=== PATIENT | male | born 1930 | race Caucasian/White ===

== ENCOUNTER → 2016-03-27 | Outpatient (CLI) | payer OTHER ==
[~2016-03-27] MED LIST: ACT15 PO; ACT30 PO; ASPEC81 PO; ASPI81TA28 PO; ATOR-24 PO; CHOL1000 PO; CLOP1TAB15 PO; DOCU-94 PO; GLYB5TAB8 PO; INSDGI SC; KFL500 PO; LEVO100T PO; LEVO175T PO; LISI-729 PO; LORA-741 PO; METO25TA3 PO; METO50TA16 PO; MRLP17 PO; MULT-190 PO; MULTCHW PO; NTRGSL/4 UT; NVLGIPEN SQ; OMEG10007 PO; OMEP40CA41 PO; OPTIRAY 320 IV PRN; PRLSR20 PO; TRAM-10 PO
--- NOTE | 2016-03-27 16:40 | DIAGNOSTIC IMAGING REPORT ---
CT ANGIOGRAM OF THE BRAIN COMBO CLINICAL HISTORY: Headache. COMPARISON STUDY: CT of the brain dated 09/21/2006. TECHNIQUE: Before and following the IV administration of 116 cc of Optiray 320, CT angiogram of the brain was performed from the skull base to the vertex. Images are reviewed in the axial, sagittal, and coronal planes. 3-D MIPS images are created and assessed. IV contrast was administered without complication. CT DOSE: 755.30 mGy.cm FINDINGS: Brain parenchyma: There are age-related involutional changes noting mild patchy subcortical and periventricular microangiopathic disease. There is no hemorrhage, mass effect, or evidence of acute territorial ischemia by CT criteria. There is no evidence of enhancing mass lesion on the angiogram phase images. No extra-axial fluid collection is seen. Kay-white matter differentiation is preserved. Ventricles, sulci, and cisterns: Prominent secondary to involutional change. CT angiogram of the brain: There is atherosclerotic calcification of the cavernous carotid and vertebral arteries. There is origin of the left posterior cerebral artery. A diminutive right posterior communicating artery is identified. The internal carotid arteries are widely patent, as are the anterior and middle cerebral arteries. The vertebrobasilar system and posterior cerebral arteries are widely patent. The vertebral arteries are codominant. There is no aneurysm, high-grade stenosis, or focal vessel cutoff identified throughout the intracranial circulation. Dural sinuses: Clear as visualized. Orbits: The bony orbits are intact. The orbital contents are normal as visualized. There are bilateral ocular lens implants. Sinuses and mastoids: The visualized paranasal sinuses are clear. The mastoid air cells are well pneumatized. Calvarium: Unremarkable. IMPRESSION: 1. There is no hemorrhage, mass effect, or evidence of acute territorial ischemia by CT criteria. 2. Unremarkable CT angiogram of the brain. Electronically signed by: Gurdeep Lara M.D. 03/27/2016 4:39 PM Dictated Date/Time: 03/27/2016 4:33 PM
== END | disposition home or self-care (01) ==
LOC: C.CTS 15:47
PROVIDERS: ATTEND Internal Medicine Interventional Cardiology
DX: R51 Headache (principal)

== ENCOUNTER → 2016-04-13 | Outpatient (CLI) | payer OTHER ==
[~2016-04-13] MED LIST changes: -OPTIRAY 320 IV PRN
[2016-04-13 17:34] LABS: BASO % 0.5 %; BASO ABS # 0.03 K/uL (0-0.2); COMPLETE YES; EOS % 2.5 %; HEMATOCRIT 37.5 % (42-52); IG% 0.2 %; LYMPH % 23.6 %; LYMPH ABS # 1.31 K/uL (1.2-3.4); MEAN CELL VOLUME 88.4 fL (80-100); MEAN CORPUSCULAR HEMOGLOBIN 31.1 pg (25-34); MEAN CORPUSCULAR HGB CONC 35.2 g/dl (32-36); MEAN PLATELET VOLUME 10.3 fL (7.4-10.4); MONO % 8.5 %; NEUT % 64.7 %; PLATELET COUNT 163 K/uL (130-400); RED BLOOD COUNT 4.24 M/uL (4.7-6.1); WHITE BLOOD COUNT 5.54 K/uL (4.8-10.8)
[2016-04-13 17:42] LABS: ALT/SGPT 35 U/L (12-78); BLOOD UREA NITROGEN 20 mg/dl (7-18); CALCIUM 8.6 mg/dl (8.5-10.1); CARBON DIOXIDE 24 mmol/L (21-32); CHLORIDE 107 mmol/L (98-107); CHOLESTEROL 101 mg/dl (0-200); GLUCOSE 255 mg/dl (70-99); POTASSIUM 4.5 mmol/L (3.5-5.1); SODIUM 140 mmol/L (136-145)
[2016-04-13 17:51] LABS: ALB/GLOB RATIO 1.3 (0.9-2); ALKALINE PHOSPHATASE 79 U/L (45-117); AST/SGOT 24 U/L (15-37); CHOLESTEROL/HDL RATIO 2.4; HDL CHOLESTEROL 42 mg/dl; LDL CHOLESTEROL CALCULATED 33 mg/dl; TRIGLYCERIDES 129 mg/dl (0-150); VERY LOW DENSITY LIPOPROT CALC 26 mg/dl
== END | disposition home or self-care (01) ==
LOC: C.LABBFT 10:35
PROVIDERS: ATTEND Internal Medicine
DX: R42 Dizziness and giddiness (principal); E78.5 Hyperlipidemia, unspecified

== ENCOUNTER → 2016-04-15 | Outpatient (CLI) | payer OTHER ==
[2016-04-15 13:38] LABS: ESTIMATED AVERAGE GLUCOSE 154 mg/dl; HA1C FLAG Normal (Normal)
--- NOTE | 2016-04-15 14:47 | DIAGNOSTIC IMAGING REPORT ---
CERVICAL SPINE 5 VIEWS CLINICAL HISTORY: Neck pain. No history of trauma. FINDINGS: AP, lateral, bilateral oblique, and odontoid views of the cervical spine are obtained. No prior studies are available for comparison at the time of dictation. The skeletal structures are osteopenic. There is no radiographic evidence of fracture or subluxation. Vertebral body height and alignment are maintained throughout the cervical spine. The spinolaminar line is preserved. The odontoid process and lateral masses are intact as visualized on the open-mouth view. The top of the dens is obscured. Anterior osteophytes are seen throughout. Advanced degenerative disc space narrowing is seen at C5-C6. Moderate narrowing is seen at C3-C4. Mild narrowing is seen at the remaining levels. A posterior disc-osteophyte complex at C5-C6 likely contributes to mild acquired compromise of the central canal. The spinous processes are preserved. The prevertebral soft tissues are within normal limits. Multilevel bilateral neural foraminal stenosis is seen on the oblique views. Partially imaged apical lung parenchyma is grossly clear. IMPRESSION: 1. No acute bony abnormality is seen involving the cervical spine. 2. Osteopenia and multilevel cervical spondylosis as above. Dictated: 04/15/2016 2:15 PM Transcribed: 04/15/2016 2:46 PM [facility] Electronically signed by: Gurdeep Lara M.D. 04/15/2016 3:13 PM Dictated Date/Time: 04/15/2016 2:15 PM
== END | disposition home or self-care (01) ==
LOC: C.RAD 11:30
PROVIDERS: ATTEND Internal Medicine
DX: E11.8 Type 2 diabetes mellitus with unspecified complications (principal); M54.2 Cervicalgia; M85.88 Other specified disorders of bone density and structure, other site; M47.812 Spondylosis without myelopathy or radiculopathy, cervical region

== ENCOUNTER → 2016-05-15 | Outpatient (CLI) | payer OTHER ==
[2016-05-15 13:48] LABS: ESTIMATED AVERAGE GLUCOSE 160 mg/dl; HA1C FLAG Normal (Normal)
== END | disposition home or self-care (01) ==
LOC: C.LABBFT 08:42
PROVIDERS: ATTEND Physician Assistant Medical
DX: E11.8 Type 2 diabetes mellitus with unspecified complications (principal)

== ENCOUNTER → 2016-06-06 | Outpatient (CLI) | payer OTHER ==
[2016-06-06 13:09] LABS: BLOOD UREA NITROGEN 24 mg/dl (7-18)
== END | disposition home or self-care (01) ==
LOC: C.LAB 10:34
PROVIDERS: ATTEND Physician Assistant
DX: R42 Dizziness and giddiness (principal)

== ENCOUNTER 2016-08-31 17:50 | Inpatient (IN) | payer OTHER ==
[~2016-08-31] VITALS: Ht 177.8 cm; Wt 76.5 kg
[~2016-08-31 17:50] MED LIST changes: -ACT30 PO; -ASPI81TA28 PO; -CHOL1000 PO; -KFL500 PO; -LEVO175T PO; -LORA-741 PO; -METO25TA3 PO; -MRLP17 PO; -MULT-190 PO; -MULTCHW PO; -NTRGSL/4 UT; -OMEG10007 PO; -OMEP40CA41 PO; -PRLSR20 PO; -TRAM-10 PO
[2016-08-31] MEDS ORDERED: SODIUM CHLORIDE 0.9% 1000ML 1,000 ML IV STA (18:29)
[2016-08-31 18:50] LABS: BASO % 0.1 %; BASO ABS # 0.01 K/uL (0-0.2); COMPLETE YES; EOS % 0.2 %; HEMATOCRIT 32.2 % (42-52); IG% 0.3 %; LYMPH % 6.9 %; LYMPH ABS # 0.89 K/uL (1.2-3.4); MEAN CELL VOLUME 89.9 fL (80-100); MEAN CORPUSCULAR HEMOGLOBIN 30.4 pg (25-34); MEAN CORPUSCULAR HGB CONC 33.9 g/dl (32-36); MEAN PLATELET VOLUME 9.2 fL (7.4-10.4); MONO % 9.9 %; NEUT % 82.6 %; PLATELET COUNT 115 K/uL (130-400); RED BLOOD COUNT 3.58 M/uL (4.7-6.1); WHITE BLOOD COUNT 12.86 K/uL (4.8-10.8)
[2016-08-31] MEDS ORDERED: ASPI81TA28 PO (18:56)
[2016-08-31] MEDS ORDERED: LEVO175T PO (18:56)
[2016-08-31] MEDS ORDERED: OMEG10007 PO (18:56)
[2016-08-31] MEDS ORDERED: CHOL1000 PO (18:56)
[2016-08-31] MEDS ORDERED: PRLSR20 PO (18:56)
[2016-08-31] MEDS ORDERED: METO25TA3 PO (18:56)
[2016-08-31] MEDS ORDERED: NTRGSL/4 UT (18:56)
[2016-08-31] MEDS ORDERED: LORA-741 PO (18:56)
[2016-08-31] MEDS ORDERED: ACT30 PO (18:56)
[2016-08-31] MEDS ORDERED: GLYB5TAB8 PO (18:56)
[2016-08-31] MEDS ORDERED: TRAM-10 PO (18:56)
[2016-08-31] MEDS ORDERED: MULT-190 PO (18:56)
[2016-08-31] MEDS ORDERED: MULTCHW PO (18:56)
[2016-08-31] MEDS ORDERED: INSDGI SC (18:56)
[2016-08-31 19:05] LABS: INR 1.1 (0.9-1.1); PARTIAL THROMBOPLASTIN RATIO 1.2
--- NOTE | 2016-08-31 19:07 | DIAGNOSTIC IMAGING REPORT ---
CT OF THE HEAD WITHOUT CONTRAST CLINICAL HISTORY: Altered mental status. Headache. COMPARISON STUDY: Head CT March 27, 2016. CT DOSE: 537.48 mGy.cm TECHNIQUE: Helical axial images of the head were obtained without IV contrast. Automated exposure control was utilized for the study. A dose lowering technique was utilized adhering to the principles of ALARA. FINDINGS: No acute intracranial hemorrhage, midline shift or mass effect is present. Ventricular system is stable. Basilar cisterns are patent. There are no extra-axial collections. White matter hypodensities are unchanged and likely reflect small vessel disease. There are no findings to suggest acute dural sinus thrombosis or acute territorial infarct. There are no significant calvarial abnormalities. Visualized portions of the sinuses and mastoid air cells are clear. IMPRESSION: No acute intracranial findings. Electronically signed by: Jong Mann M.D. 08/31/2016 7:06 PM Dictated Date/Time: 08/31/2016 7:02 PM
[2016-08-31 19:15] LABS: ALT/SGPT 22 U/L (12-78); AST/SGOT 13 U/L (15-37); BLOOD UREA NITROGEN 25 mg/dl (7-18); BUN/CREATININE RATIO 20.4 (10-20); CALCIUM 8.2 mg/dl (8.5-10.1); CARBON DIOXIDE 24 mmol/L (21-32); CHLORIDE 104 mmol/L (98-107); GLUCOSE 153 mg/dl (70-99); MAGNESIUM 1.6 mg/dl (1.8-2.4); POTASSIUM 4.1 mmol/L (3.5-5.1); SODIUM 134 mmol/L (136-145)
--- NOTE | 2016-08-31 19:16 | DIAGNOSTIC IMAGING REPORT ---
CHEST ONE VIEW PORTABLE CLINICAL HISTORY: Altered mental status. Weakness. COMPARISON STUDY: Chest radiograph January 12, 2016. FINDINGS: This study is mildly compromised by motion artifact. Cardiac size is at the upper limits of normal. There is no evidence of pulmonary edema. No pneumothorax or pleural effusion is present. Linear left basilar opacity is suggestive of atelectasis. There is no consolidation to suggest pneumonia. IMPRESSION: No acute cardiopulmonary findings. Electronically signed by: Jong Mann M.D. 08/31/2016 7:15 PM Dictated Date/Time: 08/31/2016 7:13 PM
[2016-08-31] MEDS ORDERED: MAGNESIUM SULFATE 1GM / D5W 1 GM BAG IV STA (19:17)
[2016-08-31 19:22] LABS: ALKALINE PHOSPHATASE 60 U/L (45-117); CKMB/CK RATIO 1.1 (0-3.0)
--- NOTE | 2016-08-31 19:23 | EMERGENCY ROOM VISIT NOTE ---
History Report prepared by Xavi: Yu Encarnacion Under the Supervision of: Berenice ElliottO. First contact with patient: 18:22 Chief Complaint: HEADACHE Stated Complaint: HEADACHE NAUSEA History of Present Illness The patient is a 86 year old male who presents to the Emergency Room via EMS with complaints of a severe headache starting last night. As per , the patient started having dizziness about 2-3 days ago. He had been staggering and was unable to ambulate as normal. The patient describes the dizziness as room- spinning. The dizziness worsened last night. He had a fall this afternoon. As per , the patient was very confused last night. The patient also reports right arm weakness starting about a week ago. He reports increased thirst today. The patient denies any pain currently. He denies doing work outside in the sun. As per , he was recently started on a new pain killer but she is unable to recall the name at this time. He does not have a history of stroke or blood clots. The patient has a history of cardiac stent placement. He denies fevers, chills, chest pain, shortness of breath, nausea, vomiting, or any other complaints. Source of History: patient, spouse/significant other Onset: last night Position: head Symptom Intensity: severe Timing: resolved, other (No pain currently) Associated Symptoms: No fevers, No chills, No chest pain, No SOB, No nausea , No vomiting Review of Systems See HPI for pertinent positives & negatives. A total of 10 systems reviewed and were otherwise negative. Past Medical & Surgical Medical Problems: (1) Acid reflux (2) Altered mental status (3) Coronary artery disease (4) Diabetes (5) High cholesterol (6) Leukocytosis Family History Patient reports no known family medical history. Social History Smoking Status: Never Smoker Marital Status: Housing Status: lives with family Occupation Status: retired Current/Historical Medications Scheduled Aspirin (Aspirin Ec), 81 MG PO DAILY Atorvastatin (Lipitor), 40 MG PO HS Cholecalciferol (Vitamin D3), 1 TAB PO DAILY Clopidogrel (Plavix), 75 MG PO DAILY Docusate Sodium (Colace), 1 CAP PO TID Fish Oil ([place]-3), 1 CAP PO DAILY Glyburide (Micronase), 5 MG PO BID Insulin Aspart (Novolog Flexpen), 1 DOSE SQ UD Insulin Glargine (Lantus), 16 UNITS SC QPM Levothyroxine Sodium (Synthroid), 175 MCG PO DAILY Lisinopril (Zestril), 5 MG PO DAILY Lorazepam (Ativan), 0.5 MG PO UD Metoprolol Succ (Toprol Xl) (Toprol-Xl), 25 MG PO DAILY Multiple Vitamins W/ Minerals (Centrum Silver), 1 TAB PO DAILY Nitroglycerin (Nitrostat), 0.4 MG UT PRN Ocuvite Preservision (Ocuvite Preservision), 1 TAB PO BID Omeprazole (Prilosec), 20 MG PO DAILY Pioglitazone (Actos), 45 MG PO DAILY Scheduled PRN Tramadol (Ultram), 50 MG PO Q6 PRN for Pain Allergies Coded Allergies: Metformin (Verified Allergy, Unknown, UNKNOWN, 01/12/16) Physical Exam Vital Signs Date Time Temp Pulse Resp B/P (MAP) Pulse Ox O2 Delivery O2 Flow Rate FiO2 08/31/16 19:22 82 20 111/56 94 Room Air 08/31/16 19:18 70 142/68 82 139/69 86 111/56 08/31/16 18:47 79 20 135/61 95 Room Air 08/31/16 18:37 94 Room Air 08/31/16 18:25 69 08/31/16 18:06 94 Room Air 08/31/16 18:06 36.9 76 21 138/64 94 Room Air Physical Exam GENERAL: Patient is awake, alert, somewhat anxious appearing but overall comfortable. EYES: The conjunctivae are clear. The pupils are round and reactive. EARS, NOSE, MOUTH AND THROAT: The nose is without any evidence of any deformity. Mucous membranes are moist tongue is midline NECK: The neck is nontender and supple. RESPIRATORY: Normal respiratory effort is noted there is no evidence of wheezing rhonchi or rales CARDIOVASCULAR: Ectopy noted to auscultation, no definite murmurs noted. GASTROINTESTINAL: The abdomen is soft. Bowel sounds are present in all quadrants. Abdomen is nontender MUSCULOSKELETAL/EXTREMITIES: There is no evidence of gross deformity full range of motion is noted in the hips and shoulders SKIN: Trace pedal edema bilaterally. There is no obvious evidence of any rash. There are no petechiae, pallor or cyanosis noted. NEUROLOGIC: Patient is awake alert and oriented to person, place but not time. 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 Medical Decision & Procedures ER Provider Diagnostic Interpretation: X-ray results as stated below per interpretation by me and the radiologist. CHEST ONE VIEW PORTABLE CLINICAL HISTORY: Altered mental status. Weakness. COMPARISON STUDY: Chest radiograph January 12, 2016. FINDINGS: This study is mildly compromised by motion artifact. Cardiac size is at the upper limits of normal. There is no evidence of pulmonary edema. No pneumothorax or pleural effusion is present. Linear left basilar opacity is suggestive of atelectasis. There is no consolidation to suggest pneumonia. IMPRESSION: No acute cardiopulmonary findings. Electronically signed by: Jong Mann M.D. 08/31/2016 7:15 PM Dictated Date/Time: 08/31/2016 7:[address] results as stated below per my review and radiologist interpretation. CT OF THE HEAD WITHOUT CONTRAST CLINICAL HISTORY: Altered mental status. Headache. COMPARISON STUDY: Head CT March 27, 2016. CT DOSE: 537.48 mGy.cm TECHNIQUE: Helical axial images of the head were obtained without IV contrast. Automated exposure control was utilized for the study. A dose lowering technique was utilized adhering to the principles of ALARA. FINDINGS: No acute intracranial hemorrhage, midline shift or mass effect is present. Ventricular system is stable. Basilar cisterns are patent. There are no extra-axial collections. White matter hypodensities are unchanged and likely reflect small vessel disease. There are no findings to suggest acute dural sinus thrombosis or acute territorial infarct. There are no significant calvarial abnormalities. Visualized portions of the sinuses and mastoid air cells are clear. IMPRESSION: No acute intracranial findings. Electronically signed by: Jong Mann M.D. 08/31/2016 7:06 PM Dictated Date/Time: 08/31/2016 7:02 PM Laboratory Results Test 08/31/16 18:35 Prothrombin Time 12.0 SECONDS (9.0-12.0) Prothromb Time International Ratio 1.1 (0.9-1.1) Activated Partial Thromboplast Time 30.6 SECONDS (21.0-31.0) Partial Thromboplastin Ratio 1.2 Magnesium Level 1.6 mg/dl (1.8-2.4) Total Bilirubin 0.7 mg/dl (0.2-1) Direct Bilirubin 0.2 mg/dl (0-0.2) Aspartate Amino Transf (AST/SGOT) 13 U/L (15-37) Alanine Aminotransferase (ALT/SGPT) 22 U/L (12-78) Alkaline Phosphatase 60 U/L (45-117) Total Creatine Kinase 76 U/L (39-308) Creatine Kinase MB 0.8 ng/ml (0.5-3.6) Creatine Kinase MB Ratio 1.1 (0-3.0) Troponin I < 0.015 ng/ml (0-0.045) Total Protein 5.9 gm/dl (6.4-8.2) Albumin 3.1 gm/dl (3.4-5.0) Lipase 37 U/L (73-393) Thyroid Stimulating Hormone (TSH) 0.300 uIu/ml (0.300-4.500) Laboratory results per my review. Medications Administered Medications (Trade) Dose Ordered Sig/Nathaniel Route Start Time Stop Time Status Last Admin Dose Admin Sodium Chloride 1,000 ml @ 999 mls/hr Q1H1M STAT IV 08/31/16 18:29 08/31/16 19:29 DC 08/31/16 18:47 999 MLS/HR Magnesium Sulfate (Magnesium Sulfate) 1 gm NOW STAT IV 08/31/16 19:17 08/31/16 19:18 DC 08/31/16 19:28 1 GM ECG Indication: weakness Rate (beats per minute): 79 Rhythm: sinus rhythm Findings: 1st degree AV block, PVC (frequent), other (No acute ST segment abnormalities) Comparison ECG Date: January 12, 2016 Change: no significant change ED Course 1821: The patient was evaluated in room C02B. A complete history and physical examination were performed. 1828: Sodium Chloride 1000 ml @ 999 mls/hr IV 1916: Magnesium Sulfate 1 gm IV 1944: Upon reevaluation, the patient is resting comfortably. I discussed results and treatment plan with him. He verbalizes agreement and understanding. The patient will be evaluated for further management and care. 1952: I discussed the patient's case [facility] Medical Decision Prior records/ancillary studies reviewed and summarized above. Nursing notes reviewed. Additional history obtained from .. Differential diagnosis: Etiologies such as metabolic, infection, hypo/hyperglycemia, electrolyte abnormalities, cardiac sources, intracerebral event, toxicologic, neurologic, as well as others were entertained. The patient is an 86-year-old male who presented to the emergency department with altered mental status. His states that he's been very unsteady and he' s had headache recently. When his daughter presented to the emergency Department she noticed that he was very confused more than usual. I discussed the patient's laboratory and radiographic studies with him and his family. He was treated with IV fluids. He had an elevated white blood cell count. I discussed his case with the on-call [facility] hospitalist group. Urinalysis was still pending but I do feel is likely the patient has urinary tract infection because she's been complaining of urinary frequency. I discussed this possibility with the hospitalist group. They've agreed to follow-up the urine and start the patient on an antibiotic if it was noted to be consistent with infection. Medication Reconcilliation Current Medication List: was personally reviewed by me Blood Pressure Screening Patient's blood pressure: Normal blood pressure Consults Time Called: 1948 Consulting Physician: Sandy Langley PA-C with [facility] Returned Call: 1952 I discussed the patient's case with Sandy Langley [facility]. Impression Primary Impression: Altered mental status Additional Impressions: Headache Orthostatic hypotension Urinary tract infection Hypomagnesemia Scribe Attestation The scribe's documentation has been prepared under my direction and personally reviewed by me in its entirety. I confirm that the note above accurately reflects all work, treatment, procedures, and medical decision making performed by me. Departure Information Dispostion Being Evaluated By Hospitalist Referrals Aron Busch M.D. (PCP) Patient Instructions My [facility] Problem Qualifiers Primary Impression: Altered mental status Altered mental status type: unspecified Qualified Codes: R41.82 - Altered mental status, unspecified Additional Impressions: Headache Headache type: unspecified
[2016-08-31] MEDS ORDERED: MAGNESIUM HYDROXIDE SUSP 30 ML UDC PO PRN (20:30)
[2016-08-31] MEDS ORDERED: ONDANSETRON INJ 2 MG/ML 2 ML VIAL IV PRN (20:30)
[2016-08-31] MEDS ORDERED: NITROGLYCERIN 0.4 MG SL PER TAB CHARGE UT PRN (20:30)
[2016-08-31] MEDS ORDERED: POLYETHYLENE (MIRALAX) 17 GM PACK PO PRN (20:30)
[2016-08-31] MEDS ORDERED: GLUCOSE 10 TABS/TUBE PO PRN (20:45)
[2016-08-31] MEDS ORDERED: GLUCOSE 40% GEL 15 GM TUBE PO PRN (20:45)
[2016-08-31] MEDS ORDERED: DEXTROSE 50% 50 ML SYR IV PRN (20:45)
[2016-08-31] MEDS ORDERED: GLUCAGON FOR INJ 1 MG VIAL SQ PRN (20:45)
--- NOTE | 2016-08-31 20:56 | History and Physical ---
History & Physical Date & Time of Service: Aug 31, 2016 at 20:30 Chief Complaint: Headache Nausea Primary Care Physician: Aron Busch M.D. History of Present Illness Source: patient This is a pleasant 86 yo M, nicknamed Wilfredo, with PMHx of CAD status post CABG x 1 CANDIE to ostial RCA December 2015, hypertension, hyperlipidemia, DM type II with peripheral neuropathy, CKD stage III, Sanjay's thyroiditis, GERD, BPH and prostatitis, cervical disk disease with associated headache, who presents to the emergency department after a 2 day period of confusion, weakness, and urinary symptoms. The patient's is present with him at bedside. The patient reports that he has had 3 days of intermittent confusion and altered mental status. notes that today he appeared to be so confused that he had some slurring of speech. At one point he was sitting in his chair and was unable to stand up, whereas typically he is a very active person. The patient specifically notes that he has had increased urinary frequency 4 days, burning with urination, darkened urine and incontinence today. He has not experienced these types of symptoms before. There is a report low-grade temperature upon EMS arrival. He reports his oral intake of food and liquids has been the same in comparison he also complains of a headache that lasted approximately 2 days but is not present currently. It starts in the posterior part of his head and causes significant pain. He has been taking tramadol for this. On review of outpatient records the patient had been seen by PCP for headache complaints and it was thought that this is due to cervical disc disease. He was not able to tolerate an MRI due to claustrophobia even with light sedation with 0.5 mg of Ativan PO prior to procedure. Here in the ER a CT of the head was completed and is grossly normal. WBC=12.86 , hemoglobin= 10.9, creatinine = 1.2. Past Medical/Surgical History Medical Problems: (1) Acid reflux Status: Chronic (2) Diabetes Status: Chronic (3) High cholesterol Status: Chronic CAD status post CABG x 1 CANDIE to ostial RCA December 2015, hypertension hyperlipidemia DM type II with peripheral neuropathy CKD stage III Hx Sanjay's thyroiditis GERD BPH prostatitis Family History Patient reports no known family medical history. Social History Smoking Status: Never Smoker Marital Status: Occupational Status: retired Multi-Drug Resistant Organisms History of MDRO: No Allergies Coded Allergies: Metformin (Verified Allergy, Unknown, UNKNOWN, 01/12/16) Home Medications Scheduled Aspirin (Aspirin Ec), 81 MG PO DAILY Atorvastatin (Lipitor), 40 MG PO HS Cholecalciferol (Vitamin D3), 1 TAB PO DAILY Clopidogrel (Plavix), 75 MG PO DAILY Docusate Sodium (Colace), 1 CAP PO TID Fish Oil ([place]-3), 1 CAP PO DAILY Glyburide (Micronase), 5 MG PO BID Insulin Aspart (Novolog Flexpen), 1 DOSE SQ UD Insulin Glargine (Lantus), 16 UNITS SC QPM Levothyroxine Sodium (Synthroid), 175 MCG PO DAILY Lisinopril (Zestril), 5 MG PO DAILY Lorazepam (Ativan), 0.5 MG PO UD Metoprolol Succ (Toprol Xl) (Toprol-Xl), 25 MG PO DAILY Multiple Vitamins W/ Minerals (Centrum Silver), 1 TAB PO DAILY Nitroglycerin (Nitrostat), 0.4 MG UT PRN Ocuvite Preservision (Ocuvite Preservision), 1 TAB PO BID Omeprazole (Prilosec), 20 MG PO DAILY Pioglitazone (Actos), 45 MG PO DAILY Scheduled PRN Tramadol (Ultram), 50 MG PO Q6 PRN for Pain Review of Systems Constitutional: No fever, sweats or chills Eyes: No diplopia, + chronic double vision out of the left eye status post cataract surgery ENT: normal hearing, no trouble swallowing, has history of eye lateral ear pain associated with headache Respiratory: No cough, sputum, dyspnea at rest or on exertion Cardiovascular: No chest pain, tightness or palpitations Abdomen: No pain, nausea, vomiting, diarrhea or constipation Uro: + Increased frequency, + burning, + slightly dark urine, denies hematuria Musculoskeletal: No joint pain, calf pain, swelling Neurologic: + weakness, + peripheral neuropathy, no balance problems, ambulates without assistance Psychiatric: No anxiety or depression Skin: No rash or itch Physical Exam Vital Signs Date Time Temp Pulse Resp B/P (MAP) Pulse Ox O2 Delivery O2 Flow Rate FiO2 08/31/16 19:22 82 20 111/56 94 Room Air 08/31/16 19:18 70 142/68 82 139/69 86 111/56 08/31/16 18:47 79 20 135/61 95 Room Air 08/31/16 18:37 94 Room Air 08/31/16 18:25 69 08/31/16 18:06 94 Room Air 08/31/16 18:06 36.9 76 21 138/64 94 Room Air General: awake, alert, no apparent distress Head: Normocephalic, atraumatic ENT: PERRL, EOMI, no pharyngeal exudate, mucous membranes moist Chest: Clear to auscultation, on room air, no adventitious breath sounds Cardiac: Regular rate and rhythm, + S3, no murmur, no JVD, normal peripheral pulses, good capillary refill Abdominal: NABS x 4 quadrants, soft, nontender to palpation, no rebound, guarding or tenderness Extremities: Normal inspection, no peripheral edema or erythema, calfs nontender to palpation Psych: Normal mood and affect Neuro: AAO x 3, strength intact bilaterally and related 5/5, no motor deficits, speech is clear, no peripheral sensory deficits Diagnostics Laboratory Results Results Past 24 Hours Test 08/31/16 18:35 08/31/16 18:45 Range/Units White Blood Count 12.86 4.8-10.8 K/uL Red Blood Count 3.58 4.7-6.1 M/uL Hemoglobin 10.9 14.0-18.0 g/dL Hematocrit 32.2 42-52 % Mean Corpuscular Volume 89.9 80-100 fL Mean Corpuscular Hemoglobin 30.4 25-34 pg Mean Corpuscular Hemoglobin Concent 33.9 32-36 g/dl Platelet Count 115 130-400 K/uL Mean Platelet Volume 9.2 7.4-10.4 fL Neutrophils (%) (Auto) 82.6 % Lymphocytes (%) (Auto) 6.9 % Monocytes (%) (Auto) 9.9 % Eosinophils (%) (Auto) 0.2 % Basophils (%) (Auto) 0.1 % Neutrophils # (Auto) 10.63 1.4-6.5 K/uL Lymphocytes # (Auto) 0.89 1.2-3.4 K/uL Monocytes # (Auto) 1.27 0.11-0.59 K/uL Eosinophils # (Auto) 0.02 0-0.5 K/uL Basophils # (Auto) 0.01 0-0.2 K/uL RDW Standard Deviation 39.8 36.4-46.3 fL RDW Coefficient of Variation 12.1 11.5-14.5 % Immature Granulocyte % (Auto) 0.3 % Immature Granulocyte # (Auto) 0.04 0.00-0.02 K/uL Prothrombin Time 12.0 9.0-12.0 SECONDS Prothromb Time International Ratio 1.1 0.9-1.1 Activated Partial Thromboplast Time 30.6 21.0-31.0 SECONDS Partial Thromboplastin Ratio 1.2 Sodium Level 134 136-145 mmol/L Potassium Level 4.1 3.5-5.1 mmol/L Chloride Level 104 98-107 mmol/L Carbon Dioxide Level 24 21-32 mmol/L Anion Gap 6.0 3-11 mmol/L Blood Urea Nitrogen 25 7-18 mg/dl Creatinine 1.20 0.60-1.40 mg/dl Est Creatinine Clear Calc Drug Dose 45.6 ml/min Estimated GFR () 63.1 Estimated GFR (Non- 54.4 BUN/Creatinine Ratio 20.4 10-20 Random Glucose 153 70-99 mg/dl Calcium Level 8.2 8.5-10.1 mg/dl Magnesium Level 1.6 1.8-2.4 mg/dl Total Bilirubin 0.7 0.2-1 mg/dl Direct Bilirubin 0.2 0-0.2 mg/dl Aspartate Amino Transf (AST/SGOT) 13 15-37 U/L Alanine Aminotransferase (ALT/SGPT) 22 12-78 U/L Alkaline Phosphatase 60 45-117 U/L Total Creatine Kinase 76 39-308 U/L Creatine Kinase MB 0.8 0.5-3.6 ng/ml Creatine Kinase MB Ratio 1.1 0-3.0 Troponin I < 0.015 0-0.045 ng/ml Total Protein 5.9 6.4-8.2 gm/dl Albumin 3.1 3.4-5.0 gm/dl Lipase 37 73-393 U/L Thyroid Stimulating Hormone (TSH) 0.300 0.300-4.500 uIu/ml Bedside Glucose 154 70-99 mg/dl Microbiology Results 08/31/16 Blood Culture, Tanmay Batch Pending 08/31/16 Blood Culture, Tanmay Batch Pending Diagnostic Radiology CT OF THE HEAD WITHOUT CONTRAST CLINICAL HISTORY: Altered mental status. Headache. COMPARISON STUDY: Head CT March 27, 2016. CT DOSE: 537.48 mGy.cm TECHNIQUE: Helical axial images of the head were obtained without IV contrast. Automated exposure control was utilized for the study. A dose lowering technique was utilized adhering to the principles of ALARA. FINDINGS: No acute intracranial hemorrhage, midline shift or mass effect is present. Ventricular system is stable. Basilar cisterns are patent. There are no extra-axial collections. White matter hypodensities are unchanged and likely reflect small vessel disease. There are no findings to suggest acute dural sinus thrombosis or acute territorial infarct. There are no significant calvarial abnormalities. Visualized portions of the sinuses and mastoid air cells are clear. IMPRESSION: No acute intracranial findings. Electronically signed by: Jong Mann M.D. 08/31/2016 7:06 PM Dictated Date/Time: 08/31/2016 7:02 PM The status of this report is Signed. CHEST ONE VIEW PORTABLE CLINICAL HISTORY: Altered mental status. Weakness. COMPARISON STUDY: Chest radiograph January 12, 2016. FINDINGS: This study is mildly compromised by motion artifact. Cardiac size is at the upper limits of normal. There is no evidence of pulmonary edema. No pneumothorax or pleural effusion is present. Linear left basilar opacity is suggestive of atelectasis. There is no consolidation to suggest pneumonia. IMPRESSION: No acute cardiopulmonary findings. Electronically signed by: Jong Mann M.D. 08/31/2016 7:15 PM Dictated Date/Time: 08/31/2016 7:13 PM The status of this report is Signed. EKG Vent. rate 79 BPM LA interval 214 ms QRS duration 98 ms QT/QTc 374/428 ms P-R-T axes 22 -32 42 Sinus rhythm with 1st degree A-V block with frequent Premature ventricular complexes Left axis deviation Abnormal ECG When compared with ECG of 12-JAN-2016 11:14, No significant change was found Impression Assessment and Plan This is a pleasant 86 yo M, nicknamed Chub, with PMHx of CAD status post CABG x 1 CANDIE to ostial RCA December 2015, hypertension, hyperlipidemia, DM type II with peripheral neuropathy, CKD stage III, Sanjay's thyroiditis, GERD, BPH and prostatitis,cervical disk disease with associated headache, who presents to the emergency department after a 2 day period of confusion, weakness, and urinary symptoms. Confusion/ weakness/ urinary tract symptoms - Admit to [facility] - Obtain blood cultures 2, UA with urine culture if indicated - patient has not received any antibiotics yet- Will start on rocephin IV after UA collected - Leukocytosis with WBC = 12.86 - Patient was administered 1 L of normal saline in the ER, continue maintenance fluids at 80mL/hr for now - Vital signs are stable - PT/OT eval's for increased weakness, patient typically ambulates without assistance - CT of the head reviewed and is negative for any acute findings, CAD status post CABG with one CANDIE placed in ostial RCA Hypertension - Continue Plavix 75 mg daily, metoprolol succinate 25 mg PO QD, lisinopril 5 mg QAM - Follows with Dr. Zhang as an outpatient - EKG reviewed showing first-degree AV block CKD stage III - Cr.= 1.2, baseline appears to be 1.1- 1.2 Hypothyroidism -Continue Synthroid 175 g daily Diabetes mellitus type 2 - Continue Lantus 16 units QPM - Hold Actos and glyburide for now - insulin sliding scale with Accu-Cheks ACHS - Check A1c with morning labs Cervical Disk disease - LEE workup as an outpt, unable to obtain MRI due to claustrophobia - Cont tramadol and tylenol for pain. GERD -Continue pantoprazole 40 mg QAM DVT prophylaxis: Teds, SCDs, heparin subcutaneous CODE STATUS: Full code Disposition: Patient from home, lives with , discharge when medically stable. PA Physician Supervision Note: I interviewed and examined the patient. Discussed with Cheyanne Langley PAC and agree with findings and plan as documented in the note. Any exceptions or clarifications are listed here: None 86-year-old male with a few days' worth history of encephalopathy gait instability and weakness he does exhibit some urinary symptoms. He is a baseline chronic headache which is attributed to cervical disc disease which he says is slightly worsened over the last few days. He has a cardiac history which has been stable. His vital signs are reviewed and he is afebrile His physical exam is nonfocal which leads us to believe that he may have a urinary infection. Patient started on Rocephin for suspected UTI POA with metabolic encephalopathy blood cultures and urine cultures are pending For his chronic neck pain we'll use light doses of opiate and nonopiate pain control Diabetic control we will hold his oral medications and use basal bolus insulin. This Hypomagnesemia - Replete PT OT eval in the morning Documented By: Parag Ferrera Level of Care Med/Surg Resuscitation Status FULL RESUSCITATION VTE Prophylaxis VTE Risk Assessment Done? Y/N: Yes Risk Level: Low Given or contraindicated: Unfractionated heparin SQ, T.E.D. Stockings, SCD's
[2016-08-31 21:37] LABS: MANUAL MICROSCOPIC REQUIRED? NO; REVIEW REQ? NO; URINE APPEARANCE CLEAR (CLEAR); URINE BILIRUBIN NEG (NEG); URINE COLOR DK YELLOW; URINE EPITHELIAL CELL AUTO 0-5 /lpf (0-5); URINE NITRITE POS (NEG); URINE SPECIFIC GRAVITY 1.022 (1.000-1.030); UROBILINOGEN NEG (NEG); ZZURINE CULT IF INDIC CATH YES
[2016-08-31 21:53] VITALS: BP 132/81; PULSE 75; TEMP 36.3; O2SAT 95; Ht 177.8 cm; Wt 76.5 kg
[2016-08-31] MEDS ORDERED: MAGNESIUM SULFATE 1GM / D5W 1 GM in PREMIXED IN D5W 100 ML IV ONE (22:00)
[2016-08-31] MEDS ORDERED: CEFTRIAXONE SOD INJ 500 MG in DEXTROSE 5% 50ML 50 ML IV SCH (22:00)
[2016-08-31] MEDS: ATORVASTATIN 40 MG TAB PO SCH (22:24)
[2016-08-31] MEDS: DOCUSATE SODIUM 100 MG CAP PO SCH (22:24)
[2016-08-31] MEDS: CEROVITE ADV FORMULA TAB PO SCH (22:26)
[2016-08-31] MEDS: INSULIN GLARGINE SOLOSTAR 100 UNITS/ML 3 ML PEN SC SCH (22:28)
[2016-08-31] MEDS: HEPARIN SOD 5000 UNIT/0.5 ML CARP SQ SCH (22:29)
[2016-08-31] MEDS: INSULIN ASPART 100 UNITS/ML 3 ML PEN SC SCH (22:29)
[2016-08-31 23:23] VITALS: BP 118/61; PULSE 66; TEMP 37.1; O2SAT 96
[2016-09-01] VITALS: O2SAT 95
[2016-09-01] MEDS: LEVOTHYROXINE 175 MCG TAB PO SCH (05:45)
[2016-09-01] MEDS: HEPARIN SOD 5000 UNIT/0.5 ML CARP SQ SCH ×3 (05:46→21:31)
[2016-09-01 06:05] LABS: BASO % 0.1 %; BASO ABS # 0.01 K/uL (0-0.2); COMPLETE YES; HEMATOCRIT 33.9 % (42-52); IG% 0.2 %; LYMPH % 11.7 %; LYMPH ABS # 1.22 K/uL (1.2-3.4); MEAN CELL VOLUME 90.4 fL (80-100); MEAN CORPUSCULAR HEMOGLOBIN 30.1 pg (25-34); MEAN CORPUSCULAR HGB CONC 33.3 g/dl (32-36); MEAN PLATELET VOLUME 9.3 fL (7.4-10.4); MONO % 8.4 %; NEUT % 78.6 %; PLATELET COUNT 117 K/uL (130-400); RED BLOOD COUNT 3.75 M/uL (4.7-6.1); WHITE BLOOD COUNT 10.41 K/uL (4.8-10.8)
[2016-09-01 06:42] LABS: BUN/CREATININE RATIO 17.9 (10-20); CALCIUM 8.3 mg/dl (8.5-10.1); CREATININE 1.1 mg/dl (0.60-1.40); POTASSIUM 3.8 mmol/L (3.5-5.1)
[2016-09-01 07:13] LABS: ESTIMATED AVERAGE GLUCOSE 160 mg/dl; HA1C FLAG Normal (Normal)
[2016-09-01] MEDS: CLOPIDOGREL BISULFATE 75 MG TAB PO SCH (07:34)
[2016-09-01] MEDS: ASPIRIN 81 MG ECTAB PO SCH (07:34)
[2016-09-01] MEDS: PANTOprazole SOD 40 MG TAB PO SCH (07:34)
[2016-09-01] MEDS: CHOLECALCIFEROL 1000 INTER.UNIT TAB PO SCH (07:34)
[2016-09-01] MEDS: MULTIVITAMIN TAB PO SCH (07:35)
[2016-09-01] MEDS: LISINOPRIL 5 MG TAB PO SCH (07:35)
[2016-09-01] MEDS: DOCUSATE SODIUM 100 MG CAP PO SCH ×3 (07:35→21:26)
[2016-09-01] MEDS: CEROVITE ADV FORMULA TAB PO SCH ×2 (07:35→21:27)
[2016-09-01] MEDS: OMEGA-3 (PURIFIED FISH OIL) 1 GM CAP PO SCH (07:35)
[2016-09-01 07:56] VITALS: BP 124/65; PULSE 77; TEMP 36.7; O2SAT 96
[2016-09-01] MEDS ORDERED: METOPROLOL SUCC 25MG EXT REL TAB PO SCH (08:00)
[2016-09-01] MEDS: INSULIN ASPART 100 UNITS/ML 3 ML PEN SC SCH ×4 (08:24→21:00)
[2016-09-01] MEDS: TRAMADOL HCL 50 MG TAB PO PRN (13:23)
--- NOTE | 2016-09-01 15:18 | Hospitalist Progress Note ---
Hospitalist Progress Note Date of Service Sep 01, 2016. (Palak Segura ., EUNICE) Subjective Pt evaluation today including: conversation w/ patient, physical exam, chart review, lab review, review of studies, review of inpatient medication list Patient states he is feeling well. States he is here because he was feeling weak. Oriented to person/place. +dysuria. He is eating and drinking OK. Patient denies any fever, chills, sweats, lightheadedness, dizziness, vision changes, CP, palpitations, edema, SOB, wheezing, cough, abdominal pain, nausea, vomiting, diarrhea, melena, numbness/tingling, weakness, muscle/joint pain, anxiety/depression, active bleeding, or new skin discoloration/changes. (Palak Segura ., LUBAC) Medications Current Inpatient Medications Medications (Trade) Dose Ordered Sig/Nathaniel Route Start Time Stop Time Status Last Admin Dose Admin Heparin Sodium (Porcine) (Heparin Sq 5000 Unit/0.5ml) 5,000 unit Q8H SQ 08/31/16 22:00 09/30/16 21:59 09/01/16 13:25 5,000 UNIT Acetaminophen (Tylenol Tab) 650 mg Q4H PRN PO 08/31/16 20:30 09/30/16 20:29 Magnesium Hydroxide (Milk Of Magnesia Susp) 30 ml Q6H PRN PO 08/31/16 20:30 09/30/16 20:29 Polyethylene (Miralax Powder Packet) 17 gm DAILY PRN PO 08/31/16 20:30 09/30/16 20:29 09/01/16 10:13 17 GM Ondansetron HCl (Zofran Inj) 4 mg Q6H PRN IV 08/31/16 20:30 09/30/16 20:29 Aspirin (Ecotrin Tab) 81 mg DAILY PO 09/01/16 08:00 10/01/16 08:59 09/01/16 07:34 81 MG Atorvastatin Calcium (Lipitor Tab) 40 mg HS PO 08/31/16 21:00 09/30/16 20:59 08/31/16 22:24 40 MG Cholecalciferol (Vitamin D Tab) 1,000 inter.unit DAILY PO 09/01/16 08:00 10/01/16 08:59 09/01/16 07:34 1,000 INTER.UNIT Clopidogrel Bisulfate (plAVix TAB) 75 mg DAILY PO 09/01/16 08:00 10/01/16 08:59 09/01/16 07:34 75 MG Docusate Sodium (coLACE CAP) 100 mg TID PO 08/31/16 21:00 09/30/16 20:59 09/01/16 13:23 100 MG Fish Oil ([place]-3 (Purified Fish Oil) Cap) 1 gm DAILY PO 09/01/16 08:00 10/01/16 08:59 09/01/16 07:35 1 GM Insulin Glargine (Lantus Solostar Pen) 16 units QPM SC 08/31/16 21:00 09/30/16 20:59 08/31/16 22:28 16 UNITS Levothyroxine Sodium (Synthroid Tab) 175 mcg DAILYBB PO 09/01/16 06:30 10/01/16 06:59 09/01/16 05:45 175 MCG Lisinopril (Zestril Tab) 5 mg DAILY PO 09/01/16 08:00 10/01/16 08:59 09/01/16 07:35 5 MG Metoprolol Succinate (Toprol Xl Tab) 25 mg DAILY PO 09/01/16 08:00 10/01/16 08:59 09/01/16 07:34 25 MG Nitroglycerin (Nitrostat Tab) 0.4 mg UD PRN UT 08/31/16 20:30 09/30/16 20:29 Multivitamins/ Minerals (Multivitamin W/ Minerals Tab) 1 tab BID PO 08/31/16 21:00 09/30/16 20:59 09/01/16 07:35 1 TAB Tramadol HCl (Ultram Tab) 50 mg Q6 PRN PO 08/31/16 20:30 09/30/16 20:29 09/01/16 13:23 50 MG Multivitamins (Multivitamin Tab) 1 tab QAM PO 09/01/16 08:00 10/01/16 08:59 09/01/16 07:35 1 TAB Pantoprazole Sodium (Protonix Tab) 40 mg QAM PO 09/01/16 08:00 10/01/16 08:59 09/01/16 07:34 40 MG Glucose (Glucose 40% Gel) 15-30 GRAMS 15 GRAMS... UD PRN PO 08/31/16 20:45 09/30/16 20:44 Glucose (Glucose Chew Tab) 4-8 Tablets 4 Tabl... UD PRN PO 08/31/16 20:45 09/30/16 20:44 Dextrose (Dextrose 50% 50ML Syringe) 25-50ML OF 50% DW IV FOR... UD PRN IV 08/31/16 20:45 09/30/16 20:44 Glucagon (Glucagon Inj) 1 mg UD PRN SQ 08/31/16 20:45 09/30/16 20:44 Insulin Aspart (novoLOG ASPART) SLIDING SCALE G... ACHS SC 08/31/16 21:00 09/30/16 20:59 09/01/16 12:42 3 UNITS Ceftriaxone Sodium 1000 mg/ Dextrose 60 ml @ 100 mls/hr Q24H IV 09/01/16 22:00 09/10/16 21:59 (Palak Segura, LELO-C) Objective Vital Signs Date Time Temp Pulse Resp B/P (MAP) Pulse Ox O2 Delivery O2 Flow Rate FiO2 09/01/16 08:00 Room Air 09/01/16 07:56 36.7 77 18 124/65 (84) 96 Room Air 09/01/16 00:00 95 Room Air 08/31/16 23:23 37.1 66 20 118/61 (80) 96 Room Air 08/31/16 21:53 36.3 75 18 132/81 95 Room Air 08/31/16 20:48 81 20 125/63 96 Room Air 08/31/16 19:22 82 20 111/56 94 Room Air 08/31/16 19:18 70 142/68 82 139/69 86 111/56 08/31/16 18:47 79 20 135/61 95 Room Air 08/31/16 18:37 94 Room Air 08/31/16 18:25 69 08/31/16 18:06 94 Room Air 08/31/16 18:06 36.9 76 21 138/64 94 Room Air (Palak Segura, PA-C) Physical Exam General Appearance: no apparent distress Eyes: normal inspection, PERRL ENT: hearing grossly normal Neck: supple Respiratory/Chest: lungs clear, no respiratory distress, no accessory muscle use Cardiovascular: regular rate, rhythm Abdomen: normal bowel sounds, non tender, soft Extremities: no pedal edema, no calf tenderness Neurologic/Psychiatric: alert, normal mood/affect, + disoriented (to date/time) Skin: normal color, warm/dry, no rash (Palak Segura, EUNICE) Laboratory Results Last 24 Hours Test 08/31/16 18:35 08/31/16 18:45 08/31/16 21:20 08/31/16 22:22 White Blood Count 12.86 K/uL Red Blood Count 3.58 M/uL Hemoglobin 10.9 g/dL Hematocrit 32.2 % Mean Corpuscular Volume 89.9 fL Mean Corpuscular Hemoglobin 30.4 pg Mean Corpuscular Hemoglobin Concent 33.9 g/dl Platelet Count 115 K/uL Mean Platelet Volume 9.2 fL Neutrophils (%) (Auto) 82.6 % Lymphocytes (%) (Auto) 6.9 % Monocytes (%) (Auto) 9.9 % Eosinophils (%) (Auto) 0.2 % Basophils (%) (Auto) 0.1 % Neutrophils # (Auto) 10.63 K/uL Lymphocytes # (Auto) 0.89 K/uL Monocytes # (Auto) 1.27 K/uL Eosinophils # (Auto) 0.02 K/uL Basophils # (Auto) 0.01 K/uL RDW Standard Deviation 39.8 fL RDW Coefficient of Variation 12.1 % Immature Granulocyte % (Auto) 0.3 % Immature Granulocyte # (Auto) 0.04 K/uL Prothrombin Time 12.0 SECONDS Prothromb Time International Ratio 1.1 Activated Partial Thromboplast Time 30.6 SECONDS Partial Thromboplastin Ratio 1.2 Sodium Level 134 mmol/L Potassium Level 4.1 mmol/L Chloride Level 104 mmol/L Carbon Dioxide Level 24 mmol/L Anion Gap 6.0 mmol/L Blood Urea Nitrogen 25 mg/dl Creatinine 1.20 mg/dl Est Creatinine Clear Calc Drug Dose 45.6 ml/min Estimated GFR () 63.1 Estimated GFR (Non- 54.4 BUN/Creatinine Ratio 20.4 Random Glucose 153 mg/dl Calcium Level 8.2 mg/dl Magnesium Level 1.6 mg/dl Total Bilirubin 0.7 mg/dl Direct Bilirubin 0.2 mg/dl Aspartate Amino Transf (AST/SGOT) 13 U/L Alanine Aminotransferase (ALT/SGPT) 22 U/L Alkaline Phosphatase 60 U/L Total Creatine Kinase 76 U/L Creatine Kinase MB 0.8 ng/ml Creatine Kinase MB Ratio 1.1 Troponin I < 0.015 ng/ml Total Protein 5.9 gm/dl Albumin 3.1 gm/dl Lipase 37 U/L Thyroid Stimulating Hormone (TSH) 0.300 uIu/ml Bedside Glucose 154 mg/dl 176 mg/dl Urine Color DK YELLOW Urine Appearance CLEAR Urine pH 5.0 Urine Specific [place] 1.022 Urine Protein TRACE Urine Glucose (UA) NEG Urine Ketones TRACE Urine Occult Blood 2+ Urine Nitrite POS Urine Bilirubin NEG Urine Urobilinogen NEG Urine Leukocyte Esterase MODERATE Urine WBC (Auto) >30 /hpf Urine RBC (Auto) 0-4 /hpf Urine Hyaline Casts (Auto) 5-10 /lpf Urine Epithelial Cells (Auto) 0-5 /lpf Urine Bacteria (Auto) 4+ Test 09/01/16 05:39 09/01/16 07:41 09/01/16 11:35 White Blood Count 10.41 K/uL Red Blood Count 3.75 M/uL Hemoglobin 11.3 g/dL Hematocrit 33.9 % Mean Corpuscular Volume 90.4 fL Mean Corpuscular Hemoglobin 30.1 pg Mean Corpuscular Hemoglobin Concent 33.3 g/dl Platelet Count 117 K/uL Mean Platelet Volume 9.3 fL Neutrophils (%) (Auto) 78.6 % Lymphocytes (%) (Auto) 11.7 % Monocytes (%) (Auto) 8.4 % Eosinophils (%) (Auto) 1.0 % Basophils (%) (Auto) 0.1 % Neutrophils # (Auto) 8.19 K/uL Lymphocytes # (Auto) 1.22 K/uL Monocytes # (Auto) 0.87 K/uL Eosinophils # (Auto) 0.10 K/uL Basophils # (Auto) 0.01 K/uL RDW Standard Deviation 40.2 fL RDW Coefficient of Variation 12.2 % Immature Granulocyte % (Auto) 0.2 % Immature Granulocyte # (Auto) 0.02 K/uL Sodium Level 138 mmol/L Potassium Level 3.8 mmol/L Chloride Level 106 mmol/L Carbon Dioxide Level 27 mmol/L Anion Gap 5.0 mmol/L Blood Urea Nitrogen 20 mg/dl Creatinine 1.10 mg/dl Est Creatinine Clear Calc Drug Dose 49.8 ml/min Estimated GFR () 70.1 Estimated GFR (Non- 60.5 BUN/Creatinine Ratio 17.9 Random Glucose 120 mg/dl Estimated Average Glucose 160 mg/dl Hemoglobin A1c 7.2 % Calcium Level 8.3 mg/dl Bedside Glucose 121 mg/dl 180 mg/dl (Palak Segura .EUNICE) Assessment and Plan This is a pleasant 86 yo M, nicknamed Chub, with PMHx of CAD status post CABG x 1 CANDIE to ostial RCA December 2015, hypertension, hyperlipidemia, DM type II with peripheral neuropathy, CKD stage III, Sanjay's thyroiditis, GERD, BPH and prostatitis,cervical disk disease with associated headache, who presents to the emergency department after a 2 day period of confusion, weakness, and urinary symptoms. Confusion/ weakness/ urinary tract symptoms - Admit to med/surg - BCx pending - UCx- growing gram negative bacilli- pending final cultures/sensitives - IV Rocephin- started on 08/31- transition to PO pending UCx - Leukocytosis with WBC = 12.86 on admission- RESOLVED - Maintenance IVF at 80mL/hr - CT of the head reviewed and is negative for any acute findings CAD s/p CABG with one CANDIE placed in ostial RCA/HTN- follows w/ Dr. Zhang: - Continue Plavix 75 mg daily, Metoprolol succinate 25 mg PO QD, Lisinopril 5 mg QAM, Lipitor 40 mg HS - EKG- first-degree AV block CKD stage III, baseline Cr. 1.1- 1.2- STABLE: Follow PRP Hypothyroidism -Continue Synthroid 175 g daily T2DM- ha1c=7.2%: - Hold Actos and glyburide - Continue Lantus 16 units QPM - Insulin sliding scale with Accu-Cheks ACHS Hypothyroidism: Continue Synthroid 175 mcg daily Cervical disc disease: - LEE workup as an outpt, unable to obtain MRI due to claustrophobia - Continue Tramadol and Tylenol for pain GERD: Continue Pantoprazole 40 mg QAM DVT Prophylaxis: Heparin Code Status: LEVEL I, FULL Disposition: Patient from home, lives with - social media intern consulted - PT/OT evaluations pending (Palak Segura, EUNICE) Resident Physician Supervision Note: I interviewed and examined the patient. Discussed with Palak Segura PAC and agree with findings and plan as documented in the note. Any exceptions or clarifications are listed here: None this pt is some what improved still confused has gram negative uti poa causing metabolic encephalopathy vitals are stable car is regular, lungs are clear continue Rocephin until speciation of culture PT/OT Documented By: Parag Ferrera (Parag Ferrera M.D.)
[2016-09-01 15:32] VITALS: BP 104/61; PULSE 54; TEMP 36.7; O2SAT 98
[2016-09-01 16:00] VITALS: O2SAT 98
[2016-09-01] MEDS: ATORVASTATIN 40 MG TAB PO SCH (21:26)
[2016-09-01] MEDS: INSULIN GLARGINE SOLOSTAR 100 UNITS/ML 3 ML PEN SC SCH (21:30)
[2016-09-01] MEDS ORDERED: CEFTRIAXONE SOD INJ 1,000 MG in DEXTROSE 5% 50ML 50 ML IV SCH (22:00)
[2016-09-01 22:49] VITALS: BP 127/67; PULSE 62; TEMP 37; O2SAT 98
[2016-09-02] VITALS (9 sets, daily range): BP systolic 104–162; BP diastolic 48–74; PULSE 44–95; TEMP 36.4–36.7; O2SAT 95–99
[2016-09-02] MEDS: TRAMADOL HCL 50 MG TAB PO PRN (00:28)
[2016-09-02] MEDS: ACETAMINOPHEN 325 MG TAB PO PRN (03:00)
[2016-09-02 05:44] LABS: BASO % 0.3 %; BASO ABS # 0.02 K/uL (0-0.2); COMPLETE YES; EOS % 2.3 %; HEMATOCRIT 31.3 % (42-52); IG% 0.3 %; LYMPH % 10.4 %; LYMPH ABS # 0.72 K/uL (1.2-3.4); MEAN CELL VOLUME 89.2 fL (80-100); MEAN CORPUSCULAR HEMOGLOBIN 28.5 pg (25-34); MEAN CORPUSCULAR HGB CONC 31.9 g/dl (32-36); MONO % 9.5 %; NEUT % 77.2 %; PLATELET COUNT 130 K/uL (130-400); RED BLOOD COUNT 3.51 M/uL (4.7-6.1); WHITE BLOOD COUNT 6.94 K/uL (4.8-10.8)
[2016-09-02] MEDS: HEPARIN SOD 5000 UNIT/0.5 ML CARP SQ SCH ×3 (06:00→20:32)
[2016-09-02] MEDS: LEVOTHYROXINE 175 MCG TAB PO SCH (06:23)
[2016-09-02 06:24] LABS: BUN/CREATININE RATIO 18.1 (10-20); CALCIUM 8.5 mg/dl (8.5-10.1); CREATININE 1.1 mg/dl (0.60-1.40); POTASSIUM 4.5 mmol/L (3.5-5.1)
[2016-09-02] MEDS: CEROVITE ADV FORMULA TAB PO SCH ×2 (09:15→20:28)
[2016-09-02] MEDS: CHOLECALCIFEROL 1000 INTER.UNIT TAB PO SCH (09:16)
[2016-09-02] MEDS: ASPIRIN 81 MG ECTAB PO SCH (09:16)
[2016-09-02] MEDS: CLOPIDOGREL BISULFATE 75 MG TAB PO SCH (09:16)
[2016-09-02] MEDS: MULTIVITAMIN TAB PO SCH (09:16)
[2016-09-02] MEDS: LISINOPRIL 5 MG TAB PO SCH (09:16)
[2016-09-02] MEDS: OMEGA-3 (PURIFIED FISH OIL) 1 GM CAP PO SCH (09:17)
[2016-09-02] MEDS: DOCUSATE SODIUM 100 MG CAP PO SCH ×3 (09:17→20:27)
[2016-09-02] MEDS: PANTOprazole SOD 40 MG TAB PO SCH (09:17)
[2016-09-02] MEDS: INSULIN ASPART 100 UNITS/ML 3 ML PEN SC SCH ×4 (09:57→20:29)
--- NOTE | 2016-09-02 18:00 | Progress Note ---
Subjective Date of Service: Sep 02, 2016. Subjective pt had a fall is found to be bradycardic and does have some achiness and musculoskeletal pain, no other issues, klebsiella uti poa hernandez sensitive Problem List Medical Problems: (1) Dyspnea on exertion Status: Acute (2) Headache Status: Acute (3) Orthostatic hypotension Status: Acute (4) Right-sided chest pain Status: Acute Review of Systems Constitutional: + weakness, No fever Eyes: No worsening of vision, No eye pain Respiratory: No cough, No shortness of breath Cardiac: No chest pain, No edema Abdomen: No pain, No nausea Male : No dysuria, No urinary frequency Neurologic: + memory loss, + weakness, + balance problems Psychiatric: No depression symptoms, No anhedonism Objective Vital Signs Date Time Temp Pulse Resp B/P (MAP) Pulse Ox O2 Delivery O2 Flow Rate FiO2 09/02/16 16:15 Room Air 09/02/16 15:58 36.4 72 16 123/48 (73) 98 Room Air 09/02/16 12:00 Room Air 09/02/16 12:00 36.5 69 16 141/71 (94) 96 Room Air 09/02/16 10:24 36.4 44 18 95 09/02/16 07:59 162/61 (94) 09/02/16 07:43 Room Air 09/02/16 07:21 36.4 44 18 142/72 (95) 95 Room Air 09/02/16 02:00 130/73 (92) 09/02/16 00:00 Room Air 09/01/16 22:49 37.0 62 18 127/67 (87) 98 Room Air Physical Exam General Appearance: WD/WN, + mild distress Eyes: PERRL, EOMI Neck: supple, no JVD Respiratory/Chest: chest non-tender, lungs clear, normal breath sounds Cardiovascular: + bradycardia, + systolic murmur Abdomen: normal bowel sounds, non tender, soft Extremities: no pedal edema, no calf tenderness Neurologic/Psychiatric: alert, + pertinent finding (oriented x2) Laboratory Results Last 24 Hours Test 09/01/16 20:26 09/02/16 05:27 09/02/16 11:32 09/02/16 16:43 Bedside Glucose 137 mg/dl 196 mg/dl 137 mg/dl White Blood Count 6.94 K/uL Red Blood Count 3.51 M/uL Hemoglobin 10.0 g/dL Hematocrit 31.3 % Mean Corpuscular Volume 89.2 fL Mean Corpuscular Hemoglobin 28.5 pg Mean Corpuscular Hemoglobin Concent 31.9 g/dl Platelet Count 130 K/uL Mean Platelet Volume 9.0 fL Neutrophils (%) (Auto) 77.2 % Lymphocytes (%) (Auto) 10.4 % Monocytes (%) (Auto) 9.5 % Eosinophils (%) (Auto) 2.3 % Basophils (%) (Auto) 0.3 % Neutrophils # (Auto) 5.36 K/uL Lymphocytes # (Auto) 0.72 K/uL Monocytes # (Auto) 0.66 K/uL Eosinophils # (Auto) 0.16 K/uL Basophils # (Auto) 0.02 K/uL RDW Standard Deviation 39.6 fL RDW Coefficient of Variation 12.3 % Immature Granulocyte % (Auto) 0.3 % Immature Granulocyte # (Auto) 0.02 K/uL Sodium Level 136 mmol/L Potassium Level 4.5 mmol/L Chloride Level 104 mmol/L Carbon Dioxide Level 28 mmol/L Anion Gap 4.0 mmol/L Blood Urea Nitrogen 20 mg/dl Creatinine 1.10 mg/dl Est Creatinine Clear Calc Drug Dose 49.8 ml/min Estimated GFR () 70.1 Estimated GFR (Non- 60.5 BUN/Creatinine Ratio 18.1 Random Glucose 174 mg/dl Calcium Level 8.5 mg/dl Assessment and Plan 86 M presented with encephalopathy found to have a hernandez sensitive klebsiella uti on presentation, ddeveloped some symptomatic bradycardia overnight 09/01- PMHx of CAD status post CABG x 1 CANDIE to ostial RCA December 2015, hypertension, hyperlipidemia, DM type II with peripheral neuropathy, CKD stage III, Sanjay's thyroiditis, GERD, BPH and prostatitis,cervical disk disease with associated headache, who presents to the emergency department after a 2 day period of confusion, weakness, and urinary symptoms. metabolic encephalopathy from klebsiella uti poa - IV Rocephin- started on 08/31- will move to po on discharge,one week course - CT of the head reviewed and is negative for any acute findings CAD s/p CABG with one CANDIE placed in ostial RCA/HTN- follows w/ Dr. Zhang: - Continue Plavix 75 mg daily, due to bradycardia will hold Metoprolol succinate 25 mg but continue Lisinopril 5 mg QAM, Lipitor 40 mg HS CKD stage III, baseline Cr. 1.1- 1.2- STABLE: Follow PRP T2DM- ha1c=7.2%: glucose in good control here - Hold Actos and glyburide - Continue Lantus 16 units QPM - Insulin sliding scale with Accu-Cheks ACHS Hypothyroidism: clinically stable Synthroid 175 mcg daily, tsh normal so as not to contribute to bradycardia Cervical disc disease: james and freda with pain - LEE workup as an outpt, unable to obtain MRI due to claustrophobia - Continue Tramadol and Tylenol for pain DVT Prophylaxis: Heparin Code Status: LEVEL I, FULL
[2016-09-02] MEDS: ATORVASTATIN 40 MG TAB PO SCH (20:27)
[2016-09-02] MEDS: INSULIN GLARGINE SOLOSTAR 100 UNITS/ML 3 ML PEN SC SCH (20:32)
[2016-09-02] MEDS: CEFTRIAXONE SOD INJ 1 GM in DEXTROSE 5% ADD-VANTAGE 50ML 50 ML IV SCH (21:30)
[2016-09-03 03:23] VITALS: BP 135/70; PULSE 82; TEMP 36.5; O2SAT 96
[2016-09-03] MEDS: LEVOTHYROXINE 175 MCG TAB PO SCH (05:47)
[2016-09-03] MEDS: HEPARIN SOD 5000 UNIT/0.5 ML CARP SQ SCH ×4 (05:47→20:58)
[2016-09-03 06:50] VITALS: BP 171/91; PULSE 111; TEMP 36.8; O2SAT 96
--- NOTE | 2016-09-03 07:06 | CARDIOLOGY CONSULTATION ---
DATE OF CONSULTATION: 09/02/2016 CONSULTATION REQUESTED BY: Dr. Ferrera. REASON FOR CONSULTATION: Bradycardia. HISTORY OF PRESENT ILLNESS: Mr. Lynn is a very pleasant 86-year-old man known to me from the outpatient setting with a history of coronary artery disease status post prior drug-eluting stent to his RCA, who was admitted 2 days ago in the setting of a UTI with altered mental status. The patient has had issues with persistent dizziness and intermittent headaches since the fall of 2015. Has been evaluated previously by ENT with plans for followup with neurology and additional neuro imaging. More recently, he had been doing well following cardiac rehab with reduced dizziness symptoms. He states that over the last 2-3 days, he had generally been more confused, has had increased fatigue and has felt dizzy, particularly with standing. As a result, EMS was contacted. Also of note, the patient has noted intermittent dysuria and hematuria over this time. He was found to have a UTI on admission, and was started on ceftriaxone with the patient endorsing improvement in urinary symptoms. The patient still endorses feeling weak and dizzy with standing. Last night, the patient had an event where he was attempting to go to the bathroom and lost his balance and fell into some furniture with some resulting pain, bruising on his left flank. He denies any chest pain, palpitations, heart failure symptoms today. PAST MEDICAL HISTORY: 1. Coronary artery disease status post prior drug-eluting stent to his RCA in December 2015. 2. Hypertension. 3. Hyperlipidemia. 4. Persistent headaches. 5. Hypothyroidism. 6. BPH. 7. Cervical disc disease. PAST SURGICAL HISTORY: Status post appendectomy, cholecystectomy and right rotator cuff repair. FAMILY HISTORY: Noncontributory. SOCIAL HISTORY: The patient is a . He is now remarried. 's name is Catherine. He has 5 children, and is a retired elevator repair mechanic. No tobacco, alcohol or drug use. HOME MEDICATIONS: Include, aspirin 81, atorvastatin 40, clopidogrel 75 mg daily, docusate, fish oil, glyburide 5 b.i.d., Lantus daily, levothyroxine, lisinopril 5, lorazepam, metoprolol succinate 25 mg daily, p.r.n. sublingual nitroglycerin, NovoLog, omeprazole, tramadol, vitamin D3. ALLERGIES: METFORMIN. REVIEW OF SYSTEMS: A 10 point review of systems completed and otherwise negative except as listed in HPI. PHYSICAL EXAMINATION: VITAL SIGNS: Temperature 36.4, pulse in the 70s, blood pressure is 162/61. He is satting 95% on room air. GENERAL: The patient appears comfortable, in no acute distress. HEENT: His sclerae are anicteric. Oropharynx is clear. Mucous membranes are moist. NECK: Supple. He has no jugular venous distention. LUNGS: Clear to auscultation bilaterally. He has some mild ecchymosis over his left posterior flank. CARDIAC: He is regular with occasional premature beat. No significant murmurs. ABDOMEN: Soft, nontender with positive bowel sounds. EXTREMITIES: Warm. He has intact radial pulses and 2+ DP pulses bilaterally. SKIN: Shows no other rashes or lesions. NEUROLOGIC: Grossly nonfocal. PSYCHIATRIC: He is appropriate and alert. LABORATORY DATA: White blood cell count 6.9, hemoglobin 10, platelets 130. INR 1.2. Sodium 136, potassium 4.5, BUN 20, creatinine of 1.1. Initial UA grossly positive consistent with a UTI. Urine culture grew out Klebsiella. Blood cultures, there have been no growth to date. IMAGING: Head CT on admission show no acute intracranial findings and a chest x-ray showed no acute cardiopulmonary findings. Cardiac, two EKGs since admission initially on presentation on August 31 showed sinus rhythm with occasional PVC, left axis deviation with poor R-wave progression but no dynamic ST changes, unchanged from prior. EKG obtained this morning, again showed sinus rhythm with ventricular rate of 68, occasional PVCs, nonspecific ST changes and no other new dynamic ST abnormalities. IMPRESSION AND PLAN: 1. Urinary tract infection/altered mental status/generalized fatigue. 2. Fall. 3. Bradycardia. 4. Frequent premature ventricular contractions. 5. Coronary artery disease status post prior percutaneous coronary intervention. 6. Persistent headaches/dizziness. The patient here in the setting of a urinary tract infection with altered mental status and generalized fatigue. His symptoms are improving on IV antibiotics. The patient had a fall yesterday and has been noted on vital sign checks to be bradycardic in the 40s during his admission. At present, the patient still with some generalized fatigue, but on a new telemetry he has a heart rates up into the 60s-70s with occasional/frequent premature ventricular contractions. Going forward, I agree with continued monitoring on telemetry. Beta deanne has been held. Concern now for acute cardiac process is relatively low and would plan to treat the patient conservatively at this time. Continue dual antiplatelet therapy with aspirin, and Plavix, continue current statin and lisinopril. If heart rates remain relatively stable, would plan on resuming prior metoprolol at some point in hospitalization. We will continue to follow while in the hospital. PAGE
[2016-09-03] MEDS: DOCUSATE SODIUM 100 MG CAP PO SCH ×3 (08:00→19:45)
[2016-09-03] MEDS: ASPIRIN 81 MG ECTAB PO SCH (08:00)
[2016-09-03] MEDS: MULTIVITAMIN TAB PO SCH (08:01)
[2016-09-03] MEDS: LISINOPRIL 5 MG TAB PO SCH (08:02)
[2016-09-03] MEDS: CHOLECALCIFEROL 1000 INTER.UNIT TAB PO SCH (08:02)
[2016-09-03] MEDS: PANTOprazole SOD 40 MG TAB PO SCH (08:03)
[2016-09-03] MEDS: CLOPIDOGREL BISULFATE 75 MG TAB PO SCH (08:04)
[2016-09-03] MEDS: CEROVITE ADV FORMULA TAB PO SCH ×2 (08:04→19:45)
[2016-09-03] MEDS: OMEGA-3 (PURIFIED FISH OIL) 1 GM CAP PO SCH (08:05)
[2016-09-03] MEDS: INSULIN ASPART 100 UNITS/ML 3 ML PEN SC SCH ×4 (08:14→20:20)
[2016-09-03 08:23] LABS: BASO % 0.5 %; BASO ABS # 0.03 K/uL (0-0.2); COMPLETE YES; EOS % 0.5 %; IG% 0.4 %; LYMPH ABS # 0.55 K/uL (1.2-3.4); MEAN CELL VOLUME 90.2 fL (80-100); MEAN CORPUSCULAR HEMOGLOBIN 31.2 pg (25-34); MEAN CORPUSCULAR HGB CONC 34.6 g/dl (32-36); MEAN PLATELET VOLUME 9.2 fL (7.4-10.4); MONO % 10.5 %; NEUT % 78.1 %; PLATELET COUNT 148 K/uL (130-400); RED BLOOD COUNT 3.88 M/uL (4.7-6.1); WHITE BLOOD COUNT 5.52 K/uL (4.8-10.8)
[2016-09-03 11:02] VITALS: BP 120/72; PULSE 90; TEMP 36.2; O2SAT 94
--- NOTE | 2016-09-03 12:55 | Progress Note ---
Subjective Date of Service: Sep 03, 2016. Subjective This patient has had no further bradycardia and in fact has some tachycardia related to holding his beta deanne. He said issues with sundowning and is slightly confused this morning. He is not really aware where he is nor who I am. He has some discomfort from his fall related to his back Problem List Medical Problems: (1) Dyspnea on exertion Status: Acute (2) Headache Status: Acute (3) Orthostatic hypotension Status: Acute (4) Right-sided chest pain Status: Acute Review of Systems Constitutional: + weakness, + fatigue, No fever, No chills Respiratory: No cough, No shortness of breath Cardiac: No chest pain, No edema Abdomen: No pain, No nausea, No diarrhea Musculoskeletal: + joint pain, + muscle pain Psychiatric: + problem reported (likely sundowning and dementia) Objective Vital Signs Date Time Temp Pulse Resp B/P (MAP) Pulse Ox O2 Delivery O2 Flow Rate FiO2 09/03/16 11:02 36.2 90 18 120/72 (88) 94 Room Air 09/03/16 08:00 Room Air 09/03/16 06:50 36.8 111 20 171/91 (117) 96 Room Air 09/03/16 04:27 Room Air 09/03/16 03:23 36.5 82 20 135/70 (91) 96 Room Air 09/03/16 00:18 Room Air 09/02/16 23:12 36.7 95 20 161/74 (103) 95 Room Air 09/02/16 20:04 Room Air 09/02/16 19:51 36.6 75 20 147/60 (89) 99 Room Air 09/02/16 16:15 Room Air 09/02/16 15:58 36.4 72 16 123/48 (73) 98 Room Air Physical Exam General Appearance: WD/WN, + mild distress Eyes: PERRL, EOMI Neck: supple, no JVD Respiratory/Chest: lungs clear, normal breath sounds Cardiovascular: + tachycardia, + systolic murmur Abdomen: normal bowel sounds, non tender, soft Neurologic/Psychiatric: alert, + disoriented Laboratory Results Last 24 Hours Test 09/02/16 16:43 09/02/16 20:07 09/03/16 07:31 09/03/16 08:05 Bedside Glucose 137 mg/dl 138 mg/dl 189 mg/dl White Blood Count 5.52 K/uL Red Blood Count 3.88 M/uL Hemoglobin 12.1 g/dL Hematocrit 35.0 % Mean Corpuscular Volume 90.2 fL Mean Corpuscular Hemoglobin 31.2 pg Mean Corpuscular Hemoglobin Concent 34.6 g/dl Platelet Count 148 K/uL Mean Platelet Volume 9.2 fL Neutrophils (%) (Auto) 78.1 % Lymphocytes (%) (Auto) 10.0 % Monocytes (%) (Auto) 10.5 % Eosinophils (%) (Auto) 0.5 % Basophils (%) (Auto) 0.5 % Neutrophils # (Auto) 4.31 K/uL Lymphocytes # (Auto) 0.55 K/uL Monocytes # (Auto) 0.58 K/uL Eosinophils # (Auto) 0.03 K/uL Basophils # (Auto) 0.03 K/uL RDW Standard Deviation 40.5 fL RDW Coefficient of Variation 12.3 % Immature Granulocyte % (Auto) 0.4 % Immature Granulocyte # (Auto) 0.02 K/uL Test 09/03/16 11:44 Bedside Glucose 229 mg/dl Assessment and Plan 86 M presented with encephalopathy found to have a hernandez sensitive klebsiella uti on presentation, ddeveloped some symptomatic bradycardia overnight 09/01-, he did have a fall, beta deanne held heart rate is rebounded cardiology did see recommends restarting beta deanne if able PMHx of CAD status post CABG x 1 CANDIE to ostial RCA December 2015, hypertension, hyperlipidemia, DM type II with peripheral neuropathy, CKD stage III, Sanjay's thyroiditis, GERD, BPH and prostatitis,cervical disk disease with associated headache, who presents to the emergency department after a 2 day period of confusion, weakness, and urinary symptoms. metabolic encephalopathy from klebsiella uti poa - IV Rocephin- started on 08/31- will move to po on discharge,one week course - CT of the head reviewed and is negative for any acute findings CAD s/p CABG with one CANDIE placed in ostial RCA/HTN- follows w/ Dr. Zhang: - Continue Plavix 75 mg daily, aspirin, Lisinopril 5 mg QAM, Lipitor 40 mg HS his We will start metoprolol tartrate 12.5 twice a day and if tolerated can convert back to his usual dose of XL 25 daily hoping that his bradycardia is only revolving around his acute illness , initially his confusion was thought to be metabolic encephalopathy from his urinary tract infection, this has been treated appropriately since his admission but he remains confused at times. Some of this may be from sleep deprivation we will try Seroquel overnight to see if these improve sleep and less confusion during the day. If his confusion remains a mask psychiatry to see him for help with medical management. He may also need PT OT eval CKD stage III, baseline Cr. 1.1- 1.2- STABLE: Follow PRP T2DM- ha1c=7.2%: glucose in good control here - Continue to Hold Actos and glyburide - Continue Lantus 16 units QPM - Insulin sliding scale with Accu-Cheks ACHS Hypothyroidism: Synthroid 175 mcg daily, tsh normal so as not to contribute to bradycardia Cervical disc disease: waxes and wains with pain does have some headache complaints - LEE workup as an outpt, unable to obtain MRI due to claustrophobia - Continue Tramadol and Tylenol for pain DVT Prophylaxis: Heparin Code Status: LEVEL I, FULL
[2016-09-03] MEDS: METOPROLOL TARTRATE 25 MG TAB PO SCH ×2 (13:18→19:45)
[2016-09-03 14:35] VITALS: BP 149/73; PULSE 67; TEMP 36.4; O2SAT 97
[2016-09-03] MEDS: TRAMADOL HCL 50 MG TAB PO PRN (15:54)
[2016-09-03 19:17] VITALS: BP 174/77; PULSE 91; TEMP 36.6; O2SAT 96
[2016-09-03] MEDS: ATORVASTATIN 40 MG TAB PO SCH (19:45)
[2016-09-03] MEDS: QUETIAPINE FUMARATE 25 MG TAB PO SCH (19:45)
[2016-09-03] MEDS: ACETAMINOPHEN 325 MG TAB PO PRN (20:19)
[2016-09-03] MEDS: INSULIN GLARGINE SOLOSTAR 100 UNITS/ML 3 ML PEN SC SCH (20:31)
[2016-09-03] MEDS: CEFTRIAXONE SOD INJ 1 GM in DEXTROSE 5% ADD-VANTAGE 50ML 50 ML IV SCH (21:36)
[2016-09-03 23:35] VITALS: BP 162/74; PULSE 97; TEMP 36.4; O2SAT 95
[2016-09-04] VITALS (7 sets, daily range): BP systolic 105–180; BP diastolic 55–88; PULSE 58–108; TEMP 36.4–36.9; O2SAT 94–97
[2016-09-04] MEDS: TRAMADOL HCL 50 MG TAB PO PRN ×2 (02:05→17:27)
[2016-09-04] MEDS: HEPARIN SOD 5000 UNIT/0.5 ML CARP SQ SCH ×3 (05:53→21:59)
[2016-09-04] MEDS: LEVOTHYROXINE 175 MCG TAB PO SCH (05:54)
[2016-09-04] MEDS: INSULIN ASPART 100 UNITS/ML 3 ML PEN SC SCH ×4 (06:30→20:36)
[2016-09-04] MEDS: DOCUSATE SODIUM 100 MG CAP PO SCH ×3 (08:21→20:26)
[2016-09-04] MEDS: ASPIRIN 81 MG ECTAB PO SCH (08:22)
[2016-09-04] MEDS: CLOPIDOGREL BISULFATE 75 MG TAB PO SCH (08:22)
[2016-09-04] MEDS: CHOLECALCIFEROL 1000 INTER.UNIT TAB PO SCH (08:22)
[2016-09-04] MEDS: PANTOprazole SOD 40 MG TAB PO SCH (08:23)
[2016-09-04] MEDS: MULTIVITAMIN TAB PO SCH (08:23)
[2016-09-04] MEDS: CEROVITE ADV FORMULA TAB PO SCH ×2 (08:23→20:28)
[2016-09-04] MEDS: OMEGA-3 (PURIFIED FISH OIL) 1 GM CAP PO SCH (08:23)
[2016-09-04] MEDS: LISINOPRIL 5 MG TAB PO SCH (08:24)
[2016-09-04] MEDS: METOPROLOL TARTRATE 25 MG TAB PO SCH (08:24)
[2016-09-04] MEDS ORDERED: METOPROLOL TARTRATE 25 MG TAB PO ONE (09:27)
[2016-09-04] MEDS: CEPHALEXIN MONOHYDRATE 500 MG CAP PO SCH ×2 (10:38→20:46)
[2016-09-04] MEDS ORDERED: QUETIAPINE FUMARATE 25 MG TAB PO ONE (15:30)
[2016-09-04] MEDS: ATORVASTATIN 40 MG TAB PO SCH (20:27)
[2016-09-04] MEDS: QUETIAPINE FUMARATE 25 MG TAB PO SCH (20:29)
[2016-09-04] MEDS: INSULIN GLARGINE SOLOSTAR 100 UNITS/ML 3 ML PEN SC SCH (20:34)
[2016-09-04] MEDS ORDERED: METOPROLOL TARTRATE 25 MG TAB PO SCH (21:00)
--- NOTE | 2016-09-04 21:15 | Progress Note ---
Subjective Date of Service: Sep 04, 2016. Subjective Pt evaluation today including: conversation w/ patient, physical exam, chart review, lab review, review of studies, review of inpatient medication list Pain: back - flanks PO Intake: fair per staff Voiding: incontinence pt could not tell me where he was, why he was here, or what day of the week (or year) overnight was agitated and combative despite use of seroquel at HS his only complaint was that of mild back pain but "I always have that" when asked about any recent fall he could not tell me denies h/o kidney stone no family at bedside Problem List Medical Problems: (1) Dyspnea on exertion Status: Acute (2) Headache Status: Acute (3) Orthostatic hypotension Status: Acute (4) Right-sided chest pain Status: Acute Review of Systems Constitutional: No fever Respiratory: No cough, No shortness of breath Cardiac: No chest pain Abdomen: No pain, No nausea, No vomiting, No diarrhea Objective Vital Signs Date Time Temp Pulse Resp B/P (MAP) Pulse Ox O2 Delivery O2 Flow Rate FiO2 09/04/16 20:45 58 105/72 (83) 09/04/16 19:10 36.4 72 18 105/55 (72) 95 Room Air 09/04/16 16:00 Room Air 09/04/16 15:30 36.5 80 18 153/81 (105) 95 Room Air 09/04/16 14:15 88 96 09/04/16 13:11 Room Air 09/04/16 13:02 36.9 78 18 159/88 (111) 94 Room Air 09/04/16 08:00 Room Air 09/04/16 07:26 36.4 108 18 158/70 (99) 95 Room Air 09/04/16 04:00 Room Air 09/04/16 04:00 36.7 90 20 159/74 (102) 97 Room Air 09/04/16 00:01 Room Air 09/03/16 23:35 36.4 97 20 162/74 (103) 95 Room Air Physical Exam General Appearance: no apparent distress, + pertinent finding (pleasantly confused) ENT: pharynx normal Neck: no JVD Respiratory/Chest: lungs clear, no respiratory distress, no accessory muscle use Cardiovascular: regular rate, rhythm, no gallop, no murmur Abdomen: normal bowel sounds, non tender, soft, no organomegaly, + pertinent finding (tender to palpation over left flank (near the ecchymoses); slightly tender over right flank) Extremities: no pedal edema Neurologic/Psychiatric: alert, + disoriented Skin: + pertinent finding (ecchymoses over left flank) Comments: back - slightly tender over lumbar spinal processes Laboratory Results Last 24 Hours Test 09/04/16 07:36 09/04/16 11:18 09/04/16 16:27 09/04/16 20:23 Bedside Glucose 139 mg/dl 134 mg/dl 161 mg/dl 166 mg/dl Assessment and Plan 86yo male with: 1. klebsiella UTI - afebrile, VSS, wbc count normal. Has received 4 days of IV rocephin. d/c such, change to po keflex. Will need NASRIN to exclude prostatitis. Plan for CT abd/pelvis to exclude complicating renal stone but this is unlikely. 2. metabolic encephalopathy - thought 2nd to #1, but he is now nearly 5 days into his hospital stay and he continues with delirium. CT head at admission negative. TSH normal. VSS with stable CBC. Hospital psychosis in setting of an undiagnosed mild cognitive impairment or dementia? Other? Check B12 in am. Avoid sedating meds. Try to maintain sleep/wake cycle. May need daytime seroquel if he has significant agitation. 3. back pain - possibly due to recent fall. With his flank pain will check for renal stone. May need l-spine x-rays as well. Treat pain as needed. 4. CAD with h/o CABG - noted; no ischemic symptoms at this time. 5. T2DM - acceptable control. 6. CKD stage 3 - most recent creatinine was stable. Recheck BMP am. 7. hypothyroidism - TSH this admission was normal. Cont current synthroid dose. 8. h/o BPH with prostatitis - NASRIN needed to exclude active prostatitis. 9. c-spine DJD - by history - noted. No complaints today during the visit. 10. DVT proph - heparin TID. PT, OT evals slow progress due to the delirium update family when able Continued [facility] stay due to: other (altered mental status) Discharge planning: uncertain
[2016-09-05] VITALS (8 sets, daily range): BP systolic 128–166; BP diastolic 59–105; PULSE 65–101; TEMP 36.1–37.1; O2SAT 92–96
[2016-09-05] MEDS: HEPARIN SOD 5000 UNIT/0.5 ML CARP SQ SCH ×3 (05:51→21:22)
[2016-09-05] MEDS: LEVOTHYROXINE 175 MCG TAB PO SCH (05:57)
[2016-09-05 06:47] LABS: BUN/CREATININE RATIO 19.5 (10-20); CALCIUM 9.1 mg/dl (8.5-10.1); CREATININE 1.2 mg/dl (0.60-1.40)
[2016-09-05] MEDS: CLOPIDOGREL BISULFATE 75 MG TAB PO SCH (07:54)
[2016-09-05] MEDS: DOCUSATE SODIUM 100 MG CAP PO SCH ×4 (07:54→21:24)
[2016-09-05] MEDS: OMEGA-3 (PURIFIED FISH OIL) 1 GM CAP PO SCH (07:54)
[2016-09-05] MEDS: CEPHALEXIN MONOHYDRATE 500 MG CAP PO SCH ×2 (07:54→21:07)
[2016-09-05] MEDS: CHOLECALCIFEROL 1000 INTER.UNIT TAB PO SCH (07:55)
[2016-09-05] MEDS: ASPIRIN 81 MG ECTAB PO SCH (07:55)
[2016-09-05] MEDS: MULTIVITAMIN TAB PO SCH (07:55)
[2016-09-05] MEDS: CEROVITE ADV FORMULA TAB PO SCH ×2 (07:55→21:08)
[2016-09-05] MEDS: METOPROLOL TARTRATE 25 MG TAB PO SCH ×2 (07:55→21:08)
[2016-09-05] MEDS: PANTOprazole SOD 40 MG TAB PO SCH (07:55)
[2016-09-05] MEDS: LISINOPRIL 5 MG TAB PO SCH (07:55)
[2016-09-05] MEDS: INSULIN ASPART 100 UNITS/ML 3 ML PEN SC SCH ×4 (08:02→21:14)
--- NOTE | 2016-09-05 15:02 | DIAGNOSTIC IMAGING REPORT ---
ADDENDUM Upon further review of the case, there is an acute nondisplaced fracture of the left 12th rib. Electronically signed by: Jacob Hernandez M.D. 09/06/2016 2:18 PM Dictated Date/Time: 09/06/2016 2:17 PM ORIGINAL REPORT ABD/PELVIS WITHOUT FOR STONE HISTORY: 86 years-old Male eval for stone COMPARISON: CT abdomen 06/06/2007 TECHNIQUE: Multiple axial CT images of the abdomen and pelvis were obtained without IV contrast. A dose lowering technique was used consistent with the principals of [facility]. FINDINGS: There is mild bibasilar atelectasis. No pneumoperitoneum. There is a small pericardial effusion. Coronary arterial calcifications are partially imaged. Prior cholecystectomy. Low attenuating lesion of the anterior right hepatic lobe in a subserosal location is seen, 1.5 x 0.7 cm, unchanged from comparison and is again nonspecific. Similar appearing lesion is noted within the more medial aspect of the anterior right hepatic lobe, 1.2 cm. This may reflect a hepatic cyst. The spleen and adrenal glands are within normal limits. There is severe pancreatic atrophy. Nonspecific moderate perinephric stranding is present bilaterally. There is no renal calculi or hydronephrosis. There is moderate circumferential wall thickening of a partially collapsed urinary bladder lumen with mild surrounding stranding. Prostate is not significantly enlarged. There is moderate atherosclerotic plaquing of the abdominal aorta. No pathologically enlarged adenopathy. There is moderate circumferential wall thickening of the distal esophagus just proximal to the diaphragmatic hiatus. There is no bowel obstruction. Scattered noninflamed colonic diverticula are present. There is moderate volume of formed stool throughout the colon which may reflect underlying constipation. The appendix is not definitely seen, no secondary evidence of acute appendicitis. Subcutaneous emphysema along the anterior lower left abdominal wall suggests injection site. The bones are moderately demineralized. Multilevel discogenic degeneration facet arthropathy is seen. IMPRESSION: 1. Moderate wall thickening of the urinary bladder with surrounding inflammatory stranding suggests underlying cystitis. Correlate with urinalysis. 2. No renal calculi or hydronephrosis. 3. Colonic diverticulosis without diverticulitis. 4. Moderate circumferential wall thickening of the distal esophagus is nonspecific and may reflect esophagitis in the appropriate clinical setting. This could be correlated with endoscopy. 5. Prior cholecystectomy. The above report was generated using voice recognition software. It may contain grammatical, syntax or spelling errors. Electronically signed by: Jacob Hernandez M.D. 09/05/2016 3:01 PM Dictated Date/Time: 09/05/2016 2:52 PM
[2016-09-05] MEDS: ATORVASTATIN 40 MG TAB PO SCH (21:07)
[2016-09-05] MEDS: QUETIAPINE FUMARATE 25 MG TAB PO SCH (21:09)
[2016-09-05] MEDS: INSULIN GLARGINE SOLOSTAR 100 UNITS/ML 3 ML PEN SC SCH (21:09)
--- NOTE | 2016-09-05 21:24 | Progress Note ---
Subjective Date of Service: Sep 05, 2016. Subjective Pt evaluation today including: conversation w/ patient, conversation w/ family (, daughter), physical exam, chart review, lab review, review of studies ( CT abd/pelvis), review of inpatient medication list Pain: lumbar spine, suprapubic pain, left sided flank pain PO Intake: improved Voiding: no voiding problems patient "feeling better" today tele with 5-beat run of nonsustained v-tach but otherwise no a. fib slept better overnight and this am is awake, alert, and oriented c/o "blurry vision" confirms this has been a problem for several months was actually supposed to see his eye physician just before this admission /daughter confirm he has had memory trouble for about 6 months patient himself has noted the same thing as well Problem List Medical Problems: (1) Dyspnea on exertion Status: Acute (2) Headache Status: Acute (3) Orthostatic hypotension Status: Acute (4) Right-sided chest pain Status: Acute Review of Systems Constitutional: No fever Respiratory: No cough, No shortness of breath Cardiac: No chest pain Abdomen: + see HPI, + pain, + constipation, No nausea, No vomiting Objective Vital Signs Date Time Temp Pulse Resp B/P (MAP) Pulse Ox O2 Delivery O2 Flow Rate FiO2 09/05/16 21:06 80 145/70 (95) 09/05/16 19:45 36.6 93 20 154/75 (101) 92 Room Air 09/05/16 16:00 Room Air 09/05/16 15:14 36.1 66 20 130/59 (82) 96 Room Air 09/05/16 12:25 Room Air 09/05/16 11:30 65 143/72 (95) 09/05/16 11:09 36.4 72 18 149/105 (120) 96 Room Air 09/05/16 08:00 Room Air 09/05/16 06:58 36.5 98 18 128/75 (92) 96 Room Air 09/05/16 04:00 36.6 101 18 137/80 (99) 95 Room Air 09/05/16 04:00 Room Air 09/05/16 00:24 37.1 82 20 166/72 (103) 95 Room Air 09/05/16 00:00 Room Air Physical Exam General Appearance: no apparent distress ENT: pharynx normal Neck: no JVD Respiratory/Chest: lungs clear, no respiratory distress, no accessory muscle use Cardiovascular: regular rate, rhythm, no gallop, no murmur Abdomen: normal bowel sounds, soft, no organomegaly, + tenderness (suprapubic and left flank) Extremities: no pedal edema Neurologic/Psychiatric: alert, oriented x 3 Skin: + pertinent finding (resolving ecchymoses left flank ) Laboratory Results Last 24 Hours Test 09/05/16 05:26 09/05/16 07:21 09/05/16 11:31 09/05/16 16:08 Sodium Level 141 mmol/L Potassium Level 4.0 mmol/L Chloride Level 105 mmol/L Carbon Dioxide Level 30 mmol/L Anion Gap 6.0 mmol/L Blood Urea Nitrogen 23 mg/dl Creatinine 1.20 mg/dl Est Creatinine Clear Calc Drug Dose 45.6 ml/min Estimated GFR () 63.1 Estimated GFR (Non- 54.4 BUN/Creatinine Ratio 19.5 Random Glucose 107 mg/dl Calcium Level 9.1 mg/dl Magnesium Level 2.0 mg/dl Vitamin B12 Level 871 pg/mL Bedside Glucose 130 mg/dl 173 mg/dl 76 mg/dl Test 09/05/16 20:29 Bedside Glucose 176 mg/dl Assessment and Plan 86yo male with: 1. sepsis 2nd to klebsiella UTI - resolving. day #6 of abx. plan for NASRIN tomorrow to r/o prostatitis. if + for such then 2-4 weeks of abx if neg for such then 10 days in total of Rx. CT abd/pelvis negative for complicating renal stone. 2. metabolic encephalopathy - resolved. 2nd to #1. suspect he has mild cognitive impairment at baseline in light of 's history of memory troubles. 3. back pain - 2nd to recent fall as well as DJD of L-spine. No compression fracture seen on CT today. Heating pad, pain meds prn. 4. CAD with h/o CABG - cont asa, plavix, BB, MALLORY. no ischemic symptoms incidental finding of NSVT on monitoring but likely unrelated continue telemetry 5. T2DM - acceptable control. 6. CKD stage 3 - stable 7. hypothyroidism - TSH this admission was normal. Cont current synthroid dose. 8. h/o BPH with prostatitis - NASRIN needed to exclude active prostatitis. 9. c-spine DJD - by history - noted. No complaints today during the visit. 10. DVT proph - heparin TID. 11. visual impairment - needs ophtho f/u after admission 12. mild cognitive impairment - needs neuro or psych f/u after admission 13. constipation - bowel regimen PT, OT evals appreciated; OT felt patient could return home; PT felt he might need rehab but he ambulated 300 feet will re-eval tomorrow family extensively updated today pending repeat PT/OT evals tomorrow hopefully home then Continued [facility] stay due to: ambulation difficulties Discharge planning: uncertain
[2016-09-05] MEDS: POLYETHYLENE (MIRALAX) 17 GM PACK PO SCH (21:29)
[2016-09-06 00:15] VITALS: BP 158/85; PULSE 93; TEMP 36.4; O2SAT 96
[2016-09-06 04:05] VITALS: BP 131/68; PULSE 89; TEMP 36.4; O2SAT 95
[2016-09-06] MEDS: LEVOTHYROXINE 175 MCG TAB PO SCH (06:02)
[2016-09-06] MEDS: HEPARIN SOD 5000 UNIT/0.5 ML CARP SQ SCH ×2 (06:02→12:21)
[2016-09-06 06:11] LABS: CALCIUM 8.7 mg/dl (8.5-10.1); CREATININE 1.2 mg/dl (0.60-1.40); POTASSIUM 4.2 mmol/L (3.5-5.1)
[2016-09-06 07:00] VITALS: BP 154/84; PULSE 90; TEMP 36.2; O2SAT 97
[2016-09-06] MEDS ORDERED: COUGH DROP (SUGAR FREE) LOZ 24 LOZ/1 BOX ONE (07:52)
[2016-09-06] MEDS: INSULIN ASPART 100 UNITS/ML 3 ML PEN SC SCH ×2 (07:54→12:20)
[2016-09-06] MEDS: PANTOprazole SOD 40 MG TAB PO SCH (07:55)
[2016-09-06] MEDS: OMEGA-3 (PURIFIED FISH OIL) 1 GM CAP PO SCH (07:55)
[2016-09-06] MEDS: METOPROLOL TARTRATE 25 MG TAB PO SCH (07:55)
[2016-09-06] MEDS: CHOLECALCIFEROL 1000 INTER.UNIT TAB PO SCH (07:55)
[2016-09-06] MEDS: ASPIRIN 81 MG ECTAB PO SCH (07:55)
[2016-09-06] MEDS: CEROVITE ADV FORMULA TAB PO SCH (07:55)
[2016-09-06] MEDS: DOCUSATE SODIUM 100 MG CAP PO SCH ×2 (07:55→07:57)
[2016-09-06] MEDS: CLOPIDOGREL BISULFATE 75 MG TAB PO SCH (07:55)
[2016-09-06] MEDS: LISINOPRIL 5 MG TAB PO SCH (07:56)
[2016-09-06] MEDS: MULTIVITAMIN TAB PO SCH (07:56)
[2016-09-06] MEDS: POLYETHYLENE (MIRALAX) 17 GM PACK PO SCH (07:56)
[2016-09-06] MEDS: CEPHALEXIN MONOHYDRATE 500 MG CAP PO SCH (07:56)
[2016-09-06 10:59] VITALS: BP 127/64; PULSE 78; O2SAT 96
[2016-09-06 11:29] VITALS: BP 121/61; PULSE 74; TEMP 36.4; O2SAT 97
[2016-09-06 13:36] VITALS: BP 121/61; PULSE 74; TEMP 36.4; O2SAT 97
[2016-09-06] MEDS ORDERED: TRAM-10 PO (14:28)
[2016-09-06] MEDS ORDERED: KFL500 PO (14:28)
[2016-09-06] MEDS ORDERED: OMEP40CA41 PO (14:28)
[2016-09-06] MEDS ORDERED: MRLP17 PO (14:28)
--- NOTE | 2016-09-06 14:43 | Discharge Instructions ---
Discharge Instructions Date of Service Sep 06, 2016. Admission Reason for Admission: Delirium/Confusion, Urinary Tract Infection Discharge Discharge Diagnosis / Problem: Confusion, Urinary tract infection - resolved. 12th Rib Fracture on Left. Discharge Goals Goal(s): Learn about illness, Diagnostic testing, Therapeutic intervention Activity Recommendations Activity Limitations: resume your previous activity Please use your walker when ambulating around your house. . Instructions / Follow-Up Instructions / Follow-Up From Dr. Lennon - 1. Urinary tract infection - * please take keflex (cephalexin) for 5 more days starting TONIGHT * your prostate exam did NOT show evidence of prostate infection (you have an enlarged prostate as many men do in their 80s) * when you see Dr. Busch's office please have them repeat a urine culture to ensure the infection is completely gone 2. Left 12th rib fracture - * you have a bruise on your lower back towards the left side - this is where your rib fracture is * there is nothing specific to do for the broken rib * it will heal over 4-6 weeks * you may take [id number] tylenol and ultram (tramadol) as needed for pain * heating pad will be helpful as well * avoid any activity that makes the pain worse 3. Confusion - * this was due to your urinary tract infection 4. Memory loss - * please discuss this with Dr. Busch and he may refer you to a specialist for it 5. Abnormal esophagus ("Foodpipe") on the CAT scan - * the inflammation seen could be nothing or could be real * please increase your omeprazole from 20mg to 40mg once daily; new prescription provided * please speak with Dr. Busch about a referral to GI (gastroenterology) 6. Diabetes - * during your hospital stay you did NOT need your glyburide or actos * your blood sugars were under good control with your lantus and the short- acting insulin novolog alone * I would STOP the glyburide and actos for now; Dr. Busch's office may elect to restart these if necessary in the future * just continue your lantus and novolog as previous 7. Follow-up - * see Dr. Busch's office on Sunday of this coming week as scheduled 8. Return to [facility] if - * you develop confusion or agitation that was similar to when you came to the hospital last weekend * fever over 100.5 degrees * pain not relieved by tylenol and/or tramadol * concern of recurrent urinary infection * chest pain or shortness of breath Current Hospital Diet Patient's current hospital diet: AHA Diet (Heart Healthy), Diabetes Type 2 Diet Discharge Diet Recommended Diet: AHA Diet (Heart Healthy), Diabetes Type 2 Diet Procedures Procedures Performed: CAT scan of the abdomen and pelvis showing - 1. NO kidney stones. 2. 12th rib fracture on the LEFT. 3. Large amount of stool. 4. Inflammation of the last part of the esophagus. Pending Studies Studies pending at discharge: no Laboratory Results Hemoglobin A1c Test 09/01/16 05:39 Range/Units Estimated Average Glucose 160 mg/dl Hemoglobin A1c 7.2 H 4.5-5.6 % Medical Emergencies . Who to Call and When: Medical Emergencies: If at any time you feel your situation is an emergency, please call 911 immediately. . Non-Emergent Contact Non-Emergency issues call your: Primary Care Provider Call Non-Emergent contact if: temperature is above 100.5, your pain is not controlled, your pain is worsening, your pain is unusual for you, your pain is concerning you, you have any medication questions . . "Provider Documentation" section prepared by Heron Lennon. . VTE Core Measure Inpt VTE Proph given/why not?: Unfractionated heparin SQ, T.E.D. Stockings, SCD 's
--- NOTE | 2016-09-07 21:53 | Discharge Summary ---
Discharge Summary Date of Service Sep 07, 2016. Discharge Summary Admission Date: Aug 31, 2016 at 20:28 Discharge Date: Sep 06, 2016 Discharge Disposition: Home with services Principal Diagnosis: sepsis 2nd to klebsiella UTI Problems/Secondary Diagnoses: 1. metabolic encephalopathy - resolved 2. suspected mild cognitive impairment vs early dementia 3. fall with resulting left 12th rib fracture 4. CAD s/p RCA stent 2015 5. T2DM 6. Hypothyroidism 7. HTN 8. constipation 9. CKD stage 3 10. h/o macular degeneration 11. abnormal appearing esophagus on CT abdomen Procedures: 1. CT abd/pelvis - IMPRESSION: 1. Moderate wall thickening of the urinary bladder with surrounding inflammatory stranding suggests underlying cystitis. Correlate with urinalysis. 2. No renal calculi or hydronephrosis. 3. Colonic diverticulosis without diverticulitis. 4. Moderate circumferential wall thickening of the distal esophagus is nonspecific and may reflect esophagitis in the appropriate clinical setting. This could be correlated with endoscopy. 5. Prior cholecystectomy. 6. Nondisplaced left 12th rib fracture 2. CT head - negative for stroke, ICH, etc. Consultations: cardiology - Aron Zhang MD PT, OT Medication Reconciliation New Medications: Cephalexin Monohydrate (Cephalexin) 500 Mg Cap 500 MG PO BID for 5 Days, #10 CAP 0 Refills start evening of 09/06/16 Polyethylene (Miralax) 17 Gm Pow 17 GM PO DAILY, #1 BTL 2 Refills Changed Medications: Omeprazole (Prilosec) 40 Mg Cap 1 CAP PO QAM for 30 Days, #30 CAP 5 Refills (Changed from: Omeprazole (Prilosec ) 20 Mg Capcr 20 Mg PO DAILY) note that your dose has been increased Continued Medications: Aspirin (Aspirin Ec) 81 Mg Tab 81 MG PO DAILY Atorvastatin (Lipitor) 40 Mg Tab 40 MG PO HS, TAB Cholecalciferol (Vitamin D3) 1,000 Unit Tab 1 TAB PO DAILY for 90 Days, #90 TAB 3 Refills Clopidogrel (Plavix) 75 Mg Tab 75 MG PO DAILY, TAB Docusate Sodium (Colace) 100 Mg Cap 1 CAP PO TID for 30 Days, #90 CAP Fish Oil (Madison-3) 1 Ea Cap 1 CAP PO DAILY, CAP Insulin Aspart (Novolog Flexpen) 100 Units/Ml Inj 1 DOSE SQ UD PER SLIDING SCALE Insulin Glargine (Lantus) 100 Unit/Ml Inj 16 UNITS SC QPM, VIAL Levothyroxine Sodium (Synthroid) 175 Mcg Tab 175 MCG PO DAILY, TAB Lisinopril (Zestril) 5 Mg Tab 5 MG PO DAILY, TAB Lorazepam (Ativan) 0.5 Mg Tab 0.5 MG PO UD, TAB Metoprolol Succ (Toprol Xl) (Toprol-Xl) 25 Mg Tabcr 25 MG PO DAILY, #30 TAB Multiple Vitamins W/ Minerals (Centrum Silver) 1 Chw Chw 1 TAB PO DAILY Nitroglycerin (Nitrostat) 0.4 Mg Tab 0.4 MG UT PRN, BTL Ocuvite Preservision (Ocuvite Preservision) 1 Tab Tab 1 TAB PO BID, TAB Tramadol (Ultram) 50 Mg Tab 50 MG PO Q6 PRN for Pain, #30 TAB 0 Refills (This prescription has been renewed) Discontinued Medications: Glyburide (Micronase) 5 Mg Tab 5 MG PO BID, TAB Pioglitazone (Actos) 30 Mg Tab 45 MG PO DAILY for 90 Days, #135 TAB 3 Refills Discharge Exam Physical Exam: General Appearance: no apparent distress ENT: pharynx normal Neck: no JVD Respiratory/Chest: lungs clear, no respiratory distress, no accessory muscle use Cardiovascular: regular rate, rhythm, no gallop, no murmur, normal peripheral pulses Abdomen / GI: normal bowel sounds, non tender, soft, no organomegaly, + pertinent finding (prostate - enlarged, left lobe larger than right lobe; not boggy, not tender, no nodules) Extremities: no pedal edema Neurologic/Psychiatric: alert Skin: + pertinent finding (ecchymoses over left lower back near the 12th rib ; tender in this location ) Hospital Course HISTORY OF PRESENT ILLNESS: This is a pleasant 86yo male with PMHx of CAD with prior stent, hypertension, hyperlipidemia, DM type II with peripheral neuropathy, CKD stage III, Sanjay' s thyroiditis, GERD, BPH and prior prostatitis, cervical disk disease with associated headache, who presented to the emergency department after a 2 day period of confusion, weakness, and urinary symptoms. The patient's was present with him at bedside. The patient's reported that he had had 3 days of intermittent confusion and altered mental status. noted that on the day of admission he appeared to be so confused that he had some slurring of speech. At one point he was sitting in his chair and was unable to stand up, whereas typically he is a very active person. The patient specifically noted that he had had increased urinary frequency 4 days, burning with urination, darkened urine and incontinence. He had not experienced these types of symptoms before. There was a report of low-grade temperature upon EMS arrival. He reported his oral intake of food and liquids had been the same in comparison to normal. He also complained of a headache that lasted approximately 2 days but was improved by the time of admission. He had been taking tramadol for this. On review of outpatient records the patient had been seen by PCP for headache complaints and it was thought that this was due to cervical disc disease. HOSPITAL COURSE: 1. sepsis 2nd to klebsiella UTI - the patient received 4 days of IV rocephin and was transitioned to oral keflex thereafter. He will complete 10 days in total of IV/PO antibiotics. Blood cultures were negative. NASRIN did not show evidence of prostatitis. CT abd/pelvis did not show evidence of complicating renal stone. His severe encephalopathy gradually improved with treatment of the UTI. He remained hemodynamically stable his entire stay. 2. metabolic encephalopathy - resolved with supportive care measures and use of seroquel. . This was 2nd to #1 above. After speaking with his and daughter it appears that the patient has had 6- 12 months of gradual memory loss and cognitive impairment. I recommended he speak with his PCP about testing for mild cognitive impairment vs early dementia. 3. back pain - the patient suffered a fall while hospitalized resulting in a bruise to the left flank region as well as a nondisplaced left 12th rib fracture. No lumbar compression fractures were identified. He will use tylenol, prn tramadol, and heating pad at home. He was cleared for discharge home with his by PT/OT; however, home PT/OT have been ordered. 4. T2DM - the patient had very acceptable control with use of lantus/novolog alone. He did not receive his glyburide or actos while hospitalized. He will trial off his oral agents at home and use the lantus/novolog only. He will follow-up with his PCP for his T2DM. 5. visual impairment - the patient complained of blurry vision in both eyes, worse on the left, intermittently during his stay. He has a known h/o macular degeneration. He will follow-up with his eye physician following discharge. 6. CAD - he was seen by Dr. Aron Zhang, his primary tractor crane engineer, during this stay. The patient had transient bradycardia while hospitalized as well as several runs of nonsustained v-tach. He was resumed on his normal dose of beta deanne and prior to discharge his HRs were acceptable. 7. abnormal CT finding of the esophagus - incidentally on CT abd/pelvis there appeared to be esophageal wall thickening of the distal segment. The patient denied any esophageal symptoms while here. With that said I recommended we increase his prilosec to 40mg once daily and to consider GI consultation for consideration of EGD, if desired by the patient. All other medical problems remained stable while hospitalized. Total Time Spent: Greater than 30 minutes This includes examination of the patient, discharge planning, medication reconciliation, and communication with other providers. Discharge Instructions Please refer to the electronic Patient Visit Report (Discharge Instructions) for additional information. Follow-Up LELO Vilchis, on SundaySeptember 12 at 3:30pm Additional Copies To Aron Busch M.D.; Francia Gupta P.A.
== END 2016-09-06 15:10 | disposition home health service (06) | DRG 871 ==
LOC: EDBD 17:50 → C.EDC 17:52 → C.4E 20:28 → ENRESERV 20:39 → C.MED 09-02 11:44
PROVIDERS: ADMIT Internal Medicine; ATTEND Internal Medicine
DX: A41.59 Other Gram-negative sepsis (principal); G93.41 Metabolic encephalopathy; N39.0 Urinary tract infection, site not specified; R51 Headache; K21.9 Gastro-esophageal reflux disease without esophagitis; I25.10 Atherosclerotic heart disease of native coronary artery without angina pectoris; E11.43 Type 2 diabetes mellitus with diabetic autonomic (poly)neuropathy; Z79.82 Long term (current) use of aspirin; I95.1 Orthostatic hypotension; E83.42 Hypomagnesemia; Z95.1 Presence of aortocoronary bypass graft; I12.9 Hypertensive chronic kidney disease with stage 1 through stage 4 chronic kidney disease, or unspecified chronic kidney disease; E78.5 Hyperlipidemia, unspecified; N18.3 Chronic kidney disease, stage 3 (moderate); N40.0 Benign prostatic hyperplasia without lower urinary tract symptoms; F03.90 Unspecified dementia, unspecified severity, without behavioral disturbance, psychotic disturbance, mood disturbance, and anxiety; G31.84 Mild cognitive impairment of uncertain or unknown etiology; E03.9 Hypothyroidism, unspecified; H35.30 Unspecified macular degeneration; R00.1 Bradycardia, unspecified; K59.00 Constipation, unspecified

== ENCOUNTER → 2016-09-20 | Outpatient (CLI) | payer OTHER ==
[~2016-09-20] MED LIST changes: -ACT15 PO; -ASPEC81 PO; +ASPI81TA28 PO; +CHOL1000 PO; -GLYB5TAB8 PO; +KFL500 PO; -LEVO100T PO; +LEVO175T PO; +LORA-741 PO; +METO25TA3 PO; -METO50TA16 PO; +MRLP17 PO; +MULT-190 PO; +MULTCHW PO; +NTRGSL/4 UT; +OMEG10007 PO; +OMEP40CA41 PO; +TRAM-10 PO
[2016-09-20 13:25] LABS: URINE APPEARANCE CLEAR (CLEAR); URINE BILIRUBIN NEG (NEG); URINE COLOR YELLOW; URINE NITRITE NEG (NEG); URINE SPECIFIC GRAVITY 1.014 (1.000-1.030); UROBILINOGEN NEG (NEG)
[2016-09-20 13:38] LABS: MANUAL MICROSCOPIC REQUIRED? NO; REVIEW REQ? NO
== END | disposition home or self-care (01) ==
LOC: C.LABBFT 10:47
PROVIDERS: ATTEND Internal Medicine
DX: N39.0 Urinary tract infection, site not specified (principal)

== ENCOUNTER → 2016-09-26 | Outpatient (CLI) | payer OTHER ==
[2016-09-26 12:39] LABS: BLOOD UREA NITROGEN 19 mg/dl (7-18)
[2016-09-26 13:33] LABS: LYME DISEASE AB IGM NEG (NEG)
[2016-09-26 13:36] LABS: LYME DISEASE AB IGG NEG (NEG)
== END | disposition home or self-care (01) ==
LOC: C.LABBFT 09:32
PROVIDERS: ATTEND Physician Assistant Medical
DX: E11.8 Type 2 diabetes mellitus with unspecified complications (principal); R51 Headache

== ENCOUNTER → 2016-09-28 | Day surgery (SDC) | payer OTHER ==
[2016-09-26 12:58] VITALS: BMI 26.0
[~2016-09-28] VITALS: Ht 175.3 cm; Wt 80.0 kg
[~2016-09-28] MED LIST changes: +ATROPINE SULFATE 0.1 MG/ML 5ML SYR IV PRN; +EpHEDrine SULFATE INJ 50 MG/ML AMP IV PRN; +FENTANYL CITRATE INJ 50 MCG/1 ML 2 ML VIAL ONE; +GADAVIST IV PRN; -KFL500 PO; +LACTATED RINGER'S 1000ML 1,000 ML IV SCH; +MIDAZOLAM HCL 1 MG/ML 2ML VIAL ONE; -MRLP17 PO; -OMEP40CA41 PO; +PROPOFOL IV EMULSION 10 MG/ML 20 ML VIAL IV ONE; -TRAM-10 PO
[2016-09-28 08:19] VITALS: BP 183/77; PULSE 65; TEMP 36.5; O2SAT 96; Ht 175.3 cm; Wt 80.0 kg
[2016-09-28 11:10] VITALS: BP 111/65; PULSE 66; TEMP 36.5; O2SAT 98
[2016-09-28 11:42] VITALS: BP 125/62; PULSE 66; TEMP 36.5; O2SAT 97
--- NOTE | 2016-09-28 11:42 | DIAGNOSTIC IMAGING REPORT ---
MRI OF THE BRAIN WITHOUT AND WITH IV CONTRAST CLINICAL HISTORY: Headaches, memory loss, neck pain. COMPARISON STUDY: Noncontrast head CT dated 08/31/2016 TECHNIQUE: MRI of the brain was performed from the vertex to the skull base utilizing various T1 and T2 weighted sequences. Following the IV administration of 8 mL of Gadavist contrast, additional enhanced images were obtained. FINDINGS: Sagittal T1, axial diffusion, proton density and T2 weighted axial, coronal FLAIR, and pre and post axial T1-weighted images were acquired. These were supplemented with post gadolinium coronal T1 weighted images. No intra or extra-axial mass lesions are visualized. There is a 4 mm focus of increased signal on the diffusion-weighted imaging study within the subcortical right anterior parietal white matter. Although there is no definite correlate on the ADC map, this likely represents a tiny focus of acute/subacute infarction. There is no evidence of ventricular dilatation. Proton density T2-weighted and FLAIR images reveal minimal foci of increased T2 signal within the white matter, likely on a small vessel basis. There are no abnormal flow voids. There is no evidence of pathologic enhancement. There is mild nonspecific decreased T1 signal within the odontoid IMPRESSION: 1. Small 4 mm focus of restricted water diffusion within the right anterior parietal lobe, likely representing a tiny focus of acute/subacute infarction 2. No evidence of intracranial mass. Electronically signed by: Praful Salvador M.D. 09/28/2016 11:41 AM Dictated Date/Time: 09/28/2016 11:35 AM
--- NOTE | 2016-09-28 11:45 | DIAGNOSTIC IMAGING REPORT ---
CERVICAL SPINE COMBO HISTORY: Pain. Neuropathy. HEADACHE, NECK PAIN TECHNIQUE: Multiplanar multisequence MRI of the cervical spine was performed both before and after the use of intravenous contrast. COMPARISON STUDY: Routine cervical spine series 04/15/2016 FINDINGS: Limited study given patient motion despite anesthesia assistance. No evidence for bone marrow replacing process. 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 Unremarkable signal characteristics of the cervical cord based on the sagittal images. C2-C3: Minimal left central disc bulge. No significant impact with cervical cord. C3-C4: Moderate osteophytic narrowing of the neuroforamina bilaterally. C4-C5: Moderate osteophytic narrowing of the neuroforamina bilaterally. C5-C6: Mild broad-based posterior osteophytic complex with minimal impact upon the anterior cervical cord. C6-C7: Mild broad-based disc herniation with posterior osteophytic complex. Mild impact right anterior aspect cervical cord read osteophytic narrowing of the neuroforamina bilaterally. Mild multifactorial narrowing of the spinal canal. C7-T1: No significant central canal or neural foraminal narrowing. IMPRESSION: 1. Limited exam due to patient motion. 2. 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 3. Osteophytic narrowing of the bulk of the neuroforamina bilaterally as discussed above. 4. Mild multifactorial narrowing of spinal canal C6-C7 with slight disc bulges at all additional levels. 5. No evidence for a major compromise of the spinal canal within limitations of the motion artifact discussed above. 5. No evidence for abnormal postcontrast enhancement. The above report was generated using voice recognition software. It may contain grammatical, syntax or spelling errors. Electronically signed by: Brendan Elena M.D. 09/28/2016 11:44 AM Dictated Date/Time: 09/28/2016 11:39 AM
--- NOTE | 2016-09-28 12:02 | Anesthesiology Progress Note ---
Anesthesia Post Op Note Date & Time Sep 28, 2016 at 12:01 Vital Signs Pain Intensity: 0 Vital Signs Past 12 Hours Date Time Temp Pulse Resp B/P (MAP) Pulse Ox O2 Delivery O2 Flow Rate FiO2 09/28/16 11:42 36.5 66 18 125/62 97 Room Air 09/28/16 11:10 36.5 66 18 111/65 98 Room Air 09/28/16 08:19 36.5 65 20 183/77 (112) 96 Room Air Notes Mental Status: alert / awake / arousable, participated in evaluation Pt Amnestic to Procedure: Yes Nausea / Vomiting: adequately controlled Pain: adequately controlled Airway Patency, RR, SpO2: stable & adequate BP & HR: stable & adequate Hydration State: stable & adequate Anesthetic Complications: no major complications apparent
[2016-09-28 12:04] VITALS: BP 146/48; PULSE 62; TEMP 36.5; O2SAT 99
== END | disposition home or self-care (01) ==
LOC: C.ACU 07:58
PROVIDERS: ATTEND Physician Assistant Medical
DX: G93.89 Other specified disorders of brain (principal); Q76.49 Other congenital malformations of spine, not associated with scoliosis; M48.02 Spinal stenosis, cervical region; E11.9 Type 2 diabetes mellitus without complications; Z79.4 Long term (current) use of insulin

== ENCOUNTER → 2016-10-04 | Day surgery (SDC) | payer OTHER ==
[2016-09-26 13:17] VITALS: Ht 175.3 cm; Wt 81.5 kg
[~2016-10-04] VITALS: Ht 175.3 cm; Wt 81.5 kg
[~2016-10-04] MED LIST changes: -ATROPINE SULFATE 0.1 MG/ML 5ML SYR IV PRN; -EpHEDrine SULFATE INJ 50 MG/ML AMP IV PRN; -FENTANYL CITRATE INJ 50 MCG/1 ML 2 ML VIAL ONE; -GADAVIST IV PRN; -LACTATED RINGER'S 1000ML 1,000 ML IV SCH; +LIDOCAINE HCL 2% 2 ML VIAL (20MG/ML) ONE; -MIDAZOLAM HCL 1 MG/ML 2ML VIAL ONE; +SODIUM CHLORIDE 0.9% 500ML 500 ML IV ONE
--- NOTE | 2016-10-04 08:34 | Endo History and Physical ---
History & Physical Date of Service: Oct 04, 2016. Chief Complaint: Esophageal thickening Referring Physician: Nacho Busch History of Present Illness 86 yo CM who presents for EGD secondary to esophageal thickening. Past Surgical History Hx Cardiac Surgery: Yes (CARDIAC CATH WITH STENT) Hx Pacemaker: No Hx Abdominal Surgery: Yes (BRYON and APPY) Hx Post-Op Nausea and Vomiting: Yes Hx Cancer Surgery: No Hx Thoracic Surgery: No Hx Orthopedic: No Hx Urinary Tract Surgery: No Family History None Social History Smoking Status: Former Smoker Hx Substance Use: No Hx Alcohol Use: No Allergies Coded Allergies: Metformin (Verified Allergy, Unknown, GI UPSET, 10/04/16) Current Medications Reported Home Medications Medications Dose Route/Sig Max Daily Dose Days Date Category Dose Instructions Vitamin D3 (Cholecalciferol) 1,000 Unit Tab 1 Tab PO DAILY 90 08/31/16 Reported Ocuvite Preservision (Multivitamins/Minerals) 1 Tab Tab 1 Tab PO BID 08/31/16 Reported Nitrostat (Nitroglycerin) 0.4 Mg Tab 0.4 Mg UT PRN 08/31/16 Reported Toprol-Xl (Metoprolol Succinate) 25 Mg Tabcr 25 Mg PO DAILY 08/31/16 Reported Ativan (Lorazepam) 0.5 Mg Tab 0.5 Mg PO UD 08/31/16 Reported Synthroid (Levothyroxine Sodium) 175 Mcg Tab 175 Mcg PO DAILY 08/31/16 Reported Dorr-3 (Fish Oil) 1 Ea Cap 1 Cap PO DAILY 08/31/16 Reported Centrum Silver (Multiple Vitamins W/ Minerals) 1 Chw Chw 1 Tab PO DAILY 08/31/16 Reported Aspirin Ec (Aspirin) 81 Mg Tab 81 Mg PO DAILY 08/31/16 Reported Lantus (Insulin Glargine) 100 Unit/Ml Inj 16 Units SC QPM 08/31/16 Reported Zestril (Lisinopril) 5 Mg Tab 5 Mg PO DAILY 01/12/16 Reported Novolog Flexpen (Insulin Aspart) 100 Units/Ml Inj 1 Dose SQ UD 01/12/16 Reported PER SLIDING SCALE Colace (Docusate Sodium) 100 Mg Cap 1 Cap PO BID 30 01/12/16 Reported Plavix (Clopidogrel Bisulfate) 75 Mg Tab 75 Mg PO DAILY 01/12/16 Reported Lipitor (Atorvastatin Calcium) 40 Mg Tab 40 Mg PO HS 11/30/16 Reported Vital Signs Weight (Kilograms): 81.5 Height (Feet): 5 Height (Inches): 9 Physical Exam General Appearance: WD/WN, no apparent distress Respiratory/Chest: Auscultation: breath sounds normal Cardiovascular: Heart Auscultation: RRR Abdomen: Bowel Sounds: normal Inspection & Palpation: soft, non-distended, no tenderness, guarding & rebound Assessment and Plan Assessment: 86 yo CM who presents for EGD secondary to esophageal thickening. Plan: Proceed with EGD.
--- NOTE | 2016-10-04 09:07 | Discharge Instructions ---
Endoscopy Patient Instructions Date / Procedure(s) Performed Oct 04, 2016. EGD Allergy Information Coded Allergies: Metformin (Verified Allergy, Unknown, GI UPSET, 10/04/16) Discharge Date / Findings Oct 04, 2016. Hiatal hernia Medication Instructions Stopped Medication(s): PLAVIX 10/03/16 ASPIRIN 09/27/16 OK to resume all medications today as prescribed Reported Home Medications Medications Dose Route/Sig Max Daily Dose Days Date Category Dose Instructions Vitamin D3 (Cholecalciferol) 1,000 Unit Tab 1 Tab PO DAILY 90 08/31/16 Reported Ocuvite Preservision (Multivitamins/Minerals) 1 Tab Tab 1 Tab PO BID 08/31/16 Reported Nitrostat (Nitroglycerin) 0.4 Mg Tab 0.4 Mg UT PRN 08/31/16 Reported Toprol-Xl (Metoprolol Succinate) 25 Mg Tabcr 25 Mg PO DAILY 08/31/16 Reported Ativan (Lorazepam) 0.5 Mg Tab 0.5 Mg PO UD 08/31/16 Reported Synthroid (Levothyroxine Sodium) 175 Mcg Tab 175 Mcg PO DAILY 08/31/16 Reported [place]-3 (Fish Oil) 1 Ea Cap 1 Cap PO DAILY 08/31/16 Reported Centrum Silver (Multiple Vitamins W/ Minerals) 1 Chw Chw 1 Tab PO DAILY 08/31/16 Reported Aspirin Ec (Aspirin) 81 Mg Tab 81 Mg PO DAILY 08/31/16 Reported Lantus (Insulin Glargine) 100 Unit/Ml Inj 16 Units SC QPM 08/31/16 Reported Zestril (Lisinopril) 5 Mg Tab 5 Mg PO DAILY 01/12/16 Reported Novolog Flexpen (Insulin Aspart) 100 Units/Ml Inj 1 Dose SQ UD 01/12/16 Reported PER SLIDING SCALE Colace (Docusate Sodium) 100 Mg Cap 1 Cap PO BID 30 01/12/16 Reported Plavix (Clopidogrel Bisulfate) 75 Mg Tab 75 Mg PO DAILY 01/12/16 Reported Lipitor (Atorvastatin Calcium) 40 Mg Tab 40 Mg PO HS 01/12/16 Reported Provider Instructions Activity Restrictions - No exercising or heavy lifting for 24 hours. - Do not drink alcohol the day of the procedure. - Do not drive a car or operate machinery until the day after the procedure. - Do not make any important decisions or sign important papers in 24 hours after the procedure. Following Day: - Return to full activity which may include returning to work/school. Diet Start your diet with liquids and light foods (jello, soup, juice, toast). Then eat your usual diet if not nauseated. Treatment For Common After Affects For mild abdominal pain, bloating, or excessive gas: - Rest - Eat lightly - Lie on right side Follow-Up Information Follow-up with DR PERES as scheduled Anesthesia Information What You Should Know You have had a procedure that required some medicine to reduce anxiety and discomfort. This treatment is called moderate sedation. After receiving the treatment, you may be sleepy, but you will be able to breathe on your own. The effects of the treatment may last for several hours. Follow these instructions along with Activity/Diet recommendations noted above: * Do NOT do anything where dizziness or clumsiness would be dangerous. * Rest quietly at home today, then you can be up and about tomorrow. * Have a responsible person stay with you the rest of today. * You may have had an I.V. today. If so, you may take the dressing off later today. Recommendations Call your doctor if: * Trouble breathing * Continuous vomiting for more than 24 hours * Temperature above 101 degrees * Severe abdominal pain or bloating * Pain not relieved by pain medicine ordered * There is increased drainage or redness from any incision * A large amount of rectal bleeding greater than 2-3 tablespoons. (If you had a polyp/s removed or have hemorrhoids, a small amount of blood - from the rectum is to be expected.) * You have any unanswered questions or concerns. IN THE EVENT OF A SERIOUS EMERGENCY, GO TO THE NEAREST EMERGENCY ROOM Your discharge instructions were prepared by provider Torsten Washington. Patient Instructions Signature Page Mick Lynn Patient (or Guardian) Signature/Date: I have read and understand the instructions given to me by my caregivers. Caregiver/RN/Doctor Signature/Date: The above-named patient and/or guardian has received patient instructions on this date. + Original Patient Signature Page (only) stays with chart. Please make copy for patient.
--- NOTE | 2016-10-04 09:21 | Anesthesiology Progress Note ---
Anesthesia Post Op Note Date & Time Oct 04, 2016 at 09:21 Vital Signs Pain Intensity: 0 Vital Signs Past 12 Hours Date Time Temp Pulse Resp B/P (MAP) Pulse Ox O2 Delivery O2 Flow Rate FiO2 10/04/16 09:03 64 16 125/57 (79) 100 Room Air 10/04/16 08:39 36.1 69 20 175/70 (105) 99 Room Air Notes Mental Status: alert / awake / arousable, participated in evaluation Pt Amnestic to Procedure: Yes Nausea / Vomiting: adequately controlled Pain: adequately controlled Airway Patency, RR, SpO2: stable & adequate BP & HR: stable & adequate Hydration State: stable & adequate Anesthetic Complications: no major complications apparent
[2016-10-04 09:33] VITALS: BP 163/76; PULSE 67; O2SAT 98
--- NOTE | 2016-10-05 00:14 | GI REPORT ---
Procedure Date: 10/04/2016 8:26 AM THIS REPORT HAS BEEN AMENDED Addendum Number: 1 Addendum Date: 10/12/2016 12:57:58 PM No specimens were collected during this procedure, and therefore, no pathology is pending. Procedure: Upper GI endoscopy Indications: Abnormal CT of the GI tract Medicines: Monitored Anesthesia Care Complications: No immediate complications. Estimated Blood Loss: Estimated blood loss: none. Procedure: Pre-Anesthesia Assessment: - Prior to the procedure, a History and Physical was performed, and patient medications and allergies were reviewed. The patient's tolerance of previous anesthesia was also reviewed. The risks and benefits of the procedure and the sedation options and risks were discussed with the patient. All questions were answered, and informed consent was obtained. Prior Anticoagulants: The patient last took aspirin 7 days and Plavix (clopidogrel) 1 day prior to the procedure. ASA Grade Assessment: III - A patient with severe systemic disease. After reviewing the risks and benefits, the patient was deemed in satisfactory condition to undergo the procedure. After obtaining informed consent, the endoscope was passed under direct vision. Throughout the procedure, the patient's blood pressure, pulse, and oxygen saturations were monitored continuously. The scope was introduced through the mouth, and advanced to the second part of duodenum. The upper GI endoscopy was accomplished without difficulty. The patient tolerated the procedure well. Findings: The esophagus was normal. A small hiatus hernia was present. The examined duodenum was normal. Impression: - Normal esophagus. - Small hiatus hernia. - Normal examined duodenum. - No specimens collected. Recommendation: - Resume previous diet. - Continue present medications. - Await pathology results. - Return to primary care physician as previously scheduled. Torsten Medina Washington, DO 10/04/2016 9:06:45 AM This report has been signed electronically. Note Initiated On: 10/04/2016 8:26 AM I attest to the content of the Intraoperative Record and orders documented therein, exceptions below Torsten Haney Felix, DO 10/12/2016 12:58:34 PM This report has been signed electronically.
== END | disposition home or self-care (01) ==
LOC: C.GI 07:59
PROVIDERS: ATTEND Internal Medicine
DX: R93.3 Abnormal findings on diagnostic imaging of other parts of digestive tract (principal); K44.9 Diaphragmatic hernia without obstruction or gangrene; Z87.891 Personal history of nicotine dependence; Z79.82 Long term (current) use of aspirin; Z79.02 Long term (current) use of antithrombotics/antiplatelets

== ENCOUNTER → 2016-11-14 | Outpatient (CLI) | payer OTHER ==
[~2016-11-14] MED LIST changes: -LIDOCAINE HCL 2% 2 ML VIAL (20MG/ML) ONE; -PROPOFOL IV EMULSION 10 MG/ML 20 ML VIAL IV ONE; -SODIUM CHLORIDE 0.9% 500ML 500 ML IV ONE
--- NOTE | 2016-11-14 16:39 | DIAGNOSTIC IMAGING REPORT ---
R RIBS UNILATERAL WITH PA CHEST CLINICAL HISTORY: Right-sided rib pain following fall. COMPARISON STUDY: Chest radiograph August 31, 2016. FINDINGS: There is no pneumothorax or pleural effusion. Note is made of an acute mildly displaced fracture of the anterior right ninth rib. No additional acute rib fractures are identified. Cardiomediastinal silhouette is stable. Lungs are clear. IMPRESSION: Acute mildly displaced anterior right ninth rib fracture. No pneumothorax. Electronically signed by: Jong Mann M.D. 11/14/2016 4:38 PM Dictated Date/Time: 11/14/2016 4:33 PM
== END | disposition home or self-care (01) ==
LOC: C.RAD1850 15:59
PROVIDERS: ATTEND Physician Assistant Medical
DX: S22.31XA Fracture of one rib, right side, initial encounter for closed fracture (principal); S20.221A Contusion of right back wall of thorax, initial encounter; W19.XXXA Unspecified fall, initial encounter

== ENCOUNTER → 2016-11-14 | Outpatient (CLI) | payer OTHER | END | disposition home or self-care (01) | LOC: C.LABBFT 15:24 | PROVIDERS: ATTEND Psychiatry & Neurology Neurology | DX: R41.3 Other amnesia (principal) ==

== ENCOUNTER 2017-09-08 22:28 | Emergency (ER) | payer OTHER ==
[~2017-09-08] VITALS: Ht 177.8 cm; Wt 75.9 kg
[2017-09-08 22:40] VITALS: TEMP 36.8; Ht 177.8 cm; Wt 75.9 kg
[2017-09-08] MEDS ORDERED: KETOROLAC TROMETHAMINE 30 MG/ML VIAL IV STA (22:53)
[2017-09-08 23:07] VITALS: O2SAT 98
[2017-09-08 23:17] LABS: BASO % 0.5 %; BASO ABS # 0.03 K/uL (0-0.2); EOS % 3.6 %; EOS ABS # 0.21 K/uL (0-0.5); HEMATOCRIT 32.8 % (42-52); HEMOGLOBIN 11.1 g/dL (14.0-18.0); IG# 0.02 K/uL (0.00-0.02); LYMPH % 32.8 %; LYMPH ABS # 1.92 K/uL (1.2-3.4); MEAN CELL VOLUME 91.9 fL (80-100); MEAN CORPUSCULAR HEMOGLOBIN 31.1 pg (25-34); MEAN CORPUSCULAR HGB CONC 33.8 g/dl (32-36); MEAN PLATELET VOLUME 9.5 fL (7.4-10.4); MONO % 9.2 %; MONO ABS # 0.54 K/uL (0.11-0.59); NEUT % 53.6 %; NEUT ABS # 3.14 K/uL (1.4-6.5); PLATELET COUNT 137 K/uL (130-400); RED CELL DISTRIBUTION WIDTH CV 12.4 % (11.5-14.5); RED CELL DISTRIBUTION WIDTH SD 41.6 fL (36.4-46.3); WHITE BLOOD COUNT 5.86 K/uL (4.8-10.8)
[2017-09-08 23:28] LABS: INR 1.1 (0.9-1.1); PTT PATIENT 25.2 SECONDS (21.0-31.0)
[2017-09-08 23:36] LABS: CALCIUM 7.9 mg/dl (8.5-10.1); CREATININE 1.37 mg/dl (0.60-1.40); POTASSIUM 4.4 mmol/L (3.5-5.1)
[2017-09-08] MEDS ORDERED: DONE5TAB26 PO (23:39)
[2017-09-08] MEDS ORDERED: LOSA25TA18 PO (23:40)
[2017-09-08] MEDS ORDERED: ASCA500 PO (23:41)
[2017-09-09] MEDS ORDERED: OPTIRAY 320 IV PRN (00:15)
[2017-09-09] MEDS ORDERED: LANTUS PER UNIT CHARGE SC STA (00:54)
[2017-09-09 00:55] VITALS: O2SAT 98
[2017-09-09] MEDS ORDERED: LANTUS PER UNIT CHARGE SQ STA (01:02)
[2017-09-09] MEDS ORDERED: ALUMINUM/MAGNESIUM SUSP 30 ML UDC PO STA (01:03)
[2017-09-09] MEDS ORDERED: LIDOCAINE HCL 2% VISC SOLN 20 ML UDC PO STA (01:03)
[2017-09-09] MEDS ORDERED: ALUMINUM/MAGNESIUM SUSP 30 ML UDC ONE (01:07)
--- NOTE | 2017-09-09 01:23 | EMERGENCY ROOM VISIT NOTE ---
History Report prepared by Xavi: Mejia Ríos Under the Supervision of: Dr. Parag Victoria M.D. First contact with patient: 22:43 Chief Complaint: CHEST PAIN Stated Complaint: CHEST PAIN Nursing Triage Summary: Patient arrived arrived via EMS. EMS report patient was watching tv at home and experienced sharp left chest pain. Patient took 4 nitro total and his pain was relieved. Patient recieved 325 of asa en route. Patient has history of cardiac stent placed. History of Present Illness The patient is an 87 year old male who presents to the Emergency Room with complaints of intermittent, sharp, left sided chest pain beginning at 5PM this evening. The patient states the episodes last for 2-3 seconds, and they have become more frequent as the day continued. He reports he tried taking 4 tablets of nitroglycerin at home, and it did not help his symptoms. The patient notes he has had three episodes since he was in the ED. He denies having a pacemaker and a history of known PVCs. The patient states he had a stent placed previously for chest pain. He reports he cannot remember if his current symptoms are similar. The patient notes he takes aspirin and has a mild cough as well. The patient denies shortness of breath, sweating, leg swelling, leg pain, a history of blood clot in the lungs, fever, and pain with deep breathing. He states other than chest pain he feels fine. Source of History: patient Onset: 5PM this evening Position: chest (left) Quality: sharp Timing: intermittent (2- 3 seconds) Modifying Factors (Worsening): other (none) Associated Symptoms: + cough, No fevers, No SOB Note: Denies: sweating, leg swelling, leg pain, pain with deep breathing Review of Systems See HPI for pertinent positives & negatives. A total of 10 systems reviewed and were otherwise negative. Past Medical & Surgical Medical Problems: (1) Acid reflux (2) Altered mental status (3) Coronary artery disease (4) Diabetes (5) High cholesterol (6) Leukocytosis Family History Patient reports no known family medical history. Social History Smoking Status: Never Smoker Marital Status: Housing Status: lives with family Occupation Status: retired Current/Historical Medications Scheduled Ascorbic Acid (Vitamin C), 500 MG PO DAILY Aspirin (Aspirin Ec), 81 MG PO DAILY Atorvastatin (Lipitor), 40 MG PO HS Cholecalciferol (Vitamin D3), 1 TAB PO DAILY Clopidogrel (Plavix), 75 MG PO DAILY Docusate Sodium (Colace), 1 CAP PO BID Donepezil Hydrochloride (Donepezil Hcl), 1 TAB PO HS Fish Oil ([place]-3), 1 CAP PO DAILY Insulin Aspart (Novolog Flexpen), 7 UNITS SQ AC Insulin Glargine (Lantus), 16 UNITS SC QPM Levothyroxine Sodium (Synthroid), 175 MCG PO DAILY Losartan Potassium (Cozaar), 25 MG PO DAILY Metoprolol Succ (Toprol Xl) (Toprol-Xl), 25 MG PO DAILY Multiple Vitamins W/ Minerals (Centrum Silver), 1 TAB PO DAILY Ocuvite Preservision (Ocuvite Preservision), 1 TAB PO BID Scheduled PRN Lorazepam (Ativan), 0.5 MG PO DAILY PRN for Anxiety Nitroglycerin (Nitrostat), 0.4 MG UT UD PRN for Chest Pain Allergies Coded Allergies: Metformin (Verified Allergy, Unknown, GI UPSET, 10/04/16) Physical Exam Vital Signs Date Time Temp Pulse Resp B/P (MAP) Pulse Ox O2 Delivery O2 Flow Rate FiO2 09/09/17 01:14 65 153/73 09/09/17 00:55 55 16 151/63 98 Room Air 09/08/17 23:50 65 16 139/58 98 Room Air 09/08/17 23:07 98 Room Air 09/08/17 22:40 36.8 65 16 139/53 99 Room Air 09/08/17 22:40 99 Room Air 09/08/17 22:40 99 Room Air 09/08/17 22:36 66 Physical Exam Constitutional: Vital signs reviewed. Eyes: Pupils are equal round reactive to light. Conjunctiva are noninjected. ENT: Pharynx is clear without erythema or exudate. Mucous membranes are moist. Neck supple without meningeal signs. Respiratory: Clear to auscultation bilaterally. Breath sounds are equal bilaterally. Cardiovascular: Regular rate and rhythm. No rubs or gallops. GI: Soft, nondistended and nontender. Bowel sounds are present. Musculoskeletal: No peripheral edema. No lower extremity tenderness. Integumentary: No cyanosis. Neurological: The patient is awake and alert. No focal deficits. Psychiatric: Normal affect. Medical Decision & Procedures ER Provider Diagnostic Interpretation: Chest One View Portable per my interpretation: No pneumothorax. Atelectasis in the right base. No consolidation. Radiology results as stated below per my review and the [facility] radiologist's interpretation: CTA CHEST: There is some artifact limiting evaluation for small peripheral PE. Atelectasis and/or scar. No consolidation. No effusion. No CT evidence for edema. Nonemergent/incidental findings include small hiatal hernia, cholecystectomy, low-density liver lesion which may represent cyst or possibly hemangioma, old fractures and small lung nodules, example right upper lobe image 216/4. Radiologist: Aron Matute MD Study ready at 0023 and initial results transmitted at 0057. Laboratory Results 09/08/17 23:08 Red Blood Count 3.57, Mean Corpuscular Volume 91.9, Mean Corpuscular Hemoglobin 31.1, Mean Corpuscular Hemoglobin Concent 33.8, Mean Platelet Volume 9.5, Neutrophils (%) (Auto) 53.6, Lymphocytes (%) (Auto) 32.8, Monocytes (%) (Auto) 9.2, Eosinophils (%) (Auto) 3.6, Basophils (%) (Auto) 0.5, Neutrophils # (Auto) 3.14, Lymphocytes # (Auto) 1.92, Monocytes # (Auto) 0.54, Eosinophils # (Auto) 0.21, Basophils # (Auto) 0.03 09/08/17 23:08 Test 09/08/17 23:08 09/09/17 00:43 White Blood Count 5.86 K/uL (4.8-10.8) Red Blood Count 3.57 M/uL (4.7-6.1) Hemoglobin 11.1 g/dL (14.0-18.0) Hematocrit 32.8 % (42-52) Mean Corpuscular Volume 91.9 fL (80-100) Mean Corpuscular Hemoglobin 31.1 pg (25-34) Mean Corpuscular Hemoglobin Concent 33.8 g/dl (32-36) Platelet Count 137 K/uL (130-400) Mean Platelet Volume 9.5 fL (7.4-10.4) Neutrophils (%) (Auto) 53.6 % Lymphocytes (%) (Auto) 32.8 % Monocytes (%) (Auto) 9.2 % Eosinophils (%) (Auto) 3.6 % Basophils (%) (Auto) 0.5 % Neutrophils # (Auto) 3.14 K/uL (1.4-6.5) Lymphocytes # (Auto) 1.92 K/uL (1.2-3.4) Monocytes # (Auto) 0.54 K/uL (0.11-0.59) Eosinophils # (Auto) 0.21 K/uL (0-0.5) Basophils # (Auto) 0.03 K/uL (0-0.2) RDW Standard Deviation 41.6 fL (36.4-46.3) RDW Coefficient of Variation 12.4 % (11.5-14.5) Immature Granulocyte % (Auto) 0.3 % Immature Granulocyte # (Auto) 0.02 K/uL (0.00-0.02) Prothrombin Time 11.1 SECONDS (9.0-12.0) Prothromb Time International Ratio 1.1 (0.9-1.1) Activated Partial Thromboplast Time 25.2 SECONDS (21.0-31.0) Partial Thromboplastin Ratio 1.0 Anion Gap 6.0 mmol/L (3-11) Est Creatinine Clear Calc Drug Dose 39.2 ml/min Estimated GFR () 53.4 Estimated GFR (Non- 46.0 BUN/Creatinine Ratio 21.4 (10-20) Calcium Level 7.9 mg/dl (8.5-10.1) Magnesium Level 2.0 mg/dl (1.8-2.4) Bedside Troponin I < 0.030 ng/ml (0-0.045) Laboratory results as reviewed by me. Medications Administered Medications (Trade) Dose Ordered Sig/Nathaniel Route Start Time Stop Time Status Last Admin Dose Admin Ketorolac Tromethamine (Toradol Inj) 10 mg NOW STAT IV 09/08/17 22:53 09/08/17 22:55 DC 09/08/17 23:04 10 MG Insulin Glargine (Lantus Per Unit) 16 units NOW STAT SQ 09/09/17 01:02 09/09/17 01:03 DC 09/09/17 01:10 16 UNITS Lidocaine HCl (Viscous Lidocaine 2% Soln) 10 ml NOW STAT PO 09/09/17 01:03 09/09/17 01:06 DC 09/09/17 01:09 10 ML Al Hydroxide/Mg Hydroxide (Maalox Susp) 30 ml NOW STAT PO 09/09/17 01:03 09/09/17 01:06 DC 09/09/17 01:09 30 ML ECG Per My Interpretation Indication: chest pain Rate (beats per minute): 64 Rhythm: sinus rhythm Findings: PVC (frequent and in a bigeminal pattern), other (No ST elevation.) ED Course 2245: The patient was evaluated in room A12B. A complete history and physical exam was performed. 2353: I reevaluated the patient and discussed his current test results. He continues to have episodic chest pain and PVCs. Medical Decision This is an 87-year-old male who presents with intermittent chest pain. Differential diagnosis includes pleurisy, GERD, pneumothorax, pneumonia, pulmonary embolism, ID. I did perform a limited focused review of portions of the patient's old chart on the electronic medical record. The patient had a cardiology consultation in [address] Zhang who noted he has a history of frequent PVCs. I did evaluate the patient as noted above. The patient is presenting with very atypical chest pain. He states that the symptoms last about 2 seconds. He has no associated symptoms with it. He does not feel short of breath or diaphoretic or nauseous or ill. IV access was established. The patient was placed on a continuous rebar bender. I did order and personally review the patient's 12-lead EKG and chest x-ray as described above. This twelve-lead EKG demonstrates multiple PVCs. 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 I did order and review the patient's blood work as noted in the electronic medical record. Troponin 2 is negative. I did order a CT of the chest. I did review the images myself as well as the radiology report as described above. There is no evidence of pulmonary embolism. I did treat the patient with Toradol IV as well as a GI cocktail. I did also gave the patient his nightly Lantus insulin. I did discuss the test results with him and the limitations of the workup done here. I did recommend close follow- up with his physician. I did review return instructions with him as well. He was discharged in good condition. Medication Reconcilliation Current Medication List: was personally reviewed by me Blood Pressure Screening Patient's blood pressure: Elevated blood pressure Blood pressure disposition: Referred to PCP Impression Primary Impression: Left sided chest pain Additional Impression: PVCs (premature ventricular contractions) Scribe Attestation The scribe's documentation has been prepared under my direct and personally reviewed by me in its entirety. I confirm that the note above accurately reflects all work, treatment, procedures, and medical decision making performed by me. Departure Information Referrals Aron Busch M.D. (PCP) Patient Instructions [facility] Problem Qualifiers
[2017-09-09 01:34] VITALS: BP 151/72; PULSE 65
--- NOTE | 2017-09-09 05:46 | DIAGNOSTIC IMAGING REPORT ---
CHEST ONE VIEW PORTABLE CLINICAL HISTORY: left cp eval for pna dyspnea COMPARISON STUDY: 08/31/2016 FINDINGS: The bones soft tissues and hemidiaphragms are normal. The cardiomediastinal silhouette is normal. The lungs are clear. The pulmonary vasculature is normal. IMPRESSION: Negative chest. The above report was generated using voice recognition software. It may contain grammatical, syntax or spelling errors. Electronically signed by: Brendan Elena M.D. 09/09/2017 5:45 AM Dictated Date/Time: 09/09/2017 5:44 AM
--- NOTE | 2017-09-09 05:54 | DIAGNOSTIC IMAGING REPORT ---
(CHEST FOR PE) ANGIO WITH CT DOSE: 571.51 mGy.cm HISTORY: Chest pain dyspnea TECHNIQUE: Multiaxial CT images of the chest were performed following the intravenous administration of contrast to evaluate the pulmonary arteries. Maximal intensity projection images were also obtained. A dose lowering technique was utilized adhering to the principles of ALARA. COMPARISON STUDY: None. FINDINGS: There is a normal caliber thoracic aorta with no evidence for dissection. There is no evidence for pulmonary embolus. No pleural effusions. No pneumothorax. The liver and spleen are unremarkable. No mediastinal or hilar lymphadenopathy. The central airways are patent. The lungs are clear. Mild bronchovascular prominence. Minimal bibasilar dependent atelectasis. IMPRESSION: No evidence for pulmonary embolus. No focal infiltrate. Mild nonspecific basilar bronchovascular prominence. The above report was generated using voice recognition software. It may contain grammatical, syntax or spelling errors. Electronically signed by: Brendan Elena M.D. 09/09/2017 5:53 AM Dictated Date/Time: 09/09/2017 5:51 AM
== END 2017-09-09 01:30 | disposition home or self-care (01) ==
LOC: EDBD 22:28 → C.EDA 22:30
DX: R07.89 Other chest pain (principal); I49.3 Ventricular premature depolarization; R03.0 Elevated blood-pressure reading, without diagnosis of hypertension; E78.00 Pure hypercholesterolemia, unspecified; E11.9 Type 2 diabetes mellitus without complications; Z79.4 Long term (current) use of insulin; Z79.02 Long term (current) use of antithrombotics/antiplatelets; Z79.82 Long term (current) use of aspirin; Z88.8 Allergy status to other drugs, medicaments and biological substances

== ENCOUNTER → 2017-09-18 | Outpatient (CLI) | payer OTHER ==
[~2017-09-18] MED LIST changes: +ASCA500 PO; +DONE5TAB26 PO; -LISI-729 PO; +LOSA25TA18 PO
--- NOTE | 2017-09-18 17:12 | DIAGNOSTIC IMAGING REPORT ---
R HAND MIN 3 VIEWS ROUTINE CLINICAL HISTORY: 87 years-old Male presenting with S69.91XA Injury of right hand. TECHNIQUE: Frontal, oblique, and lateral views of the right hand were obtained. COMPARISON: None. FINDINGS: Osteopenia suspected. Joint space loss and osteophytosis noted at multiple distal interphalangeal joints as well as in the proximal interphalangeal joint of the fourth finger. Marginal erosion evident at the head of the middle phalanx of the second finger. Subchondral cystic change evident at the bases of the middle phalanges of the second and third fingers. No acute fracture or malalignment. The carpus demonstrates mild degenerative change. Diffuse soft tissue swelling of the second through third finger suggested. Atherosclerosis. IMPRESSION: 1. No acute osseous injury. 2. Osteopenia. 3. Degenerative changes of multiple DIP joints and the fourth PIP. With the presence of a marginal erosion at the second DIP joint, inflammatory arthropathy could be considered including psoriatic arthritis. Electronically signed by: Levon Phelan M.D. 09/18/2017 5:11 PM Dictated Date/Time: 09/18/2017 5:00 PM
== END | disposition home or self-care (01) ==
LOC: C.LAB1850 16:32
PROVIDERS: ATTEND Physician Assistant Medical
DX: S69.91XA Unspecified injury of right wrist, hand and finger(s), initial encounter (principal); M85.841 Other specified disorders of bone density and structure, right hand; X58.XXXA Exposure to other specified factors, initial encounter

== ENCOUNTER 2019-07-24 16:10 | Observation (INO) ==
[2019-07-24] MEDS ORDERED: ASPIRIN CHEW 324 MG PO STA (16:23)
--- NOTE | 2019-07-24 16:26 | Emergency Department Note ---
Impression & Plan NSTEMI (non-ST elevated myocardial infarction), Coronary artery disease, Dementia ED Provider Note NAME: VINNIE JARRETT AGE: 89 SEX: M : 1930 ARRIVES VIA: Walk-In INFORMANT: Patient ED PROVIDER(S): Shilo Alexander DO CHIEF COMPLAINT: Chest pain and shortness of breath with exertion HPI: Patient is a 89-year-old male with a past medical history of diabetes, CAD hypertension and dementia who presents the ER for exertional chest pain and shortness of breath which has been going on for the past 2 weeks. has been intermittently giving him nitro. Pain resolves with rest and improves with nitro. He notes last time he got this was this morning. He went to his PCP for checkup and informed him of what was going on. EKG was obtained and showed new ST depressions. Patient was referred into the ER. Currently patient has no complaints. He does believe the pain feels as a pressure but does not remember where it normally goes in his chest. ROS: See above HPI for pertinent positives & negatives. A total of 10 systems reviewed and were otherwise negative. PAST MEDICAL HISTORY:See Below PAST SURGICAL HISTORY:See Below FAMILY HISTORY:See Below SOCIAL HISTORY:See Below HOME MEDICATIONS:See Below ALLERGIES:See Below VITALS:See Below PHYSICAL EXAMINATION: GENERAL: Sitting up in bed, alert, well appearing, well nourished, no distress, non-toxic EYE EXAM: normal conjunctiva. OROPHARYNX: no exudate, no erythema, lips, buccal mucosa, and tongue normal and mucous membranes are moist NECK: supple, no nuchal rigidity, no adenopathy, non-tender LUNGS: Clear to auscultation. Normal chest wall mechanics HEART: no murmurs, S1 normal and S2 normal ABDOMEN: abdomen soft, non-tender, normo-active bowel sounds, no masses, no rebound or guarding. BACK: Back is symmetrical on inspection and there is no deformity, no midline tenderness, no CVA tenderness. SKIN: no rashes and no bruising UPPER EXTREMITIES: upper extremities are grossly normal. LOWER EXTREMITIES: No pitting edema. Calves are equal bilateral NEURO EXAM: Awake alert oriented to person place but not year following commands moving all extremities. MEDICAL DECISION MAKING: Patient is an 89-year-old male who presents the ER for exertional chest pain shortness of breath which is been present for the past 2 weeks. He currently has no symptoms. He went to his PCP was referred in. IV was established blood work was obtained. Labs show no significant leukocytosis or anemia. INR unremarkable. BMP slightly elevated glucose. LFTs bilirubin were negative. Troponin was elevated at 0.113 lipase was normal. Patient has absolutely no chest pain or shortness of breath at this time. He did have some earlier this morning. As he is asymptomatic held on anticoagulation. Was given aspirin. Discussed with the hospitalist. Patient was admitted for non-STEMI. Triage Nursing notes reviewed. Prior medical records reviewed Vital Signs: reviewed and remarkable for hypertension Differential diagnosis: Differential diagnoses includes but is not limited to acute coronary syndrome, myocardial infarction, pericarditis, pulmonary embolus, aortic dissection, pneumonia, pneumothorax, musculoskeletal, shingles, esophageal. ER treatment provided: See below Diagnostics interpreted by me: ECG: Sinus rhythm rate of [address] depressions in the lateral leads Low voltage First-degree AV block Normal QTC Cardiac Monitoring: An order was placed for continuous cardiac monitoring. The monitor shows a rate of 61 with sinus rhythm. Laboratory studies: As stated above and show below. 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 Beliefs That Will Affect Care: None marital status: Current Living Situation: Spouse current occupational status: retired Other Information That Helps Us Care for You: No Feels Safe at Home: Yes Safety Concerns: Feels Safe At This Time Smoking Status: Former smoker Hx Alcohol Use: No Hx Substance Use: No caffeine: Yes during the past year weight has: remained stable Dental Care, Regularly: Yes Allergies Allergies Allergy/AdvReac Type Severity Reaction Status Date / Time metformin Allergy Unknown Gastrointestinal Verified 07/24/19 17:41 Upset Home Meds Home Medications Medication Instructions Recorded Confirmed Unknown Insulin 7 unit SUBCUT TIDM 07/24/19 07/24/19 aspirin 81 mg PO QAM 07/24/19 07/24/19 atorvastatin 40 mg PO 07/24/19 07/24/19 clopidogrel 75 mg PO QAM 07/24/19 07/24/19 insulin glargine [Lantus Solostar 16 units SQ 07/24/19 07/24/19 U-100 Insulin] levothyroxine 175 mcg PO QAM 07/24/19 07/24/19 lorazepam 0.5 mg PO DAILY PRN 07/24/19 07/24/19 losartan 25 mg PO QAM 07/24/19 07/24/19 metoprolol succinate [Toprol XL] 25 mg PO QAM 07/24/19 07/24/19 nitroglycerin 0.4 mg SL DIRECTED PRN 07/24/19 07/24/19 Results & Data (ED) Vital Signs Vital Signs - 24 hr 07/24/19 16:11 07/24/19 16:20 07/24/19 16:24 Temperature 36.6 C Temperature Source Oral Pulse Rate 50 L 66 Pulse Rate [Apical] Pulse Rate from SpO2 Sensor Respiratory Rate 20 20 Respiratory Effort / Characteristics Non-Labored Respiratory Depth Normal Respiratory Pattern Blood Pressure 146/72 H Blood Pressure [Left Arm] Blood Pressure Mean 96 Blood Pressure Mean [Left Arm] Pulse Oximetry 98 99 99 Oxygen Delivery Method Room Air Room Air Room Air Sepsis Recent Fever Within 48 Hours No Sepsis Action Taken by Nursing No Action Required 07/24/19 16:27 07/24/19 16:31 07/24/19 16:33 Temperature Temperature Source Pulse Rate 59 L 56 L Pulse Rate [Apical] 67 Pulse Rate from SpO2 Sensor 58 L 40 L Respiratory Rate 20 23 19 Respiratory Effort / Characteristics Non-Labored Spontaneous Respiratory Depth Normal Respiratory Pattern Regular Blood Pressure 151/65 H Blood Pressure [Left Arm] 172/67 H Blood Pressure Mean 87 Blood Pressure Mean [Left Arm] 102 Pulse Oximetry 99 98 98 Oxygen Delivery Method Room Air Sepsis Recent Fever Within 48 Hours Sepsis Action Taken by Nursing 07/24/19 17:00 07/24/19 17:01 07/24/19 17:30 Temperature Temperature Source Pulse Rate 61 56 L 59 L Pulse Rate [Apical] Pulse Rate from SpO2 Sensor 45 L 56 L 51 L Respiratory Rate 15 14 22 Respiratory Effort / Characteristics Respiratory Depth Respiratory Pattern Blood Pressure 152/64 H Blood Pressure [Left Arm] Blood Pressure Mean 73 Blood Pressure Mean [Left Arm] Pulse Oximetry 98 98 98 Oxygen Delivery Method Sepsis Recent Fever Within 48 Hours Sepsis Action Taken by Nursing 07/24/19 17:31 07/24/19 17:32 Temperature Temperature Source Pulse Rate 57 L 59 L Pulse Rate [Apical] Pulse Rate from SpO2 Sensor 58 L 59 L Respiratory Rate 18 16 Respiratory Effort / Characteristics Respiratory Depth Respiratory Pattern Blood Pressure 131/61 Blood Pressure [Left Arm] Blood Pressure Mean 89 Blood Pressure Mean [Left Arm] Pulse Oximetry 99 99 Oxygen Delivery Method Sepsis Recent Fever Within 48 Hours Sepsis Action Taken by Nursing Laboratory Data Result diagrams: 07/24/19 16:27 07/24/19 16:27 Lab Results 07/24/19 07/24/19 07/24/19 Range/Units 16:27 16:27 16:27 WBC 6.61 (4.8-10.8) K/uL RBC 4.08 L (4.7-6.1) M/uL Hgb 12.2 L (14.0-18.0) g/dL Hct 37.8 L (42-52) % MCV 92.6 (80-100) fL MCH 29.9 (25-34) pg MCHC 32.3 (32-36) g/dL RDW Std Deviation 42.9 (36.4-46.3) fL RDW Coeff of Nia 12.7 (11.5-14.5) % Plt Count 167 (130-400) K/uL MPV 9.9 (7.4-10.4) fL Immature Gran % (Auto) 0.5 % Neut % (Auto) 60.8 % Lymph % (Auto) 27.7 % Pierce % (Auto) 7.9 % Eos % (Auto) 2.6 % Baso % (Auto) 0.5 % Immature Gran # (Auto) 0.03 H (0.00-0.02) K/uL Neut # (Auto) 4.03 (1.4-6.5) K/uL Lymph # (Auto) 1.83 (1.2-3.4) K/uL Pierce # (Auto) 0.52 (0.11-0.59) K/uL Eos # (Auto) 0.17 (0-0.5) K/uL Baso # (Auto) 0.03 (0-0.2) K/uL PT 11.1 (9.0-12.0) Seconds INR 1.1 (0.9-1.1) APTT 24.2 (21.0-31.0) Seconds PTT Ratio 0.9 Sodium 142 (136-145) mmol/L Potassium 4.7 (3.5-5.1) mmol/L Chloride 112 H (98-107) mmol/L Carbon Dioxide 26 (21-32) mmol/L Anion Gap 4.0 (3-11) BUN 25 H (7-18) mg/dl Creatinine 1.19 (0.6-1.4) mg/dl Est Cr Clr Drug Dosing 43.5 ml/min Est GFR ( Amer) 62.4 Est GFR (Non-Af Amer) 53.8 BUN/Creatinine Ratio 21.3 H (10-20) Glucose 113 H (70-99) mg/dl Calcium 8.6 (8.5-10.1) mg/dl Total Bilirubin 0.4 (0.2-1) mg/dl AST 40 H (15-37) U/L ALT 72 (12-78) U/L Alkaline Phosphatase 91 (45-117) U/L Troponin I 0.113 H* (0-0.045) ng/ml Total Protein 7.1 (6.4-8.2) gm/dl Albumin 3.8 (3.4-5.0) gm/dl Globulin 3.3 (2.5-4.0) gm/dl Albumin/Globulin Ratio 1.2 (0.9-2) Lipase 75 (73-393) U/L Administered Medications Discontinued Medications Al Hydrox/Mg Hydrox/Simethicone (Maalox) 15 ml PO NOW STA Stop: 07/24/19 18:08 Last Admin: 07/24/19 18:17 Dose: 15 ml Documented by: [id number] Aspirin (Aspirin) 324 mg PO NOW STA Stop: 07/24/19 16:24 Last Admin: 07/24/19 16:35 Dose: 324 mg Documented by: [id number] Famotidine (Pepcid) 20 mg PO NOW ONE Stop: 07/24/19 18:08 Last Admin: 07/24/19 18:17 Dose: 20 mg Documented by: [id number] Sodium Chloride (Nss) 500 mls @ 999 mls/hr IV .Q31M SELIN Stop: 07/24/19 17:00 Last Infusion: 07/24/19 17:35 Dose: 0 mls/hr Documented by: [id number] Admin: 07/24/19 16:36 Dose: 999 mls/hr Documented by: [id number] Discharge Plan Visit Data *Final* Discharge Date/Time: 07/24/19 18:29 Chief Complaint: Cardiac Assessment Stated Complaint: DR FIELDS, CARDIAC ASSESSMENT ED Provider: Shilo Alexander Discharge Problem: NSTEMI (non-ST elevated myocardial infarction), Coronary artery disease, Dementia Patient Disposition: Admitted As Inpatient Discharge Instructions Interventions: ED Discharge Assessment Last Done: 07/24/19 18:29 Discharge Problem: Coronary artery disease Qualifiers: Coronary Disease-Associated Artery/Lesion type: unspecified vessel or lesion type [place] vs. transplanted heart: unspecified whether [place] or transplanted heart Associated angina: without angina Qualified Code(s): I25.10 - Atherosclerotic heart disease of [place] coronary artery without angina pectoris Dementia Qualifiers: Dementia type: unspecified type Dementia behavioral disturbance: without behavioral disturbance Qualified Code(s): F03.90 - Unspecified dementia without behavioral disturbance
[2019-07-24] MEDS ORDERED: SODIUM CHLORIDE 0.9% 500 ML IV SCH (16:30)
--- NOTE | 2019-07-24 16:34 | XRay Report ---
XR chest 1V portable CLINICAL HISTORY: Atypical chest pain COMPARISON STUDY: 08/31/2017 FINDINGS: The heart is the upper limits of normal in size. There is no failure. There is no focal pul monary consolidation. There are no pleural effusions. There is no pneumothorax.[ IMPRESSION: No active disease in the chest. ACT 112: Negative or not required by law. Electronically signed by: Praful Salvador M.D. 07/24/2019 4:33 PM
[2019-07-24 17:01] LABS: Albumin Level 3.8 gm/dl (3.4-5.0); BUN Creatinine Ratio 21.3 (10-20); Calcium 8.6 mg/dl (8.5-10.1); Creatinine Clr Calc Pharmacy 43.5 ml/min; Est GFR (African American) 62.4; Est GFR (Non-African American) 53.8; Potassium 4.7 mmol/L (3.5-5.1)
[2019-07-24 17:09] LABS: Albumin Globulin Ratio 1.2 (0.9-2); Bilirubin,Total 0.4 mg/dl (0.2-1); Globulin 3.3 gm/dl (2.5-4.0); Total Protein 7.1 gm/dl (6.4-8.2); Troponin I 0.113 ng/ml (0-0.045)
[2019-07-24 17:38] LABS: Basophils # (auto) 0.03 K/uL (0-0.2); Basophils % (auto) 0.5 %; Eosinophils # (auto) 0.17 K/uL (0-0.5); Eosinophils % (auto) 2.6 %; Hematocrit (blood only) 37.8 % (42-52); Hemoglobin 12.2 g/dL (14.0-18.0); Immature Granulocytes # (auto) 0.03 K/uL (0.00-0.02); Immature Granulocytes % (auto) 0.5 %; Lymphocytes # (auto) 1.83 K/uL (1.2-3.4); Lymphocytes % (auto) 27.7 %; Mean Corpuscular Hemoglobin 29.9 pg (25-34); Mean Corpuscular Hgb Conc 32.3 g/dL (32-36); Mean Corpuscular Volume 92.6 fL (80-100); Mean Platelet Volume 9.9 fL (7.4-10.4); Monocytes # (auto) 0.52 K/uL (0.11-0.59); Monocytes % (auto) 7.9 %; Neutrophils # (auto) 4.03 K/uL (1.4-6.5); Neutrophils % (auto) 60.8 %; Platelet Count 167 K/uL (130-400); RDW Coefficient of Variation 12.7 % (11.5-14.5); RDW Standard Deviation 42.9 fL (36.4-46.3); Red Blood Count 4.08 M/uL (4.7-6.1); White Blood Count 6.61 K/uL (4.8-10.8)
[2019-07-24 17:52] LABS: INR 1.1 (0.9-1.1); Partial Thromboplastin Ratio 0.9; Partial Thromboplastin Time 24.2 Seconds (21.0-31.0); Prothrombin Time 11.1 Seconds (9.0-12.0)
--- NOTE | 2019-07-24 17:55 | History & Physical Report ---
Date of Service July 24, 2019 Assessment & Plan (1) NSTEMI (non-ST elevated myocardial infarction): EKG changes with troponin elevation consistent with this. Suspect majority of chest pain he has been having is cardiac. Currently without chest pain when seen. ASA 324mg PO given in ER. Continue ASA, Plavix, Metoprolol, losartan, atorvastatin If symptomatic overnight, repeat EKG and start nitro paste Previously on ISMN with good effect although questionably made him more orthostatic, consider switching his losartan for ISMN Lipid panel and HbA1C in AM to optimize risk factors Consult cardiology to discuss ongoing med management vs. cardiac cath (NPO after midnight for the remote possibility this is done tomorrow) (2) Coronary artery disease: As above for CAD (3) Acid reflux: Part of his pains are clearly more reflux related with associated belching Famotidine and maalox given in ER to avoid his confusion with this burning sensation pain Start pantoprazole 40mg PO daily (4) Type 2 diabetes mellitus: HbA1C in AM, previously well controlled Consult pharmacy for glycemic control with basal bolus insulin (5) Hypertension: Continue metoprolol succinate and losartan (6) Hypothyroidism: Repeat TSH as last test > 1 year previous Continue levothyroxine 175 mcg PO daily (7) Peripheral neuropathy: PT/OT evals once cleared by cardiology (8) DVT prophylaxis: Lovenox 30mg SQ daily History of Present Illness Primary Care Provider: Aron Busch MD Mick Lynn is an 89 year old male with known coronary artery disease s/p CANDIE to RCA 2016, Hx CVA, who presents to the ER on advice of his PCP office due to ongoing chest pains for the past 2 weeks. Difficulty taking an accurate history from the patient due to his dementia. On palpation of his stomach causing his pain he notes this is the same pain he has been having for 2 weeks, but also points to his chest when asked where the pain is. Appears to be exertional. He does not feel . At times he notes it is a burning pain. Appears to be intermittent. No associated diaphoresis, SOB, cough. When asked specifically a bout reflux he tells me about the time he had that during the [place] war. Discussed with his over the phone who reports he is stoic and doesn't always complain about pains when he gets them so difficult to know exact duration but feels he has been having chest pain that is worse with exertion and mainly treats it with resting in the chair. On one episode 2 weeks ago she treated him with the nitro x3 in 15 minutes but she is unsure if this really helped. Despite stopping the ISMN he still becomes orthostatic and she is unsure whether stopping this medication truly helped. She has been advising the patient to come to the ER for the last 2 weeks but due to COVID-19 he has been afraid to come in. Never worse when lying down, no association to time of day or when he ate. Would hold his chest when he would complain about the pain. Just today she noted he was more burping today but not that usual for him. Yesterday he felt "sick to the stomach" all day which prompted his visit to his PCP office today. Very occasional lorazepam use. < once a week. In the ER he was given 324mg PO ASA and is currently chest pain free. Allergies Allergy/AdvReac Type Severity Reaction Status Date / Time metformin Allergy Unknown Gastrointestinal Verified 07/24/19 17:41 Upset Home Medications Home Medications Medication Instructions Recorded Confirmed Type Unknown Insulin 7 unit SUBCUT TIDM 07/24/19 07/24/19 History aspirin 81 mg PO QAM 07/24/19 07/24/19 History atorvastatin 40 mg PO HS 07/24/19 07/24/19 History clopidogrel 75 mg PO QAM 07/24/19 07/24/19 History insulin glargine [Lantus Solostar 16 units SQ HS 07/24/19 07/24/19 History U-100 Insulin] levothyroxine 175 mcg PO QAM 07/24/19 07/24/19 History lorazepam 0.5 mg PO DAILY PRN 07/24/19 07/24/19 History losartan 25 mg PO QAM 07/24/19 07/24/19 History metoprolol succinate [Toprol XL] 25 mg PO QAM 07/24/19 07/24/19 History nitroglycerin 0.4 mg SL DIRECTED PRN 07/24/19 07/24/19 History Past Med/Surg History Family History (Updated 04/21/19 @ 14:53 by Carol Hodge) Father [place] workers pneumoconiosis Brother Epilepsy Daughter Migraine headache Son Seizures Social History (Updated 07/24/19 @ 13:37 by Marcia Hurtado MA) Preferred Language: Nigerian Communication Ability: Effective Visual Impairment: No Limitations Hearing Ability: Use of Hearing Aid 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 Beliefs That Will Affect Care: None marital status: Current Living Situation: Spouse current occupational status: retired Other Information That Helps Us Care for You: No Feels Safe at Home: Yes Safety Concerns: Feels Safe At This Time Smoking Status: Former smoker Hx Alcohol Use: No Hx Substance Use: No caffeine: Yes during the past year weight has: remained stable Dental Care, Regularly: Yes Review of Systems Review of Systems: All systems reviewed & are unremarkable except as noted in HPI & below Physical Exam Constitutional: WD/WN, vitals as above Eyes: PERRL, conjunctivae normal, anicteric sclerae ENMT: external ear and nose normal, oropharynx normal Neck: trachea midline, no thyromegaly Respiratory: normal respiratory effort, lungs clear to auscultation Cardiovascular: RRR, no murmur, no edema Gastrointestinal (Abdomen): Inspection/Auscultation: normal bowel sounds Percussion/Palpation: + abdomen tender (mild epigastric) and abdomen soft; no guarding and abdomen not rigid Musculoskeletal: no cyanosis or clubbing, extremities motor strength 5/5 Skin: no rashes, warm and dry Neurologic: moves all extremities and awake; no focal motor deficits and not confused Speech / Cognition: normal speech Motor/Sensory: no tremor and no pronator drift Psychiatric: Orientation: alert, oriented to person, oriented to place and oriented to time (Year and gross time of day, not month, day or date) Genitourinary: no CVA tenderness Lymphatic: no cervical or axillary lymphadenopathy Results & Data Results & Data ([facility]) Vital Signs (Past 12 Hours) Vital Signs Temp Pulse Pulse Resp BP BP Pulse Ox 07/24/19 17:31 57 L 18 131/61 99 07/24/19 17:30 59 L 22 98 07/24/19 17:01 56 L 14 152/64 H 98 07/24/19 17:00 61 15 98 07/24/19 16:33 56 L 19 98 07/24/19 16:31 59 L 23 151/65 H 98 07/24/19 16:27 67 20 172/67 H 99 07/24/19 16:24 66 20 99 07/24/19 16:20 99 07/24/19 16:11 36.6 C 50 L 20 146/72 H 98 Diagnostic Findings XR chest 1V portable IMPRESSION: No active disease in the chest. Medications Administered ASA 324mg PO stat given in ER ECG Rate (beats per minute): 57 Rhythm: sinus bradycardia Findings: + ST depression (Lateral) and + T-wave inversion (Lateral) Comparison ECG Date: from (09/08/2017) Change: the following changes noted (TWI, ST depressions) Code Status & VTE Plan Code Status Full as discussed with the patient VTE Prophylaxis Plan VTE Prophylaxis will be ordered: Yes PG Care Time/CCT Total # of Minutes Spent Total Time Spent with Patient: Total time spent is greater than 50% in coordination of care (as documented) at patient's floor/unit and/or counseling patient: Coding Level of Care Code 85080 Initial Inpt Care Lvl 3 Diagnoses NSTEMI (non-ST elevated myocardial infarction) I21.4 Coronary artery disease I25.10 Acid reflux K21.9 Type 2 diabetes mellitus E11.9 Hypertension I10 Hypothyroidism E03.9 Peripheral neuropathy G62.9 DVT prophylaxis Z29.9
[2019-07-24] MEDS ORDERED: PHARMACY GLYCEMIC MGMT CONSULT STA (17:58)
[2019-07-24] MEDS ORDERED: ALUMINUM/MAGNESIUM SUSP 30 ML UDC PO STA (18:07)
[2019-07-24] MEDS ORDERED: FAMOTIDINE 20 MG TAB PO ONE (18:07)
[2019-07-24] MEDS ORDERED: ACETAMINOPHEN 325 MG TAB PO PRN (19:34)
[2019-07-24] MEDS ORDERED: ONDANSETRON INJ 2 MG/ML 2 ML VIAL IV PRN (19:34)
[2019-07-24] MEDS ORDERED: POLYETHYLENE (MIRALAX) 17 GM PACK PO PRN (19:34)
[2019-07-24] MEDS ORDERED: ALUMINUM/MAGNESIUM SUSP 30 ML UDC PO PRN (19:34)
[2019-07-24] MEDS ORDERED: LORazepam 0.5 MG TAB PO PRN (19:34)
[2019-07-24] MEDS ORDERED: NITROGLYCERIN SL 0.4 MG/TAB TAB SL PRN (19:34)
[2019-07-24] MEDS ORDERED: MAGNESIUM HYDROXIDE SUSP 30 ML UDC PO PRN (19:34)
[2019-07-24] MEDS ORDERED: PHARMACY GLYCEMIC MGMT CONSULT PRN (20:09)
[2019-07-24] MEDS ORDERED: GLUCAGON FOR INJ 1 MG VIAL IM PRN (20:15)
[2019-07-24] MEDS ORDERED: CARBOHYDRATES FOR HYPOGLYCEMIA PO PRN (20:15)
[2019-07-24] MEDS ORDERED: GLUCOSE 10 TABS/TUBE PO PRN (20:15)
[2019-07-24] MEDS ORDERED: DEXTROSE 50% 50 ML SYRINGE IV PRN (20:15)
[2019-07-24] MEDS ORDERED: GLUCOSE 40% GEL 15 GM TUBE PO PRN (20:15)
--- NOTE | 2019-07-24 20:22 | Pharmacy Report ---
Glycemic Control Consultation - Date of Service July 24, 2019 - Scope Scope: Glycemic Pharmacist consulted for glycemic control and to write orders per [facility] inpatient glycemic control protocol. - Objective Weight: 80.6 kg Accuchecks BSG (last 24hrs): 07/24/19 16:27 Glucose 113 H Laboratory Data (last 24hrs): 07/24/19 16:27 Potassium 4.7 Carbon Dioxide 26 Anion Gap 4.0 Creatinine 1.19 Est Cr Clr Drug Dosing 43.5 - Recent Pertinent Medications Outpatient Anti-diabetic Regimen: * Lantus 16 units HS, Novolog 7 units TIDAC * A1c = 7. * 7.3% on 12-17-2018 Risk Factors for Insulin Resistance: * Diet: T2DM but NPO after midnight - Assessment & Plan Assessment & Plan: ASSESSMENT: * 89 yo M admitted secondary to chest pain * Med rec and outpatient fill history show patient takes Lantus 16 units HS and Novolog 7 units TIDAC * Patient reports taking Lantus 60 units HS and Novolog 14 units TIDAC * Most recent A1c is acceptable given patient's age and comorbidities * Patient will be eating tonight before bed but then will be NPO after midnight * Plan for low dose Lantus this evening and Novolog based on weight and stress of 2. PLAN FOR INPATIENT GLYCEMIC CONTROL: * Basal insulin * Lantus 8 units SQ HS x 1 * Bolus insulin * NovoLog per scale ACHS or Q6hrs while NPO * Goal Range: Low 110 mg/dL - High 140 mg/dL * Correction Factor: 30 mg/dL/unit * Nutritional / Prandial insulin per carb ratio of 1 unit per 10 grams CHO consumed * Please note that the plan above was derived based on current level of insulin resistance and hospital stress. These recommendations are appropriate for inpatient admission only. Plan of care upon discharge will need to be reassessed to avoid potential outpatient hypo/hyperglycemia. Thank you.
[2019-07-24] MEDS: INSULIN ASPART 100 UNITS/ML 3 ML PEN SC SCH (20:55)
[2019-07-24] MEDS ORDERED: ATORVASTATIN 40 MG TAB PO SCH (21:00)
[2019-07-24] MEDS ORDERED: INSULIN GLARGINE SOLOSTAR 100 UNITS/ML 3 ML PEN SC SCH (21:00)
[2019-07-24] MEDS ORDERED: ENOXAPARIN INJ 30 MG/0.3 ML SYR SQ ONE (22:35)
[2019-07-25 05:50] LABS: Basophils # (auto) 0.03 K/uL (0-0.2); Basophils % (auto) 0.5 %; Eosinophils # (auto) 0.18 K/uL (0-0.5); Eosinophils % (auto) 3.3 %; Hemoglobin 11.2 g/dL (14.0-18.0); Immature Granulocytes # (auto) 0.01 K/uL (0.00-0.02); Immature Granulocytes % (auto) 0.2 %; Lymphocytes # (auto) 1.34 K/uL (1.2-3.4); Lymphocytes % (auto) 24.5 %; Mean Corpuscular Hemoglobin 30.3 pg (25-34); Mean Corpuscular Hgb Conc 32.9 g/dL (32-36); Mean Corpuscular Volume 91.9 fL (80-100); Mean Platelet Volume 9.6 fL (7.4-10.4); Monocytes # (auto) 0.53 K/uL (0.11-0.59); Monocytes % (auto) 9.7 %; Neutrophils # (auto) 3.38 K/uL (1.4-6.5); Neutrophils % (auto) 61.8 %; Platelet Count 145 K/uL (130-400); RDW Coefficient of Variation 12.6 % (11.5-14.5); RDW Standard Deviation 42.7 fL (36.4-46.3); White Blood Count 5.47 K/uL (4.8-10.8)
[2019-07-25 06:25] LABS: BUN Creatinine Ratio 22.7 (10-20); Calcium 8.6 mg/dl (8.5-10.1); Creatinine Clr Calc Pharmacy 48.8 ml/min; Est GFR (African American) 71.8; Est GFR (Non-African American) 61.9; Potassium 4.4 mmol/L (3.5-5.1)
[2019-07-25] MEDS ORDERED: LEVOTHYROXINE SODIUM 175 MCG TABLET PO SCH (06:30)
[2019-07-25 06:45] LABS: Thyroid Stimulating Hormone 3.27 uIu/ml (0.300-4.500); Troponin I 0.095 ng/ml (0-0.045)
[2019-07-25 07:20] LABS: Estimated Average Glucose 163 mg/dl; Hemoglobin A1C 7.3 % (4.5-5.6)
[2019-07-25] MEDS: INSULIN ASPART 100 UNITS/ML 3 ML PEN SC SCH ×2 (08:21→13:02)
[2019-07-25] MEDS ORDERED: LOSARTAN POTASSIUM 25 MG TAB PO SCH (09:00)
[2019-07-25] MEDS ORDERED: METOPROLOL SUCC 25MG EXT REL TAB PO SCH (09:00)
[2019-07-25] MEDS ORDERED: PANTOprazole 40 MG TAB PO SCH (09:00)
[2019-07-25] MEDS ORDERED: CLOPIDOGREL BISULFATE 75 MG TAB PO SCH (09:00)
[2019-07-25] MEDS ORDERED: ASPIRIN 81 MG ECTAB PO SCH (09:00)
--- NOTE | 2019-07-25 11:52 | Discharge Summary ---
Date of Service July 25, 2019 Admission HPI Per Admitting Provider Mick Lynn is an 89 year old male with known coronary artery disease s/p CANDIE to RCA 2016, Hx CVA, who presents to the ER on advice of his PCP office due to ongoing chest pains for the past 2 weeks. Difficulty taking an accurate history from the patient due to his dementia. On palpation of his stomach causing his pain he notes this is the same pain he has been having for 2 weeks, but also points to his chest when asked where the pain is. Appears to be exertional. He does not feel . At times he notes it is a burning pain. Appears to be intermittent. No associated diaphoresis, SOB, cough. When asked specifically ab out reflux he tells me about the time he had that during the [place] war. Discussed with his over the phone who reports he is stoic and doesn't always complain about pains when he gets them so difficult to know exact duration but feels he has been having chest pain that is worse with exertion and mainly treats it with resting in the chair. On one episode 2 weeks ago she treated him with the nitro x3 in 15 minutes but she is unsure if this really helped. Despite stopping the ISMN he still becomes orthostatic and she is unsure whether stopping this medication truly helped. She has been advising the patient to come to the ER for the last 2 weeks but due to COVID-19 he has been afraid to come in. Never worse when lying down, no association to time of day or when he ate. Would hold his chest when he would complain about the pain. Just today she noted he was more burping today but not that usual for him. Yesterday he felt "sick to the stomach" all day which prompted his visit to his PCP office today. Very occasional lorazepam use. < once a week. In the ER he was given 324mg PO ASA and is currently chest pain free. Admission Exam Per Admitting Provider Constitutional: WD/WN, vitals as above Eyes: PERRL, conjunctivae normal, anicteric sclerae ENMT: external ear and nose normal, oropharynx normal Neck: trachea midline, no thyromegaly Respiratory: normal respiratory effort, lungs clear to auscultation Cardiovascular: RRR, no murmur, no edema Gastrointestinal (Abdomen): Inspection/Auscultation: normal bowel sounds Percussion/Palpation: + abdomen tender (mild epigastric) and abdomen soft; no guarding and abdomen not rigid Musculoskeletal: no cyanosis or clubbing, extremities motor strength 5/5 Skin: no rashes, warm and dry Neurologic: moves all extremities and awake; no focal motor deficits and not confused Speech / Cognition: normal speech Motor/Sensory: no tremor and no pronator drift Psychiatric: Orientation: alert, oriented to person, oriented to place and oriented to time (Year and gross time of day, not month, day or date) Genitourinary: no CVA tenderness Lymphatic: no cervical or axillary lymphadenopathy Principal Diagnosis NSTEMI CAD reflux Discharge Exam Constitutional WD/WN, vitals as above ENMT external ear and nose normal, oropharynx normal Neck trachea midline Respiratory normal respiratory effort, lungs clear to auscultation Cardiovascular Rate/Rhythm: regular rate Heart Sounds: no murmur Vessels: + carotid bruit (slight bilateral); no JVD Gastrointestinal (Abdomen) Inspection/Auscultation: abdomen normal to inspection and normal bowel sounds Percussion/Palpation: abdomen soft; abdomen nontender, no guarding and abdomen not rigid Skin no rashes, warm and dry Discharge Data Allergies Allergy/AdvReac Type Severity Reaction Status Date / Time metformin Allergy Unknown Gastrointestinal Verified 07/24/19 17:41 Upset Consultations 07/24/19 19:34 Consult Cardiology Routine Hospital Course (1) NSTEMI (non-ST elevated myocardial infarction): 89 yo M w/ PMHx. of IDDM, Hypothyroidism, CAD w/ CANDIE placed in 2016 in the RCA, Hx. of CVA, HTN, presented with exertional chest pain and shortness of breath for the last 2 weeks. NSTEMI in setting of CAD s/p CANDIE - 2016 - EKG w/ ST depression in lateral leads - Troponin elevated at 0.133 and returned to 0.077 - continued ASA, Metoprolol, Losartan, and Atorvastatin - Cardiology consulted and he was seen by Dr. Zhang, the decision was made to ma nage him medically - started on Imdur ER 30mg daily - BP mildly elevated while hospitalized, after 2 weeks if BP is elevated consider increasing losartan from 25 mg to 50 mg Acid reflux - Started pantoprazole 40mg PO daily while inpatient Type 2 diabetes mellitus - HbA1C , previously well controlled Hypertension - Continue metoprolol succinate and losartan - Consider increasing Losartan after 2 weeks as above Hypothyroidism - Repeat TSH as last test > 1 year previous - Continue levothyroxine 175 mcg PO daily (2) IDDM (insulin dependent diabetes mellitus): (3) Diabetic nephropathy: (4) Hypothyroidism: (5) Hypertension: (6) Coronary artery disease: (7) Acid reflux: (8) Type 2 diabetes mellitus: (9) S/P drug eluting coronary stent placement: Total Time Total Time Spent Total Time Spent (In Minutes): <30 Discharge Plan Discharge Items Patient Disposition: Home - Self-Care Reason For Visit: NSTEMI Discharge Diagnosis: NSTEMI Activity: Per Instructions section Non-emergency contact: Primary Care Provider and Patient Financial Specialist Call non-emergency contact if: your pain is not controlled and your pain is unusual for you Follow-up/Referrals: Royce Macario PA-C [Physician Damage Prevention Coordinator] - 08/07/19 4:00 pm (Please, follow up at [facility] Cardiology Office with Royce Macario PA-C on August 06 at 4:00 pm. *The office is located in [address] of [facility], next to this hospital. If you need to change this appointment, call the office at [phone].) Baldev Busch MD [Primary Care Provider] - 07/29/19 11:00 am (Please, follow up at Dr. Busch's office with his associate, Kamala MOHR, on SundayJuly 28 at 11:00 am. *If you need to change this appointment, call their office at [phone].) Diet: Regular Addtl Attending Provider Instructions: Chest pain You were admitted to the hospital for chest pain and shortness of breath over the last 2 weeks. We will be starting a new medication for you to help decrease your symptoms and improve your outcomes. If you are experiencing worsening and changes in your chest pain, sweating, nausea and worsening shortness of breath, you should call or come in to get evaluated. Delirium During your hospital stay you became delirious, which includes worsening trouble with memory, changes in orientation and can include hallucinations. Delirium commonly happens when older patients are in a hospital medicine for several reasons including changes in sleep patterns, pain, and importantly that there is a change in surroundings. It will be helpful to be in a familiar environment. When delirium occurs it can take time for it to resolve even after the initial insult has resolved/improved. There are typically improvements and worsening that will overall improve over a longer period of time. Maintain a regular day and night schedule. During the day, open blinds and windows or keep the lights on to encourage your loved one to stay awake and alert. During the night, dim the lights and keep noise levels low to encourage sleep. Expect sudden changes in behavior. There may be times when your loved one is normal and alert. But other times he or she is not fully present. Your loved one may forget who you are. He or she may also imagine things or speak to people who arent there. Try to stay calm during these episodes. It may help to provide a gentle touch or reassuring words. Or you may choose not to speak and simply listen. Use positive language. Try not to raise your voice or argue with your loved one. Keep conversations simple. If your loved one is confused, state simply and calmly where he or she is and what is going on Minimize the use of restraints and encourage movement as soon as possible. These can make a person more anxious, afraid, or angry and increase confusion. Alert the healthcare provider if your loved ones delirium gets worse. Pending Studies at Discharge: No Stand-Alone Forms: [facility] [employer], Smoking Cessation Medications and DC Order Prescriptions: New isosorbide mononitrate 30 mg tablet extended release 24 hr 30 mg PO DAILY Qty: 30 RF: 0 Continued aspirin 81 mg tablet,delayed release (DR/EC) 81 mg PO QAM RF: 0 atorvastatin 40 mg tablet 40 mg PO HS RF: 0 levothyroxine 175 mcg tablet 175 mcg PO QAM RF: 0 clopidogrel 75 mg tablet 75 mg PO QAM RF: 0 lorazepam 0.5 mg tablet 0.5 mg PO DAILY PRN (Reason: Anxiety) RF: 0 losartan 25 mg tablet 25 mg PO QAM RF: 0 nitroglycerin 0.4 mg tablet, sublingual 0.4 mg SL DIRECTED PRN (Reason: Chest Pain) RF: 0 metoprolol succinate [Toprol XL] 25 mg tablet extended release 24 hr 25 mg PO QAM RF: 0 Lantus Solostar U-100 Insulin 100 unit/mL (3 mL) insulin pen 16 units SQ HS RF: 0 Unknown Insulin 7 unit subcut TIDM RF: 0 Discharge Orders: Discharge Order (Routine); Ordered 07/25/19 Ordered By: Sarkis Cerna/Other Patient Handouts: Diabetes Type 2 Managing, Heart Attack Dc, Diabetes Manage A1C Test, Understanding Type 2 Diabetes, Isosorbide Mononitrate tablets Admission Data Admit Date/Time: 07/24/19 17:58 Attending Provider: Shilo Youngblood Admit Provider: Heron Vaz Primary Care Provider: Baldev Busch Other Providers: Baldev Zhang ; Heron Vaz Other Interventions: Discharge Summary Assessment (RN) Last Done: 07/25/19 15:09 DC Date/Time DO NOT enter until pt leaves facility: 07/25/19 16:45 Supervising Physician Co-Signing Physician Notes I personally examined the patient and verified all mariano points of history and exam, discussed case, and agree with decision making with Dr Marrero feeling ok wants to go home. cardiology input greatly appreciated. vitals noted nad heent nc at mmm breathing unlabored no accessory muscles good effort skin no rashes no pallor or icterus EKG, troponins noted NSTEMI/CAD -add nitrates to med management, already on good foundational management. could consider raising ARB for more afterload reduction in ~1-2wks if pressure tolerates, but agree anti-anginal effect from nitrates would be of benefit. safe/stable for home. no clear benefit of cath since known CAD, small trop bump, and senior living outcomes showing med management to be quite appropriate (as well as pt/family preference) Resident Activity Tracking Resident Involvement: Resident Care Provided Care Provided: Adult Hospital Medicine
--- NOTE | 2019-07-25 13:45 | Pharmacy Report ---
Pharmacy Glycemic Short Note 2 - Date of Service July 25, 2019 - Glycemic Short BSG Results (Last 24 hours): 07/24/19 07/24/19 07/25/19 16:27 20:34 05:29 Glucose 113 H 119 H POC Glucose 100 H 07/25/19 07/25/19 08:08 11:44 Glucose POC Glucose 148 H 153 H OUTPATIENT ANTIDIABETIC REGIMEN: * Lantus 16 units HS, Novolog 7 units TIDAC (according to med rec and outpatient fill history) * A1c = 7. * 7.3% on 12-17-2018 ASSESSMENT: * 89 yo M admitted secondary to chest pain, NSTEMI * Patient was given reduced dose of Lantus last evening (50% of home dose) due to NPO status. * Diet advanced to clear liquids, therefore I will increase Lantus. * Unable to determine post prandial needs at this time. Reassess tomorrow. PLAN FOR INPATIENT GLYCEMIC CONTROL: * Basal insulin * Lantus 14 units SQ qHS * Bolus insulin * NovoLog per scale ACHS or Q6hrs while NPO * Goal Range: Low 110 mg/dL - High 140 mg/dL * Correction Factor: 30 mg/dL/unit * Nutritional / Prandial insulin per carb ratio of 1 unit per 10 grams CHO consumed PLAN FOR DISCHARGE: * A1c= 7.3% * A1c is at goal. Continue current home regimen.
--- NOTE | 2019-07-25 15:21 | Communication Note ---
Date of Service: July 25, 2019 89 yo M w/ PMHx. IDDM, Hypothyroidism, CAD w/ CANDIE placed in 2016 in the RCA, Hx. of CVA, HTN, presented with exertional chest pain and shortness of breath for the last 2 weeks. NSTEMI in setting of CAD s/ CANDIE placed in 2016 - ASA, Metoprolol, Losartan, and Atorvastatin - Cardiology consulted - started on Imdur - Admission to observations status - Code 44 - patient has coronary disease and decision was made after initial workup to that the patient should be an observation rather than an admission I personally examined the patient and verified all mariano points of history and exam, discussed case, and agree with decision making with Dr Marrero. agree that since with hindsight his UT was quite small, and med management was all that was needed, he was able to return home within a day, observation status would suffice. Resident Activity Tracking Resident Involvement: Resident Care Provided Care Provided: Adult Hospital Medicine
--- NOTE | 2019-07-25 20:10 | Billing Data ---
Date of Service July 25, 2019 Coding Level of Care Code 44716 OBS Care - Discharge
[2019-07-25] MEDS ORDERED: ENOXAPARIN INJ 30 MG/0.3 ML SYR SQ SCH (21:00)
[2019-07-25] MEDS ORDERED: INSULIN GLARGINE SOLOSTAR 100 UNITS/ML 3 ML PEN SC SCH (21:00)
--- NOTE | 2019-07-25 23:27 | Electrocardiogram Report ---
Test Reason : Blood Pressure : / mmHG Vent. Rate : 057 BPM Atrial Rate : 057 BPM P-R Int : 254 ms QRS Dur : 098 ms QT Int : 390 ms P-R-T Axes : 033 -27 -39 degrees QTc Int : 379 ms Sinus bradycardia with 1st degree A-V block Abnormal ECG When compared with ECG of 08-SEP-2017 22:33, Premature ventricular complexes are no longer Present MN interval has increased Nonspecific T wave abnormality now evident in Inferior leads T wave inversion now evident in Anterolateral leads Confirmed by Johnathan Razo ([id number]) on 07/25/2019 11:27:23 PM Referred By: Baldev Busch Confirmed By:Johnathan Razo
--- NOTE | 2019-07-26 06:20 | Electrocardiogram Report ---
Test Reason : Blood Pressure : / mmHG Vent. Rate : 057 BPM Atrial Rate : 057 BPM P-R Int : 200 ms QRS Dur : 098 ms QT Int : 432 ms P-R-T Axes : 025 -28 141 degrees QTc Int : 420 ms Sinus bradycardia with frequent Premature ventricular complexes in a pattern of bigeminy Abnormal ECG When compared with ECG of 24-JUL-2019 16:21, Premature ventricular complexes are now Present GA interval has decreased Confirmed by Johnathan Razo ([id number]) on 07/26/2019 6:20:22 AM Referred By: Baldev Busch Confirmed By:Johnathan Razo
--- NOTE | 2019-07-26 12:24 | XCELERA ---
[id number]
--- NOTE | 2019-07-27 12:29 | Communication Note ---
Date of Service: July 27, 2019 After further review since the patient was for medical management alone and was able to go home within a day, observation status would be appropriate.
--- NOTE | 2019-07-27 19:47 | Cardiology Consultation ---
Date of Consultation July 27, 2019 Assessment & Plan (1) Coronary artery disease: 2. Hypertension 3. Dyslipidemia 4. acute/subacute right parietal CVA 09/2016 5. Frequent PVCs 6. Atrial septal aneurysm with PFO 7. Alzheimer's 8. Baseline intermittent dizziness Patient with no recurrent chest pain since admission and troponin downtrending. Has been hemodynamically and electrically stable during admission and no signs of heart failure on exam. In the setting of patient's comorbidities including prior persistent delirium with extended hospitalization recommended conservative management of ACS. Repeat echocardiogram pending. Plan to continue DAPT with aspirin, clopidogrel. Continue Toprol-XL. Will add low-dose isosorbide mononitrate. Further titration as an outpatient as able although had previously been limited by intermittent dizziness. Continue high intensity statin. From a cardiac standpoint okay to discharge later today. History of Present Illness Attending Physician: Shilo Youngblood DO History of Present Illness Mr. Lynn is a very pleasant 89-year-old man with a history of coronary artery disease post prior PCI with drug-eluting stent to ostial RCA in December 2015 known to me from the outpatient setting. He was directed to the ED by his primary care office in the setting of worsened intermittent exertional dyspnea with associated chest tightness. No real chest pain at rest. No change to current medications. EKG with more pronounced anterolateral T wave inversions. Had mild troponin elevation to 0.133 before downtrending. Today patient feeling well. Denies any chest pain overnight. Telemetry unremarkable. Prior cardiovascular studies: Echo (09/2016): LVEF 50-55%, abnormal septal motion consistent with conduction abnormality. Normal RV size and function, grade 1 diastolic dysfunction, mild mitral regurgitation, atrial septal aneurysm with [id number] interatrial shunt by Doppler, elevated CVP, estimated RA 15 Carotid Dopplers (09/2016): Less than 50 percent stenosis bilaterally Holter monitor (09/2016): Sinus rhythm, minimum 38, maximum 102, average 77. Few PACs. No complex atrial arrhythmia. Frequent PVCs in couplets brief (less than 6 beats) NSVT. PVCs compromise 22 percent of recorded beats Pharmacologic SPECT (01/2016): Minimal reversible defect in the mid to distal inferolateral wall. Hypokinesis of the septum. Normal LV systolic function with EF 58% Lexiscan induced dizziness. Cardiac catheterization (12/2015): Left main luminal irregularities, lad proximal 40%, sequential 50-60% lesions in mid LAD; circumflex luminal irregularities; dominant RCA with 95% ostial stenosis, 50-60% stenosis in right PDA; 80% stenosis in small proximal ramus PCI of ostial RCA with 4.0 x 15 mm Xience CANDIE Allergies Allergy/AdvReac Type Severity Reaction Status Date / Time metformin Allergy Unknown Gastrointestinal Verified 07/24/19 17:41 Upset Home Medications Home Medications Medication Instructions Recorded Confirmed Type Lantus Solostar U-100 Insulin 16 units SQ HS 07/24/19 07/24/19 History Unknown Insulin 7 unit SUBCUT TIDM 07/24/19 07/24/19 History aspirin 81 mg PO QAM 07/24/19 07/24/19 History atorvastatin 40 mg PO HS 07/24/19 07/24/19 History clopidogrel 75 mg PO QAM 07/24/19 07/24/19 History levothyroxine 175 mcg PO QAM 07/24/19 07/24/19 History lorazepam 0.5 mg PO DAILY PRN 07/24/19 07/24/19 History losartan 25 mg PO QAM 07/24/19 07/24/19 History metoprolol succinate [Toprol XL] 25 mg PO QAM 07/24/19 07/24/19 History nitroglycerin 0.4 mg SL DIRECTED PRN 07/24/19 07/24/19 History isosorbide mononitrate 30 mg PO DAILY #30 tab 07/25/19 Rx Patient History Family History (Updated 04/21/19 @ 14:53 by Carol Hodge) Father [employer] pneumoconiosis Brother Epilepsy Daughter Migraine headache Son Seizures Social History (Updated 07/24/19 @ 13:37 by Marcia Hurtado MA) Preferred Language: Polish Communication Ability: Effective Visual Impairment: No Limitations Hearing Ability: Use of Hearing Aid Dipper Operator Required: No Beliefs That Will Affect Care: None marital status: Current Living Situation: Spouse current occupational status: retired Feels Safe at Home: Yes Smoking Status: Former smoker Hx Alcohol Use: No Hx Substance Use: No caffeine: Yes during the past year weight has: remained stable Dental Care, Regularly: Yes Review of Systems Review of Systems: All systems reviewed & are unremarkable except as noted in HPI & below Physical Exam Physical Exam: General: Comfortable, no acute distress HEENT: Sclerae anicteric, mucous membranes moist Lungs: Clear to auscultation bilaterally, no rhonchi or wheezes Cardiac: Regular rate and rhythm, no murmurs. Abdomen: Soft, nontender, nondistended, positive bowel sounds. Extremities: Warm, well perfused, no edema. 2+ radial pulses Skin: No rashes or lesions. Neuro: Nonfocal Psych: Alert oriented, normal affect and mood PG Care Time/CCT Total # of Minutes Spent Total Time Spent with Patient: Total time spent is greater than 50% in coordination of care (as documented) at patient's floor/unit and/or counseling patient: Coding Level of Care Code 60843 Initial Inpt Care Lvl 3 Diagnoses Coronary artery disease I25.10 Associated angina: without angina Coronary Disease-Associated Artery/Lesion type: unspecified vessel or lesion type [place] vs. transplanted heart: unspecified whether [place] or transplanted heart (1) Coronary artery disease Associated angina: without angina Coronary Disease-Associated Artery/Lesion type: unspecified vessel or lesion type [place] vs. transplanted heart: unspecified whether [place] or transplanted heart Qualified Code(s): I25.10 - Atherosclerotic heart disease of [place] coronary artery without angina pectoris
== END 2019-07-25 16:45 | disposition home or self-care (01) ==
LOC: ED 16:10 → INTOOBSV 17:58 → SUATTDRO 17:58 → 2S 17:58

== ENCOUNTER 2019-10-21 12:51 | Inpatient (IN) ==
[2019-10-21] MEDS ORDERED: SODIUM CHLORIDE 0.9% 500 ML IV ONE ×2 (13:24→14:09)
[2019-10-21 13:43] LABS: Basophils # (auto) 0.01 K/uL (0-0.2); Basophils % (auto) 0.1 %; Hemoglobin 12.1 g/dL (14.0-18.0); Immature Granulocytes # (auto) 0.02 K/uL (0.00-0.02); Immature Granulocytes % (auto) 0.2 %; Lymphocytes # (auto) 0.98 K/uL (1.2-3.4); Lymphocytes % (auto) 9.9 %; Mean Corpuscular Hemoglobin 30.9 pg (25-34); Mean Corpuscular Hgb Conc 34.6 g/dL (32-36); Mean Corpuscular Volume 89.5 fL (80-100); Mean Platelet Volume 9.2 fL (7.4-10.4); Monocytes % (auto) 9.1 %; Neutrophils # (auto) 7.96 K/uL (1.4-6.5); Neutrophils % (auto) 80.7 %; Platelet Count 170 K/uL (130-400); RDW Coefficient of Variation 12.2 % (11.5-14.5); RDW Standard Deviation 39.4 fL (36.4-46.3); Red Blood Count 3.91 M/uL (4.7-6.1); White Blood Count 9.87 K/uL (4.8-10.8)
[2019-10-21 14:02] LABS: Est GFR (Non-African American) 34.5; Potassium 4.7 mmol/L (3.5-5.1)
[2019-10-21 14:03] LABS: Albumin Level 3.9 gm/dl (3.4-5.0); Calcium 9.7 mg/dl (8.5-10.1); Creatinine Clr Calc Pharmacy 28.2 ml/min
--- NOTE | 2019-10-21 14:15 | XRay Report ---
XR chest 1V portable HISTORY: 89 years-old Male weakness acute weakness COMPARISON: Chest radiograph 07/24/2019 TECHNIQUE: Portable AP view of the chest FINDINGS: Cardiomediastinal and hilar silhouettes are within normal limits. Calcified plaque of the thoracic ao rtic arch. No pneumothorax, pleural effusion, airspace consolidation or overt pulmonary edema. Cholec ystectomy. Degenerative changes of the shoulders and spine. Probable left shoulder rotator cuff calci fic tendinosis. IMPRESSION: No acute process. ACT 112: Negative or not required by law. The above report was generated using voice recognition software. It may contain grammatical, syntax o r spelling errors. Electronically signed by: Jacob Hernandez M.D. 10/21/2019 2:13 PM
[2019-10-21 14:16] LABS: Albumin Globulin Ratio 1.2 (0.9-2); Bilirubin,Total 0.5 mg/dl (0.2-1); Creatine Kinase MB 40.2 ng/ml (0.5-3.6); Globulin 3.2 gm/dl (2.5-4.0); Thyroid Stimulating Hormone 0.589 uIu/ml (0.300-4.500); Total Protein 7.1 gm/dl (6.4-8.2); Troponin I 9.79 ng/ml (0-0.045)
[2019-10-21 14:17] LABS: Appearance Urine Clear (Clear); Bacteria Urine Automated Negative (Negative); Bilirubin Urine Negative (Negative); Blood Urine Trace (Negative); Color Urine Yellow; Glucose Urine UA Negative (Negative); Ketones Urine Negative (Negative); Leukocyte Esterase Urine Negative (Negative); Nitrite Urine Negative (Negative); Protein Urine Negative (Negative); RBC Urine Automated 0-4 /hpf (0-4); Specific Gravity Urine 1.012 (1.000-1.030); Urobilinogen Urine Negative (Negative)
[2019-10-21] MEDS ORDERED: Heparin IV Standard *NO* Bolus IV ONE (14:18)
--- NOTE | 2019-10-21 14:32 | CT Scan Report ---
CT OF THE HEAD WITHOUT CONTRAST CLINICAL HISTORY: Altered mental status. COMPARISON STUDY: Head CT August 31, 2016. MRI of the brain September 28, 2016. CT DOSE: 614.27 mGy.cm TECHNIQUE: Helical axial images of the head were obtained without IV contrast. Automated exposure con trol was utilized for the study. A dose lowering technique was utilized adhering to the principles o f ALARA. FINDINGS: No acute intracranial hemorrhage, midline shift or mass effect is present. The ventricular system is unremarkable. The basilar cisterns are patent. No extra-axial collections are present. Ther e are no findings to suggest acute dural sinus thrombosis or acute territorial infarct. No significan t calvarial abnormalities are present. Visualized portions of the sinuses and mastoid air cells are c lear. IMPRESSION: No acute intracranial findings. ACT 112: Negative or not required by law. Electronically signed by: Jong Mann M.D. 10/21/2019 2:31 PM
[2019-10-21] MEDS: HEPARIN SODIUM/DEXTROSE 25,000 UNITS/500 ML BAG IV SCH (14:45)
[2019-10-21 14:48] LABS: INR 1.1 (0.9-1.1); Partial Thromboplastin Ratio 0.9; Partial Thromboplastin Time 24.5 Seconds (21.0-31.0); Prothrombin Time 11.6 Seconds (9.0-12.0)
[2019-10-21] MEDS ORDERED: CARBOHYDRATES FOR HYPOGLYCEMIA PO PRN (17:15)
[2019-10-21] MEDS ORDERED: ACETAMINOPHEN 325 MG TAB PO PRN (17:15)
[2019-10-21] MEDS ORDERED: LORazepam 0.5 MG TAB PO PRN (17:15)
[2019-10-21] MEDS ORDERED: GLUCOSE 40% GEL 15 GM TUBE PO PRN (17:15)
[2019-10-21] MEDS ORDERED: GLUCOSE 10 TABS/TUBE PO PRN (17:15)
[2019-10-21] MEDS ORDERED: DEXTROSE 50% 50 ML SYRINGE IV PRN (17:15)
[2019-10-21] MEDS ORDERED: GLUCAGON FOR INJ 1 MG VIAL SQ PRN (17:15)
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
--- NOTE | 2019-10-21 18:19 | Electrocardiogram Report ---
Test Reason : Blood Pressure : / mmHG Vent. Rate : 115 BPM Atrial Rate : 115 BPM P-R Int : 224 ms QRS Dur : 100 ms QT Int : 322 ms P-R-T Axes : 000 -24 087 degrees QTc Int : 445 ms Sinus tachycardia with 1st degree A-V block with Premature atrial complexes with Aberrant conduction possible Inferior infarct , age undetermined Anterior infarct , age undetermined Abnormal ECG When compared with ECG of 25-JUL-2019 11:13, Premature ventricular complexes are no longer Present Aberrant conduction is now Present Vent. rate has increased BY 58 BPM Inferior infarct is now Present Confirmed by Aron Fenton ([id number]) on 10/21/2019 6:18:51 PM Referred By: ED Confirmed By:Cisco Fenton
[2019-10-21] MEDS: INSULIN ASPART 100 UNITS/ML 3 ML PEN SC SCH ×2 (18:46→20:39)
[2019-10-21] MEDS ORDERED: NORMOSOL-R 500 ML IV ONE (20:00)
[2019-10-21] MEDS: INSULIN GLARGINE SOLOSTAR 100 UNITS/ML 3 ML PEN SQ SCH (20:36)
[2019-10-21] MEDS: ATORVASTATIN 40 MG TAB PO SCH (20:38)
[2019-10-21] MEDS: METOPROLOL TARTRATE 25 MG TAB PO SCH (20:38)
[2019-10-21] MEDS ORDERED: INSULIN GLARGINE SOLOSTAR 100 UNITS/ML 3 ML PEN SQ SCH (21:00)
[2019-10-21 23:04] LABS: Partial Thromboplastin Time 84.8 Seconds (21.0-31.0)
[2019-10-22 02:43] LABS: Hemoglobin 11.4 g/dL (14.0-18.0); Mean Corpuscular Hemoglobin 31.3 pg (25-34); Mean Corpuscular Hgb Conc 34.5 g/dL (32-36); Mean Corpuscular Volume 90.7 fL (80-100); Mean Platelet Volume 9.5 fL (7.4-10.4); Platelet Count 157 K/uL (130-400); RDW Coefficient of Variation 12.3 % (11.5-14.5); RDW Standard Deviation 40.7 fL (36.4-46.3); Red Blood Count 3.64 M/uL (4.7-6.1); White Blood Count 8.34 K/uL (4.8-10.8)
[2019-10-22 03:03] LABS: Albumin Level 3.1 gm/dl (3.4-5.0); Calcium 8.7 mg/dl (8.5-10.1); Creatinine Clr Calc Pharmacy 38.1 ml/min; Est GFR (African American) 57.7; Est GFR (Non-African American) 49.8; Magnesium 2.1 mg/dl (1.8-2.4); Potassium 4.1 mmol/L (3.5-5.1)
[2019-10-22 03:22] LABS: Bilirubin,Total 0.4 mg/dl (0.2-1); Total Protein 6.1 gm/dl (6.4-8.2); Troponin I 30.2 ng/ml (0-0.045)
[2019-10-22] MEDS: LEVOTHYROXINE SODIUM 175 MCG TABLET PO SCH (05:54)
[2019-10-22 06:07] LABS: Estimated Average Glucose 169 mg/dl; Hemoglobin A1C 7.5 % (4.5-5.6)
[2019-10-22] MEDS: INSULIN ASPART 100 UNITS/ML 3 ML PEN SC SCH ×4 (06:27→20:50)
[2019-10-22 06:33] LABS: Partial Thromboplastin Ratio 3.6
[2019-10-22 06:34] LABS: Partial Thromboplastin Time 100.6 Seconds (21.0-31.0)
[2019-10-22] MEDS: ASPIRIN 81 MG ECTAB PO SCH (08:19)
[2019-10-22] MEDS: PANTOprazole 40 MG TAB PO SCH (08:19)
[2019-10-22] MEDS: METOPROLOL TARTRATE 25 MG TAB PO SCH ×2 (08:19→20:50)
[2019-10-22] MEDS: LOSARTAN POTASSIUM 25 MG TAB PO SCH (08:19)
[2019-10-22] MEDS: CLOPIDOGREL BISULFATE 75 MG TAB PO SCH (08:19)
[2019-10-22] MEDS: ISOSORBIDE MONO EXTENDED REL 60 MG TABCR PO SCH (08:19)
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
[2019-10-22] MEDS: HEPARIN SODIUM/DEXTROSE 25,000 UNITS/500 ML BAG IV SCH ×2 (12:15→14:00)
[2019-10-22 13:54] LABS: Partial Thromboplastin Ratio 2.9
[2019-10-22] MEDS ORDERED: Nursing to Pharmacy Communication SCH (16:45)
[2019-10-22] MEDS ORDERED: HALOPERIDOL LACTATE 5 MG/ML 1 ML VIAL IV PRN (17:15)
--- NOTE | 2019-10-22 17:45 | XCELERA ---
[id number]
--- NOTE | 2019-10-22 19:15 | Electrocardiogram Report ---
Test Reason : Blood Pressure : / mmHG Vent. Rate : 069 BPM Atrial Rate : 069 BPM P-R Int : 224 ms QRS Dur : 098 ms QT Int : 416 ms P-R-T Axes : 050 -28 -46 degrees QTc Int : 445 ms Sinus rhythm with 1st degree A-V block Abnormal ECG When compared with ECG of 21-OCT-2019 13:30, Aberrant conduction is no longer Present Vent. rate has decreased BY 46 BPM Confirmed by Aron Fenton ([id number]) on 10/22/2019 7:14:50 PM Referred By: REFERRED SELF Confirmed By:Cisco Fenton
--- NOTE | 2019-10-22 19:18 | Electrocardiogram Report ---
Test Reason : Blood Pressure : / mmHG Vent. Rate : 066 BPM Atrial Rate : 066 BPM P-R Int : 248 ms QRS Dur : 094 ms QT Int : 452 ms P-R-T Axes : -03 -39 209 degrees QTc Int : 473 ms Sinus rhythm with 1st degree A-V block Left axis deviation Inferior infarct (cited on or before 21-OCT-2019) Anterior infarct (cited on or before 21-OCT-2019) Abnormal ECG When compared with ECG of 21-OCT-2019 21:33, (unconfirmed) No significant change was found Confirmed by Aron Fenton ([id number]) on 10/22/2019 7:17:54 PM Referred By: REFERRED SELF Confirmed By:Cisco Fenton
[2019-10-22 20:34] LABS: Partial Thromboplastin Ratio 2.2
[2019-10-22 20:38] LABS: Partial Thromboplastin Time 62.1 Seconds (21.0-31.0)
[2019-10-22] MEDS: INSULIN GLARGINE SOLOSTAR 100 UNITS/ML 3 ML PEN SQ SCH (20:50)
[2019-10-22] MEDS: ATORVASTATIN 40 MG TAB PO SCH (20:50)
--- NOTE | 2019-10-22 21:42 | Cardiology Consultation ---
Date of Consultation October 22, 2019 Assessment & Plan (1) NSTEMI (non-ST elevated myocardial infarction): 2. CAD post PCI to ostial RCA 2015 3. Ischemic cardiomyopathy 4. Dementia with prior CVA 5. Type 2 DM 6. Mitral regurgitation 7. Resolved JONATHAN Patient with no recurrent chest pain since admission and troponin downtrending. Has been hemodynamically and electrically stable during admission and no signs of heart failure on exam. Reviewed prior echo from July and from today. Mild decrease in LV function with new worsened septal/apical hypokinesis - likely LAD distribution. Reviewed prior cardiac cath images, LAD small vessel with diffuse disease. With co-morbidities and prior coronary anatomy feel risks of attempted revascularization outweigh benefits and recommend continued medical management. -- Continue heparin infusion for 48hrs -- Continue DAPT with ASA/Clopidogrel -- Titrate up GDMT as BP/HR allow -- increase toprol XL to 50mg daily, continue losartan. -- Continue current imdur -- continue statin -- low salt diet and daily weights Will continue to follow. History of Present Illness Attending Physician: Parag Ferrera MD History of Present Illness Mr. Lynn is a very pleasant 89-year-old man with a history of dementia and coronary artery disease post prior PCI with drug-eluting stent to ostial RCA in December 2015 known to me from the outpatient setting. He was admitted yesterday after he had a period of confusion leading him to wander off from his house. He was found several hours later by police. He remained confused at time of arrival to [facility]. As part of initial work-up was found to have an elevated troponin which subsequently peaked at 38. EKG showed sinus rhythm with lateral ST depressions and occasional PVCs. Patient has denied chest pain throughout his hospital course. Today patient states that he is feeling well. Does not remember many details of his event leading to hospitalization. Has been hemodynamically stable since admission. One episode of nonsustained VT, 7 beats on telemetry otherwise unremarkable. He was previously admitted 07/2019 with exertional dyspnea, st changes on ECG and minimally elevated troponin. At that time echo showed EF 35-40% with akinetic basal inferior wall. Repeat echo today EF 30-35%, akinetic base to mid inferior wall and severely hypokinetic septum and apex. Prior cardiovascular studies: Echo (09/2016): LVEF 50-55%, abnormal septal motion consistent with conduction abnormality. 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 Hypokinesis of the septum. Normal LV systolic function with EF 58% Lexiscan induced dizziness. Cardiac catheterization (12/2015): Left main luminal irregularities, lad proximal 40%, sequential 50-60% lesions in mid LAD; circumflex luminal irregularities; dominant RCA with 95% ostial stenosis, 50-60% stenosis in right PDA; 80% stenosis in small proximal ramus PCI of ostial RCA with 4.0 x 15 mm Xience CANDIE Allergies Allergy/AdvReac Type Severity Reaction Status Date / Time metformin Allergy Unknown Gastrointestinal Verified 10/21/19 15:03 Upset Home Medications Home Medications Medication Instructions Recorded Confirmed Type Lantus Solostar U-100 Insulin 16 units SQ HS 07/24/19 10/21/19 History clopidogrel 75 mg PO QAM 07/24/19 10/21/19 History levothyroxine 175 mcg PO QAM 07/24/19 10/21/19 History metoprolol succinate [Toprol XL] 25 mg PO QAM 07/24/19 10/21/19 History nitroglycerin 0.4 mg SL DIRECTED PRN 07/24/19 10/21/19 History insulin aspart U-100 100 unit/mL 10 units SQ TIDM #15 ml 09/22/19 10/21/19 Rx (3 mL) subcutaneous pen isosorbide mononitrate 60 mg 60 mg PO QAM #90 tab 09/22/19 10/21/19 Rx tablet,extended release 24 hr atorvastatin 40 mg tablet 40 mg PO HS #90 tab 09/29/19 10/21/19 Rx blood sugar diagnostic #400 ea 10/13/19 Rx blood-glucose meter #1 ea 10/13/19 Rx lancets 28 gauge #100 ea 10/13/19 Rx Efdktfy-E-Valgfhkbyebz-Apap 1 - 2 cap PO Q4H PRN 10/21/19 10/21/19 History losartan [Cozaar] 25 mg PO DAILY 10/21/19 10/21/19 History meclizine 12.5 - 25 mg PO TID PRN 10/21/19 10/21/19 History omega-3 fatty acids-vitamin E 1 cap PO DAILY 10/21/19 10/21/19 History [Fish Oil] vit C,G-Wl-gomtw-lutein-zeaxan 1 tab PO AMHS 10/21/19 10/21/19 History [PreserVision AREDS-2] Patient History Medical History Ischemic stroke (2017) Patent foramen ovale Prostatitis Sensorineural hearing loss of both ears Surgical History History of appendectomy History of cholecystectomy History of colonoscopy History of shoulder surgery Family History Father [place] workers pneumoconiosis Brother Epilepsy Daughter Migraine headache Son Seizures Social History Smoking Status: Former smoker Tobacco Type: Cigarettes Second Hand Exposure: No; Do You Dip or Chew Tobacco: No; Tobacco Cessation Education Requested by Patient: No Hx Alcohol Use: No Hx Substance Use: No Preferred Language: Portuguese Communication Ability: dementia Communication Ability Comment: rambling speech Visual Impairment: No Limitations Hearing Ability: Use of Hearing Aid Inlayer Required: No Beliefs That Will Affect Care: None marital status: Current Living Situation: Spouse current occupational status: retired Other Information That Helps Us Care for You: No Feels Safe at Home: Yes Safety Concerns: Feels Safe At This Time caffeine: Yes during the past year weight has: remained stable Dental Care, Regularly: Yes Seatbelt Use: always Review of Systems Review of Systems: All systems reviewed & are unremarkable except as noted in HPI & below Physical Exam Physical Exam: General: Comfortable, no acute distress Eyes: Sclerae anicteric, extraocular movements intact HENT: Oropharynx clear mucous membranes moist Lungs: Clear to auscultation bilaterally Cardiac: Regular rate and rhythm, 2/6 holosystolic murmur Abdomen: Soft, nontender, nondistended, positive bowel sounds. Neuro: Nonfocal Psych: Alert orient to person, normal affect and mood Extremities/Vascular: -- 2+ radial bilaterally -- No edema Results & Data ([facility]) Vital Signs (Past 12 Hours) Vital Signs Temp Pulse Pulse Resp BP Pulse Ox 10/22/19 19:13 97.3 F L 67 16 115/51 L 98 10/22/19 16:00 61 10/22/19 15:27 97.5 F L 61 20 109/55 L 97 10/22/19 14:45 100 10/22/19 11:45 97.9 F 56 L 19 101/52 L 97 PG Care Time/CCT Total # of Minutes Spent Total Time Spent with Patient: Total time spent is greater than 50% in coordination of care (as documented) at patient's floor/unit and/or counseling patient: Coding Level of Care Code 75407 Initial Inpt Care Lvl 3 Diagnoses NSTEMI (non-ST elevated myocardial infarction) I21.4
[2019-10-23] MEDS: LEVOTHYROXINE SODIUM 175 MCG TABLET PO SCH (06:30)
[2019-10-23 08:12] LABS: Basophils # (auto) 0.02 K/uL (0-0.2); Basophils % (auto) 0.3 %; Eosinophils # (auto) 0.24 K/uL (0-0.5); Eosinophils % (auto) 3.3 %; Hematocrit (blood only) 36.6 % (42-52); Hemoglobin 11.9 g/dL (14.0-18.0); Immature Granulocytes # (auto) 0.02 K/uL (0.00-0.02); Immature Granulocytes % (auto) 0.3 %; Lymphocytes # (auto) 1.85 K/uL (1.2-3.4); Lymphocytes % (auto) 25.1 %; Mean Corpuscular Hemoglobin 29.8 pg (25-34); Mean Corpuscular Hgb Conc 32.5 g/dL (32-36); Mean Corpuscular Volume 91.5 fL (80-100); Mean Platelet Volume 9.3 fL (7.4-10.4); Monocytes # (auto) 0.64 K/uL (0.11-0.59); Monocytes % (auto) 8.7 %; Neutrophils % (auto) 62.3 %; Platelet Count 175 K/uL (130-400); RDW Coefficient of Variation 12.4 % (11.5-14.5); RDW Standard Deviation 41.4 fL (36.4-46.3); White Blood Count 7.37 K/uL (4.8-10.8)
[2019-10-23] MEDS: PANTOprazole 40 MG TAB PO SCH (08:16)
[2019-10-23] MEDS: ISOSORBIDE MONO EXTENDED REL 60 MG TABCR PO SCH (08:16)
[2019-10-23] MEDS: CLOPIDOGREL BISULFATE 75 MG TAB PO SCH (08:16)
[2019-10-23] MEDS: METOPROLOL SUCC 50MG EXT REL TAB PO SCH (08:17)
[2019-10-23] MEDS: ASPIRIN 81 MG ECTAB PO SCH (08:17)
[2019-10-23] MEDS: LOSARTAN POTASSIUM 25 MG TAB PO SCH (08:17)
[2019-10-23] MEDS: INSULIN ASPART 100 UNITS/ML 3 ML PEN SC SCH ×4 (08:19→20:55)
[2019-10-23 08:29] LABS: BUN Creatinine Ratio 22.3 (10-20); Calcium 8.7 mg/dl (8.5-10.1); Creatinine Clr Calc Pharmacy 34.6 ml/min; Est GFR (African American) 51.3; Est GFR (Non-African American) 44.2; Potassium 4.1 mmol/L (3.5-5.1)
[2019-10-23 08:41] LABS: Partial Thromboplastin Time 54.7 Seconds (21.0-31.0)
[2019-10-23] MEDS: HEPARIN SODIUM/DEXTROSE 25,000 UNITS/500 ML BAG IV SCH ×2 (09:26→17:54)
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
[2019-10-23] MEDS: INSULIN GLARGINE SOLOSTAR 100 UNITS/ML 3 ML PEN SQ SCH (20:54)
[2019-10-23] MEDS: ATORVASTATIN 40 MG TAB PO SCH (21:17)
--- NOTE | 2019-10-24 01:32 | Emergency Department Note ---
History of Present Illness General Chief complaint: Neuro Symptoms/Deficit Stated complaint: DISORIENTED, TOOK OFF ON FOOT, ELEVATED SUGAR Time Seen by Provider: 10/21/19 13:13 Source: patient, family, EMS, RN notes reviewed and old records reviewed Mode of arrival: EMS Limitations: no limitations History of Present Illness Provider complaint: PT ran away from home Onset (ago): hour(s) 4 Maximum Pain Intensity: 0 Associated symptoms: + confusion; no chest pain, no diaphoresis, no fever/chills, no headaches, no nausea/vomiting and no shortness of breath Treatments prior to arrival: none This is an 89-year-old male who presents to the emergency department complaining of running away from home. The patient's family is concerned that they can no longer take care of him at home and feel he needs to be placed. The patient himself has no complaints. He does know where he is. He denies any chest pain or shortness of breath. Home Medications Home Medications Medication Instructions Recorded Confirmed Type Lantus Solostar U-100 Insulin 16 units SQ HS 07/24/19 10/21/19 History clopidogrel 75 mg PO QAM 07/24/19 10/21/19 History levothyroxine 175 mcg PO QAM 07/24/19 10/21/19 History metoprolol succinate [Toprol XL] 25 mg PO QAM 07/24/19 10/21/19 History nitroglycerin 0.4 mg SL DIRECTED PRN 07/24/19 10/21/19 History insulin aspart U-100 100 unit/mL 10 units SQ TIDM #15 ml 09/22/19 10/21/19 Rx (3 mL) subcutaneous pen isosorbide mononitrate 60 mg 60 mg PO QAM #90 tab 09/22/19 10/21/19 Rx tablet,extended release 24 hr atorvastatin 40 mg tablet 40 mg PO HS #90 tab 09/29/19 10/21/19 Rx blood sugar diagnostic #400 ea 10/13/19 Rx blood-glucose meter #1 ea 10/13/19 Rx lancets 28 gauge #100 ea 10/13/19 Rx Dfloasr-Y-Ydpddsjxuqst-Apap 1 - 2 cap PO Q4H PRN 10/21/19 10/21/19 History losartan [Cozaar] 25 mg PO DAILY 10/21/19 10/21/19 History meclizine 12.5 - 25 mg PO TID PRN 10/21/19 10/21/19 History omega-3 fatty acids-vitamin E 1 cap PO DAILY 10/21/19 10/21/19 History [Fish Oil] vit C,D-Wv-anznk-lutein-zeaxan 1 tab PO AMHS 10/21/19 10/21/19 History [PreserVision AREDS-2] Allergies Allergy/AdvReac Type Severity Reaction Status Date / Time metformin Allergy Unknown Gastrointestinal Verified 10/21/19 15:03 Upset Past Med/Surg History Medical History Ischemic stroke (2017) Patent foramen ovale Prostatitis Sensorineural hearing loss of both ears Surgical History History of appendectomy History of cholecystectomy History of colonoscopy History of shoulder surgery Family History Father [place] workers pneumoconiosis Brother Epilepsy Daughter Migraine headache Son Seizures Social History Smoking Status: Former smoker Tobacco Type: Cigarettes Second Hand Exposure: No; Do You Dip or Chew Tobacco: No; Tobacco Cessation Education Requested by Patient: No Hx Alcohol Use: No Hx Substance Use: No Preferred Language: Belarusian Communication Ability: dementia Communication Ability Comment: rambling speech Visual Impairment: No Limitations Hearing Ability: Use of Hearing Aid Sharepoint Architect Required: No Beliefs That Will Affect Care: None marital status: Current Living Situation: Spouse current occupational status: retired Other Information That Helps Us Care for You: No Feels Safe at Home: Yes Safety Concerns: Feels Safe At This Time caffeine: Yes during the past year weight has: remained stable Dental Care, Regularly: Yes Seatbelt Use: always Review of Systems A total of 10 systems reviewed and were otherwise negative Physical Exam VITAL SIGNS - Vital signs and nursing notes were reviewed. GENERAL - 89-year-old male appearing stated age who is in no acute distress. Communicates well with provider and answers questions appropriately. SKIN - Without rashes. HEAD - NC/AT. EYES - PERRL with EOMI bilaterally. Sclera anicteric. Palpebral conjunctiva pink and moist with no injection noted. EARS - No deformities of external structures noted on gross examination bilaterally. No pain elicited with palpation of the tragus bilaterally. External auditory canals without discharge or otorrhea. Tympanic membranes pearly raza without retraction or bulging. No fluid or purulent material visualized behind the TM. Handle of malleus, umbo, cone of light, pars tensa/flaccid all easily visualized. NOSE - Midline and without cyanosis. No epistaxis or purulent drainage noted. Septum midline without deviation or septal hematoma noted. MOUTH/OROPHARYNX - Without perioral cyanosis. Buccal mucosa pink and moist and without leukoplakia. Tongue midline with equal elevation of palate bilaterally. No tonsillar hypertrophy, erythema, or exudates noted. dentition noted. NECK - Neck with FROM. Supple to palpation. lymphadenopathy noted. No nuchal rigidity. LUNGS - Chest wall symmetric without accessory muscle use, intercostals r etractions, or central cyanosis. Normal vesicular breath sounds CTA B/L. No wheezes, rales, or rhonchi appreciated. CARDIAC - RRR with S1/S2. No murmur, rubs, or gallops appreciated. ABDOMEN - Abdominal contour without pulsations or visible masses. BS normoactive all four quadrants. No tenderness, palpable masses, hepatosplenomegaly, or ascites noted. EXTREMITIES - No clubbing or peripheral cyanosis. No pretibial edema present. +3/5 radial, posterior tibial, and dorsalis pedis pulses palpated throughout. +5/5 strength noted in UE/LE bilaterally. NEUROLOGIC - Cranial nerves II through XII grossly intact. Sensory intact to light touch throughout. Patellar reflexes +2/4. PSYCH - A&Ox3 and cooperates fully with examiner. Pt is very pleasant and interacts well with examiner. Course Administered Medications Aspirin (Aspirin 81 Mg Ectab) 81 mg PO QAM [facility] Stop: 11/21/19 08:59 Last Admin: 10/23/19 08:17 Dose: 81 mg Documented by: [id number] Admin: 10/22/19 08:19 Dose: 81 mg Documented by: [id number] Atorvastatin Calcium (Atorvastatin 40 Mg Tab) 40 mg PO HS [facility] Stop: 11/20/19 20:59 Last Admin: 10/23/19 21:17 Dose: 40 mg Documented by: [id number] Admin: 10/22/19 20:50 Dose: 40 mg Documented by: [id number] Admin: 10/21/19 20:38 Dose: 40 mg Documented by: [id number] Clopidogrel Bisulfate (Clopidogrel Bisulfate 75 Mg Tab) 75 mg PO QAM [facility] Stop: 11/21/19 08:59 Last Admin: 10/23/19 08:16 Dose: 75 mg Documented by: [id number] Admin: 10/22/19 08:19 Dose: 75 mg Documented by: [id number] Insulin Aspart (Insulin Aspart 100 Units/Ml 3 Ml Pen) 0 units SC ACHS [facility] Stop: 11/21/19 16:59 Last Admin: 10/23/19 20:55 Dose: 1 units Documented by: [id number] Cosigned by: [id number] Admin: 10/23/19 16:55 Dose: 2 units Documented by: [id number] Cosigned by: [id number] Admin: 10/23/19 12:05 Dose: 6 units Documented by: [id number] Cosigned by: [id number] Admin: 10/23/19 08:19 Dose: 4 units Documented by: [id number] Cosigned by: [id number] Admin: 10/22/19 20:50 Dose: 1 units Documented by: [id number] Cosigned by: [id number] Admin: 10/22/19 17:08 Dose: Not Given Documented by: [id number] Cosigned by: [id number] Insulin Glargine (Insulin Glargine Solostar 100 Units/Ml 3 Ml Pen) 10 units SQ HS [facility] Stop: 11/20/19 20:59 Last Admin: 10/23/19 20:54 Dose: 10 units Documented by: [id number] Cosigned by: [id number] Admin: 10/22/19 20:50 Dose: 10 units Documented by: [id number] Cosigned by: [id number] Admin: 10/21/19 20:36 Dose: 10 units Documented by: [id number] Cosigned by: [id number] Isosorbide Mononitrate (Isosorbide [place] Extended Rel 60 Mg Tabcr) [facility] Stop: 11/21/19 08:59 Last Admin: 10/23/19 08:16 Dose: 60 mg Documented by: [id number] Admin: 10/22/19 08:19 Dose: 60 mg Documented by: [id number] Levothyroxine Sodium (Levothyroxine Sodium 175 Mcg Tablet) 175 mcg PO DAILYBB [facility] Stop: 11/21/19 06:29 Last Admin: 10/23/19 06:30 Dose: 175 mcg Documented by: [id number] Admin: 10/22/19 05:54 Dose: 175 mcg Documented by: [id number] Losartan Potassium (Losartan Potassium 25 Mg Tab) [facility] [place] Stop: 11/21/19 08:59 Last Admin: 10/23/19 08:17 Dose: 25 mg Documented by: [id number] Admin: 10/22/19 08:19 Dose: 25 mg Documented by: [id number] Metoprolol Succinate (Metoprolol Succ 50mg Ext Rel Tab) 50 mg PO [facility] Stop: 11/22/19 08:59 Last Admin: 10/23/19 08:17 Dose: 50 mg Documented by: [id number] Pantoprazole Sodium (Pantoprazole 40 Mg Tab) 40 mg PO DAILY [facility] Stop: 11/21/19 08:59 Last Admin: 10/23/19 08:16 Dose: 40 mg Documented by: [id number] Admin: 10/22/19 08:19 Dose: 40 mg Documented by: [id number] Discontinued Medications Heparin Sodium/Dextrose (Heparin Iv Standard *No* Bolus) 1 ea IV ONE ONE; Protocol Stop: 10/21/19 14:19 Last Admin: 10/21/19 14:49 Dose: Not Given Documented by: [id number] Sodium Chloride (Nss) 500 mls @ 999 mls/hr IV .Q31M ONE Stop: 10/21/19 13:54 Last Infusion: 10/21/19 14:16 Dose: 0 mls/hr Documented by: [id number] Admin: 10/21/19 13:45 Dose: 999 mls/hr Documented by: [id number] Sodium Chloride (Nss) 500 mls @ 999 mls/hr IV .Q31M ONE Stop: 10/21/19 14:39 Last Infusion: 10/21/19 14:57 Dose: 0 mls/hr Documented by: [id number] Admin: 10/21/19 14:20 Dose: 999 mls/hr Documented by: [id number] Heparin Sodium/Dextrose (Heparin Sodium/Dextrose) 25,000 units in 500 mls @ 17 mls/hr IV .Q24H [facility]; Protocol Stop: 11/20/19 14:29 Last Admin: 10/23/19 17:54 Dose: Not Given Documented by: [id number] Titration: 10/23/19 17:51 Dose: 0 units/hr, 0 mls/hr Documented by: [id number] Cosigned by: [id number] Titration: 10/23/19 09:26 Dose: 850 units/hr, 17 mls/hr Documented by: [id number] Cosigned by: [id number] Admin: 10/23/19 09:26 Dose: Not Given Documented by: [id number] Titration: 10/23/19 07:02 Dose: 850 units/hr, 17 mls/hr Documented by: [id number] Cosigned by: [id number] Titration: 10/22/19 23:04 Dose: 850 units/hr, 17 mls/hr Documented by: [id number] Cosigned by: [id number] Titration: 10/22/19 20:20 Dose: 850 units/hr, 17 mls/hr Documented by: [id number] Cosigned by: [id number] Titration: 10/22/19 15:07 Dose: 850 units/hr, 17 mls/hr Documented by: [id number] Cosigned by: [id number] Admin: 10/22/19 14:00 Dose: 850 units/hr, 17 mls/hr Documented by: [id number] Cosigned by: [id number] Titration: 10/22/19 14:00 Dose: 1,000 units/hr, 20 mls/hr Documented by: [id number] Cosigned by: [id number] Admin: 10/22/19 12:15 Dose: Not Given Documented by: [id number] Titration: 10/22/19 07:38 Dose: 1,000 units/hr, 20 mls/hr Documented by: [id number] Cosigned by: [id number] Titration: 10/22/19 07:00 Dose: 0 units/hr, 0 mls/hr Documented by: [id number] Cosigned by: [id number] Titration: 10/22/19 06:35 Dose: 0 units/hr, 0 mls/hr Documented by: [id number] Cosigned by: [id number] Titration: 10/21/19 23:50 Dose: 1,150 units/hr, 23 mls/hr Documented by: [id number] Cosigned by: [id number] Titration: 10/21/19 23:04 Dose: 0 units/hr, 0 mls/hr Documented by: [id number] Cosigned by: [id number] Titration: 10/21/19 19:04 Dose: 1,300 units/hr, 26 mls/hr Documented by: [id number] Cosigned by: [id number] Admin: 10/21/19 14:45 Dose: 1,300 units/hr, 26 mls/hr Documented by: [id number] Cosigned by: [id number] Parenteral Electrolytes (Normosol-R) 500 mls @ 100 mls/hr IV .Q5H ONE Stop: 10/22/19 00:59 Last Infusion: 10/22/19 02:28 Dose: 0 mls/hr Documented by: [id number] Admin: 10/21/19 20:34 Dose: 100 mls/hr Documented by: [id number] Insulin Aspart (Insulin Aspart 100 Units/Ml 3 Ml Pen) 0 units SC ACHS [facility] Stop: 10/21/19 21:01 Last Admin: 10/21/19 20:39 Dose: 1 units Documented by: [id number] Cosigned by: [id number] Admin: 10/21/19 18:46 Dose: 5 units Documented by: [id number] Cosigned by: [id number] Insulin Aspart (Insulin Aspart 100 Units/Ml 3 Ml Pen) 0 units SC Q6 [facility] Stop: 11/21/19 05:59 Last Admin: 10/22/19 11:29 Dose: Not Given Documented by: [id number] Cosigned by: [id number] Admin: 10/22/19 06:27 Dose: Not Given Documented by: [id number] Cosigned by: [id number] Metoprolol Tartrate (Metoprolol Tartrate 25 Mg Tab) 25 mg PO BID [facility] Stop: 11/20/19 20:59 Last Admin: 10/22/19 20:50 Dose: 25 mg Documented by: [id number] Admin: 10/22/19 08:19 Dose: 25 mg Documented by: [id number] Admin: 10/21/19 20:38 Dose: 25 mg Documented by: [id number] Critical Care Time I have personally spent greater than 90 minutes of critical care time in the direct management of this patient. This includes bedside care, interpretation of diagnostic studies, and testing, discussion with consultants, patient, and family members, and other required patient management activities. This 90 minutes is in excess of all separately billable procedures. Medical Decision Making Differential Diagnosis Infection, dehydration, metabolic abnormality, hypo/hyperglycemia, electrolyte disturbance, anemia, hypoxia, cardiac sources, intracerebral event, toxicologic, neurologic, as well as other pathologies. Medical Records Attestation: I reviewed the patient's medical records. Home Medications Current Medication List: was personally reviewed by me Laboratory Data Attestation: I reviewed the patient's lab results. Result diagrams: 10/23/19 07:58 10/23/19 07:58 Lab Results 10/21/19 10/21/19 10/21/19 Range/Units 13:35 13:35 13:35 WBC 9.87 (4.8-10.8) K/uL RBC 3.91 L (4.7-6.1) M/uL Hgb 12.1 L (14.0-18.0) g/dL Hct 35.0 L (42-52) % MCV 89.5 (80-100) fL MCH 30.9 (25-34) pg MCHC 34.6 (32-36) g/dL RDW Std Deviation 39.4 (36.4-46.3) fL RDW Coeff of Nia 12.2 (11.5-14.5) % Plt Count 170 (130-400) K/uL MPV 9.2 (7.4-10.4) fL Immature Gran % (Auto) 0.2 % Neut % (Auto) 80.7 % Lymph % (Auto) 9.9 % [place] % (Auto) 9.1 % Eos % (Auto) 0.0 % Baso % (Auto) 0.1 % Neut # (Auto) 7.96 H (1.4-6.5) K/uL Lymph # (Auto) 0.98 L (1.2-3.4) K/uL [place] # (Auto) 0.90 H (0.11-0.59) K/uL Eos # (Auto) 0.00 (0-0.5) K/uL Baso # (Auto) 0.01 (0-0.2) K/uL Immature Gran # (Auto) 0.02 (0.00-0.02) K/uL PT 11.6 (9.0-12.0) Seconds INR 1.1 (0.9-1.1) APTT 24.5 (21.0-31.0) Seconds PTT Ratio 0.9 Sodium 142 (136-145) mmol/L Potassium 4.7 (3.5-5.1) mmol/L Chloride 109 H (98-107) mmol/L Carbon Dioxide 23 (21-32) mmol/L Anion Gap 9.0 (3-11) BUN 34 H (7-18) mg/dl Creatinine 1.72 H (0.6-1.4) mg/dl Est Cr Clr Drug Dosing 28.2 ml/min Est GFR ( Amer) 40.0 Est GFR (Non-Af Amer) 34.5 BUN/Creatinine Ratio 20.0 (10-20) Glucose 181 H (70-99) mg/dl Calcium 9.7 (8.5-10.1) mg/dl Total Bilirubin 0.5 (0.2-1) mg/dl AST 69 H (15-37) U/L ALT 34 (12-78) U/L Alkaline Phosphatase 99 (45-117) U/L Total Creatine Kinase 925 H (39-308) U/L CK-MB (CK-2) 40.2 H (0.5-3.6) ng/ml CK/CKMB % Calc 4.3 H (0-3.0) Troponin I 9.790 H* (0-0.045) ng/ml Total Protein 7.1 (6.4-8.2) gm/dl Albumin 3.9 (3.4-5.0) gm/dl Globulin 3.2 (2.5-4.0) gm/dl Albumin/Globulin Ratio 1.2 (0.9-2) TSH 0.589 (0.300-4.500) uIu/ml Urine Color Urine Appearance (Clear) Urine pH (4.5-7.5) Ur Specific [place] (1.000-1.030) Urine Protein (Negative) Urine Glucose (UA) (Negative) Urine Ketones (Negative) Urine Blood (Negative) Urine Nitrite (Negative) Urine Bilirubin (Negative) Urine Urobilinogen (Negative) Ur Leukocyte Esterase (Negative) Urine WBC (Auto) (0-5) /hpf Urine RBC (Auto) (0-4) /hpf U Hyaline Cast (Auto) (0-5) /lpf U Epithel Cells (Auto) (0-5) /lpf Urine Bacteria (Auto) (Negative) 10/21/19 Range/Units 13:52 WBC (4.8-10.8) K/uL RBC (4.7-6.1) M/uL Hgb (14.0-18.0) g/dL Hct (42-52) % MCV (80-100) fL MCH (25-34) pg MCHC (32-36) g/dL RDW Std Deviation (36.4-46.3) fL RDW Coeff of Nia (11.5-14.5) % Plt Count (130-400) K/uL MPV (7.4-10.4) fL Immature Gran % (Auto) % Neut % (Auto) % Lymph % (Auto) % [place] % (Auto) % Eos % (Auto) % Baso % (Auto) % Neut # (Auto) (1.4-6.5) K/uL Lymph # (Auto) (1.2-3.4) K/uL [place] # (Auto) (0.11-0.59) K/uL Eos # (Auto) (0-0.5) K/uL Baso # (Auto) (0-0.2) K/uL Immature Gran # (Auto) (0.00-0.02) K/uL PT (9.0-12.0) Seconds INR (0.9-1.1) APTT (21.0-31.0) Seconds PTT Ratio Sodium (136-145) mmol/L Potassium (3.5-5.1) mmol/L Chloride (98-107) mmol/L Carbon Dioxide (21-32) mmol/L Anion Gap (3-11) BUN (7-18) mg/dl Creatinine (0.6-1.4) mg/dl Est Cr Clr Drug Dosing ml/min Est GFR ( Amer) Est GFR (Non-Af Amer) BUN/Creatinine Ratio (10-20) Glucose (70-99) mg/dl Calcium (8.5-10.1) mg/dl Total Bilirubin (0.2-1) mg/dl AST (15-37) U/L ALT (12-78) U/L Alkaline Phosphatase (45-117) U/L Total Creatine Kinase (39-308) U/L CK-MB (CK-2) (0.5-3.6) ng/ml CK/CKMB % Calc (0-3.0) Troponin I (0-0.045) ng/ml Total Protein (6.4-8.2) gm/dl Albumin (3.4-5.0) gm/dl Globulin (2.5-4.0) gm/dl Albumin/Globulin Ratio (0.9-2) TSH (0.300-4.500) uIu/ml Urine Color Yellow Urine Appearance Clear (Clear) Urine pH 5.0 (4.5-7.5) Ur Specific [place] 1.012 (1.000-1.030) Urine Protein Negative (Negative) Urine Glucose (UA) Negative (Negative) Urine Ketones Negative (Negative) Urine Blood Trace H (Negative) Urine Nitrite Negative (Negative) Urine Bilirubin Negative (Negative) Urine Urobilinogen Negative (Negative) Ur Leukocyte Esterase Negative (Negative) Urine WBC (Auto) 1-5 (0-5) /hpf Urine RBC (Auto) 0-4 (0-4) /hpf U Hyaline Cast (Auto) 1-5 (0-5) /lpf U Epithel Cells (Auto) 5-10 H (0-5) /lpf Urine Bacteria (Auto) Negative (Negative) Imaging Data Radiologist's Impression: [place], [place] [phone] CT Scan Report Patient: VINNIE JARRETTdmit Date: 10/21/19 MR#: [id number]: [address] [facility] Acct ID:[id number]: [address] [facility] Zip: [place] [address] Age: 89Location: ED Sex: MRoom/Bed: Att Phy:Diagnosis: DISORIENTED, TOOK OFF ON FOOT, ELEVATED SUGAR Sarah Phy: Aron Busch, MDService Date: 10/21/19 Fam Phy:Interpreting Phy: Jong Mann MD Admit Phy: Ordering Phy: Juanpablo Reddy MD cc: ~ CT OF THE HEAD WITHOUT CONTRAST CLINICAL HISTORY: Altered mental status. COMPARISON STUDY: Head CT August 31, 2016. MRI of the brain September 28, 2016. CT DOSE: 614.27 mGy.cm TECHNIQUE: Helical axial images of the head were obtained without IV contrast. Automated exposure control was utilized for the study. A dose lowering technique was utilized adhering to the principles of ALARA. FINDINGS: No acute intracranial hemorrhage, midline shift or mass effect is present. The ventricular system is unremarkable. The basilar cisterns are patent. No extra-axial collections are present. There are no findings to suggest acute dural sinus thrombosis or acute territorial infarct. No significant calvarial abnormalities are present. Visualized portions of the sinuses and mastoid air cells are clear. IMPRESSION: No acute intracranial findings. ACT 112: Negative or not required by law. Electronically signed by: Jong Mann M.D. 10/21/2019 2:31 PM Dictated: 10/21/19 1428 Transcribed: 10/21/191427 [facility], [place] [phone] XRay Report Patient: VINNIE JARRETTdmit Date: 10/21/19 MR#: [id number]: [address] Acct ID:[id number]: [address] Date: [facility] Zip: [place] [address] Age: 89Location: ED Sex: MRoom/Bed: Att Phy:Diagnosis: DISORIENTED, TOOK OFF ON FOOT, ELEVATED SUGAR Sarah Phy: Aron Busch, MDService Date: 10/21/19 Fam Phy:Interpreting Phy: Puma Hernandez Admit Phy: Ordering Phy: Juanpablo Reddy MD cc: ~ XR chest 1V portable HISTORY: 89 years-old Male weakness acute weakness COMPARISON: Chest radiograph 07/24/2019 TECHNIQUE: Portable AP view of the chest FINDINGS: Cardiomediastinal and hilar silhouettes are within normal limits. Calcified plaque of the thoracic aortic arch. No pneumothorax, pleural effusion, airspace consolidation or overt pulmonary edema. Cholecystectomy. Degenerative changes of the shoulders and spine. Probable left shoulder rotator cuff calcific tendinosis. IMPRESSION: No acute process. ACT 112: Negative or not required by law. The above report was generated using voice recognition software. It may contain grammatical, syntax or spelling errors. Electronically signed by: Jacob Hernandez M.D. 10/21/2019 2:13 PM Dictated: 10/21/19 1412 Transcribed: 10/21/191411 ECG Data Attestation: I personally reviewed and interpreted this ECG as follows: Indication: + altered mental status Rate (beats per minute): 115 Rhythm: + sinus tachycardia ECG Intervals/blocks: + First degree AV block ECG ST segments: no ST depression and no ST elevation ECG Findings: + Q waves (Anterior, Inferior) and + PVCs Comparison ECG Date: from (07/25/2019) Change: the following changes noted (No pVCs present ) MDM Narrative Patient was seen and evaluated as above in room A11. Review was performed of nursing notes and vital signs. I did review pertinent previous visits and patient history. After obtaining a thorough history and physical examination the above work up was performed. This is an 89-year-old male who presents the emergency department after running away from home. The family is concerned that they can no longer take care of him and feel he needs placement. The patient himself denies any chest pain or shortness of breath however his troponin is grossly elevated. EKG does not show any evidence of a STEMI. Because of all the findings I did discuss the case with cardiology who asked that the patient be started on a heparin drip. I did also discuss the case the hospitalist service who did agree to admit the patient. Patient and family are in agreement with the treatment plan. An order was placed for continuous cardiac monitoring. The monitor shows a rate of 67 with Normal Sinus rhythm. The patient was evaluated during the global COVID-19 pandemic, and that diagnosis was suspected/considered upon their initial presentation. Their evaluation, treatment and testing was consistent with current guidelines for patients who present with complaints or symptoms that may be related to COVID- 19. Impression & Plan Dementia, Hypertension, Type 2 diabetes mellitus, NSTEMI (non-ST elevated myocardial infarction), Acute renal injury Discharge Plan Visit Data Chief Complaint: Neuro Symptoms/Deficit Stated Complaint: DISORIENTED, TOOK OFF ON FOOT, ELEVATED SUGAR ED Provider: Juanpablo Reddy Discharge Problem: Dementia, Hypertension, Type 2 diabetes mellitus, NSTEMI (non-ST elevated myocardial infarction), Acute renal injury Patient Disposition: Admitted As Inpatient Discharge Instructions Interventions: ED Discharge Assessment Last Done: 10/21/19 15:48 Discharge Problem: Dementia Qualifiers: Dementia type: unspecified type Dementia behavioral disturbance: with behavioral disturbance Qualified Code(s): F03.91 - Unspecified dementia with behavioral disturbance Hypertension Qualifiers: Hypertension type: unspecified Qualified Code(s): I10 - Essential (primary) hyp ertension Type 2 diabetes mellitus Qualifiers: Diabetes mellitus buttermaker insulin use: unspecified buttermaker insulin use status Diabetes mellitus complication status: with other specified complication Qualified Code(s): E11.69 - Type 2 diabetes mellitus with other specified complication
[2019-10-24 06:45] LABS: Partial Thromboplastin Ratio 0.9; Partial Thromboplastin Time 24.5 Seconds (21.0-31.0)
[2019-10-24] MEDS: LEVOTHYROXINE SODIUM 175 MCG TABLET PO SCH (06:58)
[2019-10-24] MEDS: INSULIN ASPART 100 UNITS/ML 3 ML PEN SC SCH ×2 (08:12→11:56)
[2019-10-24] MEDS: METOPROLOL SUCC 50MG EXT REL TAB PO SCH (08:55)
[2019-10-24] MEDS: ASPIRIN 81 MG ECTAB PO SCH (08:56)
[2019-10-24] MEDS: PANTOprazole 40 MG TAB PO SCH (08:56)
[2019-10-24] MEDS: ISOSORBIDE MONO EXTENDED REL 60 MG TABCR PO SCH (08:56)
[2019-10-24] MEDS: LOSARTAN POTASSIUM 25 MG TAB PO SCH (08:56)
[2019-10-24] MEDS: CLOPIDOGREL BISULFATE 75 MG TAB PO SCH (08:57)
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
--- NOTE | 2019-10-24 23:34 | Cardiology Progress Note ---
Date of Service October 24, 2019 Assessment & Plan (1) NSTEMI (non-ST elevated myocardial infarction): 2. CAD post PCI to ostial RCA 2016 3. Ischemic cardiomyopathy 4. Dementia with prior CVA 5. Type 2 DM 6. Mitral regurgitation 7. Resolved JONATHAN Stable from a cardiac standpoint. No chest pain. Hemodynamically and electrically stable. No evidence of heart failure. From a cardiac standpoint OK with discharge to personal [facility]. -- Continue DAPT with ASA/clopidogrel. Continue Imdur, statin. -- Continue toprol xL, losartan Follow-up with cardiology in 2-3 weeks. Admission and Anticipated Discharge Date Admission Date: October 21, 2019 Subjective Feeling well. Denies chest pain or shortness of breath. Doesn't feel thinking back at baseline but otherwise no new complaints. tele reviewed -- no events. Review of Systems Review of Systems: All systems reviewed & are unremarkable except as noted in HPI & below Physical Exam Physical Exam: General: Comfortable, no acute distress Eyes: Sclerae anicteric, extraocular movements intact HENT: Oropharynx clear mucous membranes moist Lungs: Clear to auscultation bilaterally Cardiac: Regular rate and rhythm, 2/6 holosystolic murmur Abdomen: Soft, nontender, nondistended, positive bowel sounds. Neuro: Nonfocal Psych: Alert orient to person, normal affect and mood Extremities/Vascular: -- 2+ radial bilaterally -- No edema Results & Data ([facility]) Vital Signs (Past 12 Hours) Vital Signs Temp Pulse Resp BP BP Pulse Ox 10/24/19 13:48 97.7 F 71 18 137/67 100/52 L 98 PG Care Time/CCT Total # of Minutes Spent Total Time Spent with Patient: Total time spent is greater than 50% in coordination of care (as documented) at patient's floor/unit and/or counseling patient: Coding Level of Care Code 01711 Subseq Hosp Care Lvl 2 Diagnoses NSTEMI (non-ST elevated myocardial infarction) I21.4
== END 2019-10-24 15:46 | disposition home or self-care (01) | DRG 281 ==
LOC: ED 12:51 → 2S 15:48 → SUATTDRO 17:11